=== PATIENT | female | born 1950 | race Two or more races ===

== ENCOUNTER 2018-04-21 12:09 | Inpatient (IN) | payer OTHER, MEDICAID ==
[~2018-04-21] VITALS: Ht 157.5 cm; Wt 72.2 kg
[~2018-04-21 12:09] MED LIST: GEMF600T3 PO; HYDR12.56 PO; MET50T GT; OMEP20CA74 OR
[2018-04-21] MEDS ORDERED: IPRATROPIUM BROM 0.5 MG/2.5ML INH SOL HHN ONE (12:45)
[2018-04-21] MEDS ORDERED: ALBUTEROL SULF 2.5 MG/0.5ML(0.5%) NEB SOLN HHN ONE (12:45)
[2018-04-21] MEDS ORDERED: methylPREDNISolone SOD SUCC 125 MG/2 ML VL IV ONE (12:45)
[2018-04-21 13:42] LABS: Basophils # (auto) 0.1 uL; Basophils % (auto) 0.9 % (0.0-2.0); Eosinophils # (auto) 0.1 uL; Eosinophils % (auto) 2.3 % (0.0-7.0); Hematocrit 39.7 % (36.0-46.0); Hemoglobin 13.1 g/dL (12.2-16.2); Lymphocytes # (auto) 1.4 uL; Lymphocytes % (auto) 26.2 % (10.0-50.0); Mean Corpuscular Hemoglobin 28.4 pg (28.0-32.0); Mean Corpuscular Hgb Conc. 32.9 g/dL (32.0-36.0); Mean Corpuscular Volume 86.3 fL (80.0-100.0); Monocytes # (auto) 0.3 uL; Monocytes % (auto) 5.4 % (0.0-12.0); Neutrophils # (auto) 3.5 uL; Neutrophils % (auto) 65.2 % (37.0-80.0); Nucleated Red Blood Cells % 0.1 %; Platelet Count (auto) 240 10^3/uL (140-450); Red Cell Distribution Width 18.4 % (11.8-14.3); White Blood Cell 5.4 10^3/uL (4.4-10.8)
[2018-04-21 13:50] LABS: Albumin 3.6 g/dL (3.4-5.0); BUN/Creatinine Ratio 18.9; Magnesium 2.3 mg/dL (1.6-2.6); Potassium 3.8 mmol/L (3.5-5.1)
[2018-04-21 13:55] LABS: Bilirubin, Total 0.6 mg/dL (0.2-1.0); Total Protein 7.3 g/dL (6.4-8.2)
[2018-04-21] MEDS ORDERED: ASPirin-EC 81 mg tab PO ONE (14:30)
[2018-04-21] MEDS ORDERED: LACTULOSE 20Gm/30ML SOLN PO PRN (14:45)
[2018-04-21] MEDS ORDERED: NITROGLYCERIN 0.4 MG SL TAB SL PRN (14:45)
[2018-04-21] MEDS ORDERED: ALBUTEROL SULF 2.5 MG/0.5ML(0.5%) NEB SOLN NEB PRN (14:45)
[2018-04-21] MEDS ORDERED: TEMAZEPAM 15 MG CAP PO PRN (14:45)
[2018-04-21] MEDS ORDERED: MORPHINE SULF INJ 2 MG/ML SYRINGE 1ML IV PRN (14:45)
[2018-04-21] MEDS ORDERED: ACETAMINOPHEN 500 MG TAB PO PRN (14:45)
[2018-04-21] MEDS ORDERED: LORazepam 0.5 MG TAB PO PRN (14:45)
[2018-04-21 14:54] VITALS: BP 146/107
[2018-04-21] MEDS ORDERED: ENOXAPARIN SOD 40 MG/0.4 ML SYRINGE SC SCH (15:00)
[2018-04-21 15:02] LABS: Urine Bacteria FEW /hpf (None Seen); Urine Blood Negative /uL (Negative); Urine Specific Gravity 1.012 (1.001-1.035); Urine WBC 15 /hpf (0 - 5)
[2018-04-21] MEDS ORDERED: POTASSIUM CHL 20 Meq TABLET PO ONE (15:15)
[2018-04-21] MEDS ORDERED: CARVEDILOL 12.5 MG TAB PO ONE (15:15)
[2018-04-21] MEDS ORDERED: FUROSEMIDE 40 MG/4 ML VIAL IV ONE (15:15)
[2018-04-21 15:22] LABS: Alcohol, Urine < 3.0 mg/dL (0-5); Amphetamine Screen, Urine NEGATIVE (NEGATIVE); Barbiturate Scree,Urine NEGATIVE (NEGATIVE); Benzodiazephine Screen, Urine NEGATIVE (NEGATIVE); Cannabinoid Screen, Urine POSITIVE (NEGATIVE); Cocaine Screen, Urine NEGATIVE (NEGATIVE); Opiate Scree,Urine NEGATIVE (NEGATIVE); Phencyclidine Screen, Urine NEGATIVE (NEGATIVE)
[2018-04-21] MEDS: NITROGLYCERIN 0.2MG/HR TOPICAL PATCH TD SCH (15:30)
[2018-04-21] MEDS: ENOXAPARIN SOD 60 MG/0.6 ML SYRINGE SC SCH ×2 (15:45→17:15)
[2018-04-21 17:00] VITALS: BP 147/96
[2018-04-21] MEDS: HYDROcodone-ACET 5/325MG TAB PO PRN (18:35)
[2018-04-21] MEDS: ALBUTEROL SULF 2.5 MG/0.5ML(0.5%) NEB SOLN NEB SCH ×2 (18:46→22:27)
[2018-04-21] MEDS: IPRATROPIUM BROM 0.5 MG/2.5ML INH SOL NEB SCH ×2 (18:46→22:27)
[2018-04-21] MEDS: MORPHINE SULF INJ 2 MG/ML SYRINGE 1ML IV PRN (21:39)
[2018-04-21] MEDS: CARVEDILOL 12.5 MG TAB PO SCH (21:46)
[2018-04-21] MEDS: ATORVASTATIN 20 MG TAB PO SCH (21:46)
[2018-04-21] MEDS: SODIUM CHLOR 0.9% PF (SALINE LOCK) 10ML VIAL/SYR IV SCH (21:48)
[2018-04-21 22:00] VITALS: BP 129/98
[2018-04-21] MEDS ORDERED: METOPROLOL TARTRATE 25 MG TAB PO SCH (22:00)
[2018-04-21] MEDS ORDERED: methylPREDNISolone SOD SUCC 40 MG/ML VL IV SCH (22:00)
[2018-04-22] MEDS: ENOXAPARIN SOD 60 MG/0.6 ML SYRINGE SC SCH ×2 (04:21→15:42)
[2018-04-22 04:54] VITALS: BP 144/81
[2018-04-22] MEDS: ALBUTEROL SULF 2.5 MG/0.5ML(0.5%) NEB SOLN NEB SCH ×3 (06:00→19:11)
[2018-04-22] MEDS: IPRATROPIUM BROM 0.5 MG/2.5ML INH SOL NEB SCH ×3 (06:00→19:12)
[2018-04-22 06:32] LABS: Basophils # (auto) 0 uL; Basophils % (auto) 0.1 % (0.0-2.0); Eosinophils # (auto) 0 uL; Hematocrit 40.2 % (36.0-46.0); Hemoglobin 13.6 g/dL (12.2-16.2); Lymphocytes # (auto) 0.8 uL; Mean Corpuscular Hgb Conc. 33.7 g/dL (32.0-36.0); Monocytes # (auto) 0.1 uL; Monocytes % (auto) 2.3 % (0.0-12.0); Neutrophils # (auto) 3.9 uL; Neutrophils % (auto) 81.6 % (37.0-80.0); Nucleated Red Blood Cells % 0.1 %; Platelet Count (auto) 258 10^3/uL (140-450); Red Blood Cells 4.68 10^6/uL (4.0-5.20); Red Cell Distribution Width 18.1 % (11.8-14.3); White Blood Cell 4.8 10^3/uL (4.4-10.8)
[2018-04-22] MEDS: SODIUM CHLOR 0.9% PF (SALINE LOCK) 10ML VIAL/SYR IV SCH ×3 (07:11→21:47)
[2018-04-22] MEDS: MORPHINE SULF INJ 2 MG/ML SYRINGE 1ML IV PRN ×3 (07:12→21:47)
[2018-04-22 07:17] LABS: Albumin 3.8 g/dL (3.4-5.0); BUN/Creatinine Ratio 21.4; Bilirubin, Total 1.2 mg/dL (0.2-1.0); Calcium 9.1 mg/dL (8.5-10.1); Potassium 4.1 mmol/L (3.5-5.1); Total Protein 7.5 g/dL (6.4-8.2)
[2018-04-22 09:00] VITALS: BP 127/102
[2018-04-22] MEDS ORDERED: cloNIDine HCL 0.1 MG TAB PO PRN (10:00)
[2018-04-22] MEDS ORDERED: PROMETHAZINE-DM 5 ML ORAL SYRUP PO PRN (10:00)
[2018-04-22] MEDS: POTASSIUM CHL 20 Meq TABLET PO SCH (10:37)
[2018-04-22] MEDS: NITROGLYCERIN 0.2MG/HR TOPICAL PATCH TD SCH (10:41)
[2018-04-22] MEDS: FUROSEMIDE 40 MG/4 ML VIAL IV SCH (10:41)
[2018-04-22] MEDS: ENALAPRIL MALEATE 2.5 MG TAB PO SCH (10:42)
[2018-04-22] MEDS: HCTZ 25 MG TAB PO SCH (10:42)
[2018-04-22] MEDS: ASPirin 81 mg TAB PO SCH (10:43)
[2018-04-22] MEDS: CARVEDILOL 12.5 MG TAB PO SCH ×2 (10:44→21:35)
[2018-04-22] MEDS: GEMFIBROZIL 600 MG TAB PO SCH (10:44)
[2018-04-22] MEDS: PANTOPRAZOLE 40 MG TAB PO SCH (10:44)
[2018-04-22 13:00] VITALS: BP 145/107
[2018-04-22] MEDS ORDERED: CLOPIDOGREL 300 MG TAB PO ONE (13:00)
[2018-04-22 21:32] VITALS: BP 152/92
[2018-04-22] MEDS: ATORVASTATIN 20 MG TAB PO SCH (21:35)
[2018-04-22] MEDS: HYDROcodone-ACET 5/325MG TAB PO PRN (21:36)
[2018-04-23 03:05] VITALS: BP 136/90
[2018-04-23] MEDS: ENOXAPARIN SOD 60 MG/0.6 ML SYRINGE SC SCH ×2 (03:42→15:17)
[2018-04-23 05:00] VITALS: BP 141/92
[2018-04-23] MEDS: ALBUTEROL SULF 2.5 MG/0.5ML(0.5%) NEB SOLN NEB SCH ×4 (05:34→18:20)
[2018-04-23] MEDS: IPRATROPIUM BROM 0.5 MG/2.5ML INH SOL NEB SCH ×4 (05:34→18:20)
[2018-04-23 06:48] LABS: Basophils # (auto) 0 uL; Basophils % (auto) 0.5 % (0.0-2.0); Eosinophils # (auto) 0.1 uL; Eosinophils % (auto) 1.6 % (0.0-7.0); Hemoglobin 13.4 g/dL (12.2-16.2); Lymphocytes # (auto) 1.5 uL; Lymphocytes % (auto) 22.7 % (10.0-50.0); Mean Corpuscular Hemoglobin 29.7 pg (28.0-32.0); Mean Corpuscular Hgb Conc. 34.2 g/dL (32.0-36.0); Mean Corpuscular Volume 86.7 fL (80.0-100.0); Monocytes # (auto) 0.3 uL; Monocytes % (auto) 4.6 % (0.0-12.0); Neutrophils # (auto) 4.7 uL; Neutrophils % (auto) 70.6 % (37.0-80.0); Platelet Count (auto) 246 10^3/uL (140-450); Red Cell Distribution Width 18.1 % (11.8-14.3); White Blood Cell 6.7 10^3/uL (4.4-10.8)
[2018-04-23 07:00] LABS: BUN/Creatinine Ratio 24.7; Calcium 8.9 mg/dL (8.5-10.1); Potassium 3.2 mmol/L (3.5-5.1)
[2018-04-23] MEDS: SODIUM CHLOR 0.9% PF (SALINE LOCK) 10ML VIAL/SYR IV SCH ×3 (07:03→22:25)
[2018-04-23] MEDS: PROMETHAZINE HCL 25 MG/ML 1ML IV PRN ×3 (07:03→22:27)
[2018-04-23] MEDS: MORPHINE SULF INJ 2 MG/ML SYRINGE 1ML IV PRN ×3 (07:04→22:28)
[2018-04-23] MEDS ORDERED: MIDAZOLAM HCL 1MG/1ML-2 ML VIAL IV ONE (07:45)
[2018-04-23] MEDS ORDERED: LIDOCAINE VISCOUS 2% 15ML UD MT ONE (07:45)
[2018-04-23] MEDS ORDERED: fentaNYL CITRATE 100 MCG/2 ML VL IV ONE (07:45)
[2018-04-23 09:00] VITALS: BP 144/81
[2018-04-23] MEDS: PANTOPRAZOLE 40 MG TAB PO SCH (11:06)
[2018-04-23] MEDS: GEMFIBROZIL 600 MG TAB PO SCH (11:06)
[2018-04-23] MEDS: ASPirin 81 mg TAB PO SCH (11:07)
[2018-04-23] MEDS: CARVEDILOL 12.5 MG TAB PO SCH (11:07)
[2018-04-23] MEDS: CLOPIDOGREL BISULFATE 75 MG TAB PO SCH (11:07)
[2018-04-23] MEDS: POTASSIUM CHL 20 Meq TABLET PO SCH (11:07)
[2018-04-23] MEDS: ENALAPRIL MALEATE 2.5 MG TAB PO SCH (11:08)
[2018-04-23] MEDS: NITROGLYCERIN 0.2MG/HR TOPICAL PATCH TD SCH (11:08)
[2018-04-23 12:20] VITALS: BP 131/91
[2018-04-23] MEDS ORDERED: POTASSIUM CHL 20 Meq TABLET PO ONE (13:00)
[2018-04-23] MEDS: FUROSEMIDE 40 MG/4 ML VIAL IV SCH (13:52)
[2018-04-23] MEDS: HCTZ 25 MG TAB PO SCH (13:53)
[2018-04-23] MEDS ORDERED: AZITHROMYCIN 250 MG TAB PO ONE (14:00)
[2018-04-23 16:55] VITALS: BP 99/72
[2018-04-23] MEDS: CEPHALEXIN 250 MG CAP PO SCH (18:58)
[2018-04-23 22:00] VITALS: BP 108/69
[2018-04-23] MEDS: CARVEDILOL 3.125 MG TAB PO SCH (22:26)
[2018-04-23] MEDS: ATORVASTATIN 20 MG TAB PO SCH (22:26)
[2018-04-24] VITALS (7 sets, daily range): BP systolic 80–128; BP diastolic 18–93
[2018-04-24] MEDS: IPRATROPIUM BROM 0.5 MG/2.5ML INH SOL NEB SCH ×3 (00:45→11:48)
[2018-04-24] MEDS: ALBUTEROL SULF 2.5 MG/0.5ML(0.5%) NEB SOLN NEB SCH ×3 (00:45→11:48)
[2018-04-24] MEDS: CEPHALEXIN 250 MG CAP PO SCH ×4 (00:56→17:11)
[2018-04-24] MEDS: ENOXAPARIN SOD 60 MG/0.6 ML SYRINGE SC SCH ×2 (03:43→15:06)
[2018-04-24 05:21] LABS: Basophils # (auto) 0.1 uL; Basophils % (auto) 0.9 % (0.0-2.0); Eosinophils # (auto) 0.3 uL; Eosinophils % (auto) 3.5 % (0.0-7.0); Hematocrit 45.7 % (36.0-46.0); Lymphocytes # (auto) 2.5 uL; Lymphocytes % (auto) 33.8 % (10.0-50.0); Mean Corpuscular Hemoglobin 28.4 pg (28.0-32.0); Mean Corpuscular Hgb Conc. 32.7 g/dL (32.0-36.0); Mean Corpuscular Volume 86.7 fL (80.0-100.0); Monocytes # (auto) 0.4 uL; Monocytes % (auto) 5.4 % (0.0-12.0); Neutrophils # (auto) 4.1 uL; Neutrophils % (auto) 56.4 % (37.0-80.0); Platelet Count (auto) 196 10^3/uL (140-450); Red Blood Cells 5.27 10^6/uL (4.0-5.20); Red Cell Distribution Width 18.3 % (11.8-14.3); White Blood Cell 7.3 10^3/uL (4.4-10.8)
[2018-04-24 06:06] LABS: BUN/Creatinine Ratio 20.1; Calcium 8.4 mg/dL (8.5-10.1); Potassium 3.6 mmol/L (3.5-5.1)
[2018-04-24] MEDS: SODIUM CHLOR 0.9% PF (SALINE LOCK) 10ML VIAL/SYR IV SCH ×2 (06:11→13:21)
[2018-04-24] MEDS: PROMETHAZINE HCL 25 MG/ML 1ML IV PRN ×2 (08:42→14:23)
[2018-04-24] MEDS: MORPHINE SULF INJ 2 MG/ML SYRINGE 1ML IV PRN ×2 (08:42→14:24)
[2018-04-24] MEDS: FUROSEMIDE 40 MG/4 ML VIAL IV SCH (09:17)
[2018-04-24] MEDS: NITROGLYCERIN 0.2MG/HR TOPICAL PATCH TD SCH (09:17)
[2018-04-24] MEDS: ASPirin 81 mg TAB PO SCH (09:18)
[2018-04-24] MEDS: CARVEDILOL 3.125 MG TAB PO SCH (09:18)
[2018-04-24] MEDS: POTASSIUM CHL 20 Meq TABLET PO SCH (09:18)
[2018-04-24] MEDS: ENALAPRIL MALEATE 2.5 MG TAB PO SCH (09:19)
[2018-04-24] MEDS: GEMFIBROZIL 600 MG TAB PO SCH (09:19)
[2018-04-24] MEDS: CLOPIDOGREL BISULFATE 75 MG TAB PO SCH (09:19)
[2018-04-24] MEDS: PANTOPRAZOLE 40 MG TAB PO SCH (09:19)
[2018-04-24] MEDS: HCTZ 25 MG TAB PO SCH (09:19)
[2018-04-24] MEDS ORDERED: AZITHROMYCIN 250 MG TAB PO SCH (10:00)
[2018-04-30] MEDS ORDERED: ATOR1TAB PO (07:41)
[2018-04-30] MEDS ORDERED: LEVO200T45 PO (07:41)
[2018-04-30] MEDS ORDERED: METO25TA62 PO (07:41)
[2018-04-30] MEDS ORDERED: ASPI-325 PO (07:41)
[2018-04-30] MEDS ORDERED: AMLO10TA2 PO (07:41)
== END 2018-04-24 18:35 | disposition home or self-care (01) | DRG 280 ==
LOC: ER 12:09 → EDBD 12:09 → TELE 12:10 → TELE-WESTW 16:07
PROVIDERS: ADMIT Internal Medicine; ATTEND Internal Medicine
DX: I13.0 Hypertensive heart and chronic kidney disease with heart failure and stage 1 through stage 4 chronic kidney disease, or unspecified chronic kidney disease (principal); I21.4 Non-ST elevation (NSTEMI) myocardial infarction; I50.43 Acute on chronic combined systolic (congestive) and diastolic (congestive) heart failure; J96.91 Respiratory failure, unspecified with hypoxia; J44.1 Chronic obstructive pulmonary disease with (acute) exacerbation; J45.901 Unspecified asthma with (acute) exacerbation; E87.1 Hypo-osmolality and hyponatremia; I48.1 Persistent atrial fibrillation; E03.9 Hypothyroidism, unspecified; E78.5 Hyperlipidemia, unspecified; F17.210 Nicotine dependence, cigarettes, uncomplicated; I25.110 Atherosclerotic heart disease of native coronary artery with unstable angina pectoris; N18.3 Chronic kidney disease, stage 3 (moderate); L98.9 Disorder of the skin and subcutaneous tissue, unspecified; Z86.718 Personal history of other venous thrombosis and embolism; I25.2 Old myocardial infarction; Z95.5 Presence of coronary angioplasty implant and graft; Z88.5 Allergy status to narcotic agent; Z88.1 Allergy status to other antibiotic agents; Z91.14 Patient's other noncompliance with medication regimen
CPT/HCPCS: 36415; 71046; 80048; 80053; 80061; 80307; 81001; 82550; 83605; 83735; 83880; 84443; 84484; 85025; 85379; 85652; 86141; 87040; 93005; 93312; 94640; 94761; 96374; 96375; 99152; J2250

== ENCOUNTER 2018-07-12 15:53 | Inpatient (IN) | payer MEDICARE, MEDICAID ==
[~2018-07-12] VITALS: Ht 157.5 cm; Wt 67.0 kg
[~2018-07-12 15:53] MED LIST changes: +AMLO10TA12 PO; +ASPI-325 PO; +ATOR1TAB PO; -GEMF600T3 PO; +GEMF600T7 PO; +LEVO200T7 PO; -MET50T GT
[2018-07-12 17:07] LABS: Urine Bacteria FEW /hpf (None Seen); Urine Blood Negative /uL (Negative); Urine Mucus MODERATE (None Seen); Urine Specific Gravity 1.029 (1.001-1.035); Urine WBC 32 /hpf (0 - 5)
[2018-07-12] MEDS ORDERED: ASPirin 81 mg TAB PO ONE (17:15)
[2018-07-12] MEDS ORDERED: ONDANSETRON HCL 4 MG/2 ML VIAL IV ONE ×2 (17:45→19:45)
[2018-07-12] MEDS ORDERED: MORPHINE SULFATE 4 MG/ML SYR/VIAL IV ONE ×2 (17:45→19:45)
[2018-07-12 18:47] LABS: Basophils # (auto) 0.1 uL; Basophils % (auto) 0.9 % (0.0-2.0); Eosinophils # (auto) 0.2 uL; Hemoglobin 10.4 g/dL (12.2-16.2); Lymphocytes # (auto) 1.3 uL; Lymphocytes % (auto) 20.3 % (10.0-50.0); Mean Corpuscular Hemoglobin 28.4 pg (28.0-32.0); Mean Corpuscular Hgb Conc. 33.7 g/dL (32.0-36.0); Mean Corpuscular Volume 84.3 fL (80.0-100.0); Monocytes # (auto) 0.6 uL; Monocytes % (auto) 9.4 % (0.0-12.0); Neutrophils # (auto) 4.1 uL; Neutrophils % (auto) 66.4 % (37.0-80.0); Platelet Count (auto) 306 10^3/uL (140-450); Red Blood Cells 3.67 10^6/uL (4.0-5.20); Red Cell Distribution Width 14.1 % (11.8-14.3); White Blood Cell 6.2 10^3/uL (4.4-10.8)
[2018-07-12 19:01] LABS: INR 1.05 (0.9-1.15); Partial Thromboplastin Time 28.5 sec (23.78-33.04); Prothrombin Time 11.2 sec (9.27-12.13)
[2018-07-12 19:03] LABS: Albumin 3.2 g/dL (3.4-5.0); BUN/Creatinine Ratio 37.1; Calcium 8.3 mg/dL (8.5-10.1); Magnesium 1.8 mg/dL (1.6-2.6); Potassium 3.9 mmol/L (3.5-5.1)
[2018-07-12 19:08] LABS: Bilirubin, Total 0.4 mg/dL (0.2-1.0); Total Protein 6.3 g/dL (6.4-8.2)
[2018-07-12] MEDS ORDERED: SOTA80TA PO (20:01)
[2018-07-12] MEDS ORDERED: CARV12.544 PO (20:01)
[2018-07-12] MEDS ORDERED: FENO1TAB42 PO (20:01)
[2018-07-12] MEDS ORDERED: METO25TA62 PO (20:01)
[2018-07-12] MEDS ORDERED: POTA10TA51 PO (20:01)
[2018-07-12] MEDS ORDERED: CLOP75TA41 PO (20:01)
[2018-07-12] MEDS ORDERED: NITROGLYCERIN 0.4 MG SL TAB SL PRN (20:45)
[2018-07-12] MEDS ORDERED: MORPHINE SULFATE 4 MG/ML SYR/VIAL IV PRN (20:45)
[2018-07-12] MEDS ORDERED: ONDANSETRON HCL 4 MG/2 ML VIAL IV PRN (20:45)
[2018-07-12] MEDS ORDERED: DOCUSATE SOD 100 MG CAP PO PRN (20:45)
[2018-07-12] MEDS ORDERED: cefTRIAXone 1GM/10ml IVPUSH 10 ML IV ONE (21:00)
[2018-07-12] MEDS: CARVEDILOL 12.5 MG TAB PO SCH (21:23)
[2018-07-12] MEDS: ATORVASTATIN 20 MG TAB PO SCH (21:23)
[2018-07-12] MEDS: FAMOTIDINE 20 MG TAB PO SCH (22:12)
[2018-07-12] MEDS: SOTALOL HCL 80 MG TAB PO SCH (22:12)
[2018-07-12 22:30] VITALS: BP 115/80
[2018-07-12 23:30] VITALS: BP 115/80
[2018-07-12] MEDS: TEMAZEPAM 15 MG CAP PO PRN (23:38)
[2018-07-13] MEDS ORDERED: TIOT1AER IN (00:13)
[2018-07-13 05:01] VITALS: BP 113/79
[2018-07-13] MEDS: LEVOTHYROXINE SODIUM 50 MCG TAB PO SCH (06:15)
[2018-07-13 06:37] LABS: Basophils # (auto) 0 uL; Basophils % (auto) 0.5 % (0.0-2.0); Eosinophils # (auto) 0.2 uL; Eosinophils % (auto) 4.4 % (0.0-7.0); Hematocrit 32.7 % (36.0-46.0); Hemoglobin 10.7 g/dL (12.2-16.2); Lymphocytes # (auto) 1.2 uL; Lymphocytes % (auto) 23.7 % (10.0-50.0); Mean Corpuscular Hemoglobin 27.8 pg (28.0-32.0); Mean Corpuscular Hgb Conc. 32.8 g/dL (32.0-36.0); Mean Corpuscular Volume 84.9 fL (80.0-100.0); Monocytes # (auto) 0.5 uL; Monocytes % (auto) 10.5 % (0.0-12.0); Neutrophils # (auto) 3.1 uL; Neutrophils % (auto) 60.9 % (37.0-80.0); Platelet Count (auto) 309 10^3/uL (140-450); Red Blood Cells 3.85 10^6/uL (4.0-5.20); Red Cell Distribution Width 13.9 % (11.8-14.3)
[2018-07-13 06:58] LABS: Albumin 3.2 g/dL (3.4-5.0); BUN/Creatinine Ratio 32.4; Bilirubin, Total 0.4 mg/dL (0.2-1.0); Calcium 8.7 mg/dL (8.5-10.1); Total Protein 6.4 g/dL (6.4-8.2)
[2018-07-13 08:00] VITALS: BP 124/84
[2018-07-13] MEDS: SOTALOL HCL 80 MG TAB PO SCH ×2 (09:54→21:59)
[2018-07-13] MEDS: cefTRIAXone 1GM/10ml IVPUSH 10 ML IV SCH (09:54)
[2018-07-13] MEDS: FAMOTIDINE 20 MG TAB PO SCH ×2 (09:57→21:59)
[2018-07-13] MEDS: CLOPIDOGREL BISULFATE 75 MG TAB PO SCH (09:58)
[2018-07-13] MEDS: ENOXAPARIN SOD 40 MG/0.4 ML SYRINGE SC SCH (09:58)
[2018-07-13] MEDS: CARVEDILOL 12.5 MG TAB PO SCH ×2 (10:03→21:53)
[2018-07-13] MEDS: ASPirin 81 mg TAB PO SCH (10:03)
[2018-07-13] MEDS: amLODIPine BESYLATE 5 MG TAB PO SCH (10:04)
[2018-07-13] MEDS: ACETAMINOPHEN 325 MG TAB PO PRN (10:05)
[2018-07-13 12:45] VITALS: BP 113/84
[2018-07-13 16:59] VITALS: BP 119/73
[2018-07-13] MEDS: ATORVASTATIN 20 MG TAB PO SCH (21:59)
[2018-07-13 22:00] VITALS: BP 143/95
[2018-07-13] MEDS: TEMAZEPAM 15 MG CAP PO PRN (22:00)
[2018-07-14 05:00] VITALS: BP 116/80
[2018-07-14] MEDS: LEVOTHYROXINE SODIUM 50 MCG TAB PO SCH (06:20)
[2018-07-14 08:00] VITALS: BP 118/79
[2018-07-14] MEDS: ASPirin 81 mg TAB PO SCH (09:04)
[2018-07-14] MEDS: cefTRIAXone 1GM/10ml IVPUSH 10 ML IV SCH (09:04)
[2018-07-14] MEDS: CARVEDILOL 12.5 MG TAB PO SCH (09:05)
[2018-07-14] MEDS: SOTALOL HCL 80 MG TAB PO SCH (09:05)
[2018-07-14] MEDS: CLOPIDOGREL BISULFATE 75 MG TAB PO SCH (09:06)
[2018-07-14] MEDS: amLODIPine BESYLATE 5 MG TAB PO SCH (09:06)
[2018-07-14] MEDS: ENOXAPARIN SOD 40 MG/0.4 ML SYRINGE SC SCH (09:06)
[2018-07-14] MEDS: FAMOTIDINE 20 MG TAB PO SCH ×2 (09:06→21:41)
[2018-07-14 09:26] VITALS: BP 118/79
[2018-07-14] MEDS ORDERED: LOPERAMIDE HCL 2 MG CAP PO ONE (10:45)
[2018-07-14] MEDS ORDERED: LOPERAMIDE HCL 2 MG CAP PO PRN (10:45)
[2018-07-14 11:16] VITALS: BP 118/79
[2018-07-14 13:20] VITALS: BP 121/77
[2018-07-14] MEDS: IPRATROPIUM BROM 0.5 MG/2.5ML INH SOL NEB SCH ×3 (13:34→22:31)
[2018-07-14] MEDS: ALBUTEROL SULF 2.5 MG/0.5ML(0.5%) NEB SOLN NEB SCH ×3 (13:34→22:31)
[2018-07-14] MEDS ORDERED: DIGOXIN 0.25 MG TAB PO ONE (14:30)
[2018-07-14 17:00] VITALS: BP 119/67
[2018-07-14] MEDS: SPIRONOLACTONE 25 MG TAB PO SCH (18:27)
[2018-07-14] MEDS: SACUBITRIL-VALSARTAN 24mg/26mg TAB PO SCH (21:40)
[2018-07-14] MEDS: APIXABAN 5 MG TAB PO SCH (21:40)
[2018-07-14] MEDS: TEMAZEPAM 15 MG CAP PO PRN (21:41)
[2018-07-14] MEDS: ATORVASTATIN 20 MG TAB PO SCH (21:41)
[2018-07-15] MEDS: IPRATROPIUM BROM 0.5 MG/2.5ML INH SOL NEB SCH ×6 (02:15→22:46)
[2018-07-15] MEDS: ALBUTEROL SULF 2.5 MG/0.5ML(0.5%) NEB SOLN NEB SCH ×6 (02:15→22:46)
[2018-07-15 05:00] VITALS: BP 119/66
[2018-07-15] MEDS: SPIRONOLACTONE 25 MG TAB PO SCH ×2 (06:46→18:25)
[2018-07-15] MEDS: LEVOTHYROXINE SODIUM 50 MCG TAB PO SCH (06:46)
[2018-07-15 07:41] VITALS: BP 121/87
[2018-07-15 09:28] VITALS: BP 121/87
[2018-07-15] MEDS: CLOPIDOGREL BISULFATE 75 MG TAB PO SCH (09:47)
[2018-07-15] MEDS: cefTRIAXone 1GM/10ml IVPUSH 10 ML IV SCH (09:47)
[2018-07-15] MEDS: APIXABAN 5 MG TAB PO SCH ×2 (09:49→21:20)
[2018-07-15] MEDS: amLODIPine BESYLATE 5 MG TAB PO SCH (09:50)
[2018-07-15] MEDS: SACUBITRIL-VALSARTAN 24mg/26mg TAB PO SCH ×2 (09:50→21:21)
[2018-07-15] MEDS: FAMOTIDINE 20 MG TAB PO SCH ×2 (09:50→21:20)
[2018-07-15] MEDS: ACETAMINOPHEN 325 MG TAB PO PRN (09:51)
[2018-07-15] MEDS: DIGOXIN 0.125 MG TAB PO SCH ×2 (10:00→22:42)
[2018-07-15] MEDS: HYDROcodone-ACET 5/325MG TAB PO PRN ×2 (12:01→18:25)
[2018-07-15 12:30] VITALS: BP 121/87
[2018-07-15 17:21] VITALS: BP 127/75
[2018-07-15] MEDS: ATORVASTATIN 20 MG TAB PO SCH (21:20)
[2018-07-15] MEDS: TEMAZEPAM 15 MG CAP PO PRN (21:20)
[2018-07-15 22:00] VITALS: BP 116/79
[2018-07-16] MEDS: HYDROcodone-ACET 5/325MG TAB PO PRN ×3 (00:02→21:47)
[2018-07-16] MEDS: IPRATROPIUM BROM 0.5 MG/2.5ML INH SOL NEB SCH ×6 (02:10→22:22)
[2018-07-16] MEDS: ALBUTEROL SULF 2.5 MG/0.5ML(0.5%) NEB SOLN NEB SCH ×6 (02:10→22:22)
[2018-07-16 05:30] VITALS: BP 105/69
[2018-07-16] MEDS: LEVOTHYROXINE SODIUM 50 MCG TAB PO SCH (06:14)
[2018-07-16] MEDS: SPIRONOLACTONE 25 MG TAB PO SCH ×2 (06:15→17:45)
[2018-07-16 08:00] VITALS: BP 103/61
[2018-07-16 09:00] VITALS: BP 103/61
[2018-07-16] MEDS: FAMOTIDINE 20 MG TAB PO SCH ×2 (09:40→21:40)
[2018-07-16] MEDS: APIXABAN 5 MG TAB PO SCH ×2 (09:40→21:40)
[2018-07-16] MEDS: cefTRIAXone 1GM/10ml IVPUSH 10 ML IV SCH (09:40)
[2018-07-16] MEDS: amLODIPine BESYLATE 5 MG TAB PO SCH (09:42)
[2018-07-16] MEDS: DIGOXIN 0.125 MG TAB PO SCH (09:42)
[2018-07-16] MEDS: CLOPIDOGREL BISULFATE 75 MG TAB PO SCH (09:44)
[2018-07-16] MEDS: SACUBITRIL-VALSARTAN 24mg/26mg TAB PO SCH ×2 (10:00→21:40)
[2018-07-16 13:00] VITALS: BP 95/48
[2018-07-16 17:00] VITALS: BP 131/68
[2018-07-16] MEDS: ATORVASTATIN 20 MG TAB PO SCH (21:40)
[2018-07-16] MEDS: TEMAZEPAM 15 MG CAP PO PRN (21:47)
[2018-07-16 22:27] VITALS: BP_SYST 102
[2018-07-17] MEDS: ALBUTEROL SULF 2.5 MG/0.5ML(0.5%) NEB SOLN NEB SCH ×6 (02:19→22:25)
[2018-07-17] MEDS: IPRATROPIUM BROM 0.5 MG/2.5ML INH SOL NEB SCH ×6 (02:19→22:25)
[2018-07-17 06:05] VITALS: BP 99/70
[2018-07-17] MEDS: SPIRONOLACTONE 25 MG TAB PO SCH ×2 (06:07→18:41)
[2018-07-17] MEDS: cefTRIAXone 1GM/10ml IVPUSH 10 ML IV SCH (08:50)
[2018-07-17] MEDS: HYDROcodone-ACET 5/325MG TAB PO PRN ×2 (08:50→22:55)
[2018-07-17 09:00] VITALS: BP 102/62
[2018-07-17 09:28] VITALS: BP 102/72
[2018-07-17] MEDS: APIXABAN 5 MG TAB PO SCH ×2 (10:25→21:28)
[2018-07-17] MEDS: CLOPIDOGREL BISULFATE 75 MG TAB PO SCH (10:25)
[2018-07-17] MEDS: FAMOTIDINE 20 MG TAB PO SCH ×2 (10:25→21:28)
[2018-07-17] MEDS: DIGOXIN 0.125 MG TAB PO SCH (10:25)
[2018-07-17] MEDS: amLODIPine BESYLATE 5 MG TAB PO SCH (10:27)
[2018-07-17] MEDS: SACUBITRIL-VALSARTAN 24mg/26mg TAB PO SCH ×2 (10:33→21:28)
[2018-07-17 12:59] VITALS: BP 108/60
[2018-07-17] MEDS: LORazepam 0.5 MG TAB PO PRN ×2 (13:26→21:28)
[2018-07-17] MEDS ORDERED: SOTALOL HCL 80 MG TAB PO ONE (16:15)
[2018-07-17 17:00] VITALS: BP 110/64
[2018-07-17] MEDS: SOTALOL HCL 80 MG TAB PO SCH (21:28)
[2018-07-17] MEDS: ATORVASTATIN 20 MG TAB PO SCH (21:28)
[2018-07-17 22:00] VITALS: BP 103/70
[2018-07-17] MEDS: TEMAZEPAM 15 MG CAP PO PRN (22:55)
[2018-07-18] MEDS: ALBUTEROL SULF 2.5 MG/0.5ML(0.5%) NEB SOLN NEB SCH ×6 (03:00→22:19)
[2018-07-18] MEDS: IPRATROPIUM BROM 0.5 MG/2.5ML INH SOL NEB SCH ×6 (03:00→22:19)
[2018-07-18 05:31] VITALS: BP 98/60
[2018-07-18] MEDS: SPIRONOLACTONE 25 MG TAB PO SCH ×2 (05:46→18:19)
[2018-07-18 08:24] VITALS: BP 106/71
[2018-07-18] MEDS: cefTRIAXone 1GM/10ml IVPUSH 10 ML IV SCH (09:11)
[2018-07-18] MEDS: CLOPIDOGREL BISULFATE 75 MG TAB PO SCH (10:35)
[2018-07-18] MEDS: SOTALOL HCL 80 MG TAB PO SCH (10:35)
[2018-07-18] MEDS: FAMOTIDINE 20 MG TAB PO SCH ×2 (10:35→21:22)
[2018-07-18] MEDS: amLODIPine BESYLATE 5 MG TAB PO SCH (10:35)
[2018-07-18] MEDS: APIXABAN 5 MG TAB PO SCH ×2 (10:36→21:21)
[2018-07-18] MEDS: DIGOXIN 0.125 MG TAB PO SCH (10:36)
[2018-07-18] MEDS: SACUBITRIL-VALSARTAN 24mg/26mg TAB PO SCH ×2 (10:53→21:23)
[2018-07-18] MEDS ORDERED: METOPROLOL TARTRATE 25 MG TAB PO ONE (11:30)
[2018-07-18 12:27] VITALS: BP 103/79
[2018-07-18] MEDS: LORazepam 0.5 MG TAB PO PRN ×2 (13:09→21:21)
[2018-07-18 17:08] VITALS: BP 104/65
[2018-07-18] MEDS: ATORVASTATIN 20 MG TAB PO SCH (21:21)
[2018-07-18] MEDS: METOPROLOL TARTRATE 25 MG TAB PO SCH (21:22)
[2018-07-18 22:00] VITALS: BP 117/75
[2018-07-18] MEDS: HYDROcodone-ACET 5/325MG TAB PO PRN (22:40)
[2018-07-18] MEDS: TEMAZEPAM 15 MG CAP PO PRN (22:40)
[2018-07-19] MEDS: ALBUTEROL SULF 2.5 MG/0.5ML(0.5%) NEB SOLN NEB SCH ×5 (02:05→14:00)
[2018-07-19] MEDS: IPRATROPIUM BROM 0.5 MG/2.5ML INH SOL NEB SCH ×5 (02:05→14:00)
[2018-07-19] MEDS: SPIRONOLACTONE 25 MG TAB PO SCH (06:00)
[2018-07-19 06:14] VITALS: BP 91/73
[2018-07-19 08:47] VITALS: BP 112/86
[2018-07-19] MEDS: CLOPIDOGREL BISULFATE 75 MG TAB PO SCH (10:00)
[2018-07-19] MEDS: cefTRIAXone 1GM/10ml IVPUSH 10 ML IV SCH (10:00)
[2018-07-19] MEDS: APIXABAN 5 MG TAB PO SCH (10:00)
[2018-07-19] MEDS: METOPROLOL TARTRATE 25 MG TAB PO SCH (10:02)
[2018-07-19] MEDS: amLODIPine BESYLATE 5 MG TAB PO SCH (10:02)
[2018-07-19] MEDS: DIGOXIN 0.125 MG TAB PO SCH (10:03)
[2018-07-19] MEDS: SACUBITRIL-VALSARTAN 24mg/26mg TAB PO SCH (10:03)
[2018-07-19] MEDS: FAMOTIDINE 20 MG TAB PO SCH (10:03)
[2018-07-19] MEDS: HYDROcodone-ACET 5/325MG TAB PO PRN (10:10)
[2018-07-19] MEDS: LORazepam 0.5 MG TAB PO PRN (10:25)
[2018-07-19 13:12] VITALS: BP 116/76
== END 2018-07-19 15:55 | disposition home or self-care (01) | DRG 190 ==
LOC: ER 15:53 → EDBD 15:53 → EDUNIT# 15:53 → TELE 15:54 → TELE-CENTR 22:40
PROVIDERS: ADMIT Nurse Practitioner; ATTEND Family Medicine
DX: J44.1 Chronic obstructive pulmonary disease with (acute) exacerbation (principal); I50.23 Acute on chronic systolic (congestive) heart failure; N39.0 Urinary tract infection, site not specified; I48.92 Unspecified atrial flutter; I11.0 Hypertensive heart disease with heart failure; I25.10 Atherosclerotic heart disease of native coronary artery without angina pectoris; E03.9 Hypothyroidism, unspecified; E05.90 Thyrotoxicosis, unspecified without thyrotoxic crisis or storm; I48.2 Chronic atrial fibrillation; I34.0 Nonrheumatic mitral (valve) insufficiency; I35.1 Nonrheumatic aortic (valve) insufficiency; E78.00 Pure hypercholesterolemia, unspecified; K21.9 Gastro-esophageal reflux disease without esophagitis; E78.5 Hyperlipidemia, unspecified; F17.210 Nicotine dependence, cigarettes, uncomplicated; I25.2 Old myocardial infarction; Z79.01 Long term (current) use of anticoagulants; Z86.718 Personal history of other venous thrombosis and embolism; Z95.5 Presence of coronary angioplasty implant and graft; Z88.5 Allergy status to narcotic agent; Z88.1 Allergy status to other antibiotic agents
CPT/HCPCS: 36415; 71045; 80053; 81001; 83735; 83880; 84443; 84484; 85025; 85610; 85730; 93005; 93971; 94640; 96374; 96375; 96376; J0696; J2405

== ENCOUNTER 2018-09-13 19:25 | Emergency (ER) | payer MEDICARE, MEDICAID ==
[~2018-09-13] VITALS: Ht 157.5 cm; Wt 63.5 kg
[~2018-09-13 19:25] MED LIST changes: +CARV12.544 PO; +CLOP75TA41 PO; +FENO1TAB42 PO; -GEMF600T7 PO; -HYDR12.56 PO; +METO25TA62 PO; -OMEP20CA74 OR; +POTA10TA51 PO; +SOTA80TA PO; +TIOT1AER IN
[2018-09-13] MEDS ORDERED: ONDANSETRON HCL 4 MG/2 ML VIAL IV ONE (20:45)
[2018-09-13] MEDS ORDERED: SODIUM CHLORIDE 0.9% 500 ML IV ONE (20:45)
[2018-09-13] MEDS ORDERED: KETOROLAC TROMETH 30 MG/ML 1ML VIAL IV ONE (21:00)
[2018-09-13 21:05] LABS: Basophils # (auto) 0 uL; Basophils % (auto) 0.5 % (0.0-2.0); Eosinophils # (auto) 0.2 uL; Eosinophils % (auto) 2.4 % (0.0-7.0); Hematocrit 38.3 % (36.0-46.0); Hemoglobin 12.6 g/dL (12.2-16.2); Lymphocytes # (auto) 1.4 uL; Lymphocytes % (auto) 21.7 % (10.0-50.0); Mean Corpuscular Hgb Conc. 32.9 g/dL (32.0-36.0); Monocytes # (auto) 0.6 uL; Monocytes % (auto) 9.5 % (0.0-12.0); Neutrophils # (auto) 4.1 uL; Neutrophils % (auto) 65.9 % (37.0-80.0); Platelet Count (auto) 275 10^3/uL (140-450); White Blood Cell 6.3 10^3/uL (4.4-10.8)
[2018-09-13 21:11] LABS: Red Cell Distribution Width 20.2 % (11.8-14.3)
[2018-09-13 21:14] LABS: Urine Bacteria NONE SEEN /hpf (None Seen); Urine Blood Negative /uL (Negative); Urine Specific Gravity 1.009 (1.001-1.035); Urine WBC 1 /hpf (0 - 5)
[2018-09-13 21:17] LABS: Albumin 3.6 g/dL (3.4-5.0); BUN/Creatinine Ratio 24.3; Calcium 7.8 mg/dL (8.5-10.1); Magnesium 2.1 mg/dL (1.6-2.6); Potassium 3.9 mmol/L (3.5-5.1)
[2018-09-13 21:25] LABS: Bilirubin, Total 0.4 mg/dL (0.2-1.0); Total Protein 6.8 g/dL (6.4-8.2)
[2018-09-13] MEDS ORDERED: IODIXANOL 320MG/ML 100ML BTL IV ONE (21:30)
[2018-09-14 00:13] VITALS: BP 101/66
== END 2018-09-14 01:10 | disposition home or self-care (01) ==
LOC: EDBD 19:25 → ER 19:29
DX: K43.9 Ventral hernia without obstruction or gangrene (principal); R11.2 Nausea with vomiting, unspecified; I48.91 Unspecified atrial fibrillation; K21.9 Gastro-esophageal reflux disease without esophagitis; E78.5 Hyperlipidemia, unspecified; I10 Essential (primary) hypertension; I25.2 Old myocardial infarction; E07.9 Disorder of thyroid, unspecified; F17.210 Nicotine dependence, cigarettes, uncomplicated; F12.90 Cannabis use, unspecified, uncomplicated; Z88.5 Allergy status to narcotic agent; Z88.1 Allergy status to other antibiotic agents; Z79.82 Long term (current) use of aspirin; Z79.899 Other long term (current) drug therapy; Z90.49 Acquired absence of other specified parts of digestive tract; Z98.61 Coronary angioplasty status
CPT/HCPCS: 36415; 74177; 80053; 81001; 82150; 83690; 83735; 84484; 85025; 93005; 96361; 96374; 96375; 99284; J1885; J2405; J7040; Q9967

== ENCOUNTER 2018-09-30 11:07 | Emergency (ER) | payer MEDICARE, MEDICAID ==
[~2018-09-30] VITALS: Ht 157.5 cm; Wt 65.8 kg
[2018-09-30] MEDS ORDERED: ASPirin 81 mg TAB PO ONE (12:45)
[2018-09-30] MEDS ORDERED: ALBUTEROL SULF 2.5 MG/0.5ML(0.5%) NEB SOLN NEB ONE (12:45)
[2018-09-30] MEDS ORDERED: IPRATROPIUM BROM 0.5 MG/2.5ML INH SOL NEB ONE (12:45)
[2018-09-30 13:34] LABS: Basophils # (auto) 0.1 uL; Eosinophils # (auto) 0.1 uL; Lymphocytes # (auto) 1.4 uL; Lymphocytes % (auto) 21.3 % (10.0-50.0)
[2018-09-30 13:36] LABS: Eosinophils % (auto) 1.6 % (0.0-7.0); Hematocrit 39.4 % (36.0-46.0); Mean Corpuscular Hemoglobin 27.3 pg (28.0-32.0); Mean Corpuscular Volume 82.6 fL (80.0-100.0); Monocytes # (auto) 0.5 uL; Monocytes % (auto) 8.2 % (0.0-12.0); Neutrophils # (auto) 4.4 uL; Neutrophils % (auto) 67.9 % (37.0-80.0); Platelet Count (auto) 266 10^3/uL (140-450); Red Blood Cells 4.77 10^6/uL (4.0-5.20); White Blood Cell 6.5 10^3/uL (4.4-10.8)
[2018-09-30 13:51] LABS: Albumin 3.4 g/dL (3.4-5.0); Calcium 9.1 mg/dL (8.5-10.1); Potassium 3.7 mmol/L (3.5-5.1)
[2018-09-30 13:57] LABS: BUN/Creatinine Ratio 26.8; Bilirubin, Total 0.5 mg/dL (0.2-1.0); Total Protein 6.9 g/dL (6.4-8.2)
[2018-09-30 15:05] VITALS: BP 104/77
== END 2018-09-30 15:10 | disposition home or self-care (01) ==
LOC: EDBD 11:07 → ER 11:09
DX: J44.9 Chronic obstructive pulmonary disease, unspecified (principal); R42 Dizziness and giddiness; R51 Headache; I11.0 Hypertensive heart disease with heart failure; I50.9 Heart failure, unspecified; K21.9 Gastro-esophageal reflux disease without esophagitis; E78.5 Hyperlipidemia, unspecified; I25.2 Old myocardial infarction; E07.9 Disorder of thyroid, unspecified; I25.810 Atherosclerosis of coronary artery bypass graft(s) without angina pectoris; I48.91 Unspecified atrial fibrillation; F17.210 Nicotine dependence, cigarettes, uncomplicated; F12.10 Cannabis abuse, uncomplicated; Z79.82 Long term (current) use of aspirin
CPT/HCPCS: 36415; 70450; 71045; 80053; 83880; 84484; 85025; 93005; 94640; 94761; 99284; J7611; J7644

== ENCOUNTER 2019-02-12 21:35 | Emergency (ER) | payer OTHER, MEDICAID ==
[~2019-02-12] VITALS: Ht 157.5 cm; Wt 63.5 kg
[~2019-02-12 21:35] MED LIST changes: +APIX5TAB OR; +DIGO0.1262 PO; +DOCU100T15 PO; +FURO40TA4 PO; +SACU1TAB PO; +SPIR25TA8 PO
[2019-02-13] MEDS ORDERED: MORPHINE SULFATE 4 MG/ML SYR/VIAL IV ONE (00:15)
[2019-02-13] MEDS ORDERED: ONDANSETRON HCL 4 MG/2 ML VIAL IV ONE (00:15)
[2019-02-13 00:36] LABS: Basophils # (auto) 0.4 uL; Basophils % (auto) 3.9 % (0.0-2.0); Eosinophils # (auto) 0.3 uL; Hematocrit 38.7 % (36.0-46.0); Hemoglobin 12.9 g/dL (12.2-16.2); Lymphocytes % (auto) 9.6 % (10.0-50.0); Mean Corpuscular Hemoglobin 29.2 pg (28.0-32.0); Mean Corpuscular Hgb Conc. 33.3 g/dL (32.0-36.0); Mean Corpuscular Volume 87.6 fL (80.0-100.0); Monocytes # (auto) 0.5 uL; Monocytes % (auto) 5.3 % (0.0-12.0); Neutrophils # (auto) 7.8 uL; Neutrophils % (auto) 78.2 % (37.0-80.0); Platelet Count (auto) 345 10^3/uL (140-450); Red Blood Cells 4.42 10^6/uL (4.0-5.20); Red Cell Distribution Width 13.7 % (11.8-14.3); White Blood Cell 9.9 10^3/uL (4.4-10.8)
[2019-02-13 00:46] LABS: Potassium 4.1 mmol/L (3.5-5.1)
[2019-02-13 00:49] LABS: Albumin 3.9 g/dL (3.4-5.0); Calcium 8.6 mg/dL (8.5-10.1)
[2019-02-13 00:54] LABS: BUN/Creatinine Ratio 24.8; Bilirubin, Total 0.3 mg/dL (0.2-1.0); Total Protein 7.8 g/dL (6.4-8.2)
[2019-02-13 02:28] LABS: Urine Bacteria FEW /hpf (None Seen); Urine Blood Negative /uL (Negative); Urine Hyaline Cast FEW /lpf (0 - 2); Urine Specific Gravity 1.009 (1.001-1.035); Urine WBC 2 /hpf (0 - 5)
== END 2019-02-13 04:20 | disposition home or self-care (01) ==
LOC: EDBD 21:35 → EDUNIT# 21:35 → ER 21:50
DX: K58.9 Irritable bowel syndrome, unspecified (principal); I48.91 Unspecified atrial fibrillation; I25.10 Atherosclerotic heart disease of native coronary artery without angina pectoris; J44.9 Chronic obstructive pulmonary disease, unspecified; K21.9 Gastro-esophageal reflux disease without esophagitis; E78.5 Hyperlipidemia, unspecified; I10 Essential (primary) hypertension; I25.2 Old myocardial infarction; E07.9 Disorder of thyroid, unspecified; F12.90 Cannabis use, unspecified, uncomplicated; Z88.5 Allergy status to narcotic agent; Z88.1 Allergy status to other antibiotic agents; Z79.899 Other long term (current) drug therapy; Z79.82 Long term (current) use of aspirin; Z79.01 Long term (current) use of anticoagulants; Z90.49 Acquired absence of other specified parts of digestive tract; Z90.710 Acquired absence of both cervix and uterus; Z98.61 Coronary angioplasty status; Z87.891 Personal history of nicotine dependence
CPT/HCPCS: 36415; 74176; 80053; 81001; 83690; 85025; 93005; 96374; 96375; 99284; J2270; J2405

== ENCOUNTER 2019-05-13 15:50 | Emergency (ER) | payer MEDICARE, MEDICAID ==
[~2019-05-13] VITALS: Ht 157.5 cm; Wt 86.2 kg
[~2019-05-13 15:50] MED LIST changes: -AMLO10TA12 PO; +AMLO10TA13 PO
[2019-05-13] MEDS ORDERED: SODIUM CHLORIDE 0.9% 1,000 ML IVB ONE (16:01)
[2019-05-13] MEDS ORDERED: MORPHINE SULFATE 4 MG/ML SYR/VIAL IV ONE (16:15)
[2019-05-13] MEDS ORDERED: FAMOTIDINE (10MG/ML) 2ML VL IV ONE (16:15)
[2019-05-13] MEDS ORDERED: ONDANSETRON HCL 4 MG/2 ML VIAL IV ONE (16:15)
[2019-05-13 16:20] LABS: Basophils # (auto) 0.1 uL; Basophils % (auto) 0.9 % (0.0-2.0); Eosinophils # (auto) 0.1 uL; Eosinophils % (auto) 1.5 % (0.0-7.0); Hemoglobin 14.9 g/dL (12.2-16.2); Lymphocytes # (auto) 2.1 uL; Lymphocytes % (auto) 23.7 % (10.0-50.0); Mean Corpuscular Hemoglobin 29.4 pg (28.0-32.0); Mean Corpuscular Hgb Conc. 33.9 g/dL (32.0-36.0); Mean Corpuscular Volume 86.8 fL (80.0-100.0); Monocytes # (auto) 0.6 uL; Monocytes % (auto) 6.3 % (0.0-12.0); Neutrophils # (auto) 6.1 uL; Neutrophils % (auto) 67.6 % (37.0-80.0); Nucleated Red Blood Cells % 0.1 %; Platelet Count (auto) 287 10^3/uL (140-450); Red Blood Cells 5.07 10^6/uL (4.0-5.20); Red Cell Distribution Width 17.5 % (11.8-14.3)
[2019-05-13 16:33] LABS: Urine Bacteria NONE SEEN /hpf (None Seen); Urine Blood Negative /uL (Negative); Urine Hyaline Cast FEW /lpf (0 - 2); Urine Specific Gravity 1.005 (1.001-1.035); Urine WBC <1 /hpf (0 - 5)
[2019-05-13 16:38] LABS: Alanine Aminotransferase 18 U/L (13-56); Albumin 4.2 g/dL (3.4-5.0); Amylase 69 U/L (25-115); Anion Gap 10 (5-15); Aspartate Aminotransferase 14 U/L (15-37); Blood Urea Nitrogen 26 mg/dL (7-18); Calcium 9.5 mg/dL (8.5-10.1); Carbon Dioxide 22 mmol/L (21-32); Chloride 106 mmol/L (98-107); Glucose 139 mg/dL (74-106); Lipase 106 U/L (73-393); Potassium 3.7 mmol/L (3.5-5.1); Sodium 138 mmol/L (136-145)
[2019-05-13 16:42] LABS: Alkaline Phosphatase 109 U/L (45-117); BUN/Creatinine Ratio 28.3; Bilirubin, Total 0.8 mg/dL (0.2-1.0); GFR African American 78 mL/min; GFR Non-African American 65 mL/min; Total Protein 8.4 g/dL (6.4-8.2)
[2019-05-13 17:19] VITALS: BP 143/99
== END 2019-05-13 17:40 | disposition home or self-care (01) ==
LOC: EDBD 15:50 → ER 15:50
DX: R10.31 Right lower quadrant pain (principal); R11.2 Nausea with vomiting, unspecified; F12.188 Cannabis abuse with other cannabis-induced disorder; I11.0 Hypertensive heart disease with heart failure; I50.9 Heart failure, unspecified; J44.9 Chronic obstructive pulmonary disease, unspecified; K21.9 Gastro-esophageal reflux disease without esophagitis; I48.91 Unspecified atrial fibrillation; I25.2 Old myocardial infarction; Z98.61 Coronary angioplasty status; Z86.39 Personal history of other endocrine, nutritional and metabolic disease; Z87.891 Personal history of nicotine dependence; Z79.899 Other long term (current) drug therapy; Z79.82 Long term (current) use of aspirin
CPT/HCPCS: 36415; 76705; 80053; 81001; 82150; 83690; 84484; 85025; 93005; 94761; 96361; 96374; 96375; 99284; J2270; J2405; J3490; J7030

== ENCOUNTER 2019-07-31 20:08 | Emergency (ER) | payer OTHER, MEDICAID ==
[~2019-07-31] VITALS: Ht 157.5 cm; Wt 63.5 kg
[~2019-07-31 20:08] MED LIST changes: +DICY20TA66 PO; +FAMO-12 PO; +OMEP20TA PO
[2019-07-31 21:12] LABS: Basophils # (auto) 0.1 uL; Basophils % (auto) 0.8 % (0.0-2.0); Eosinophils # (auto) 0.1 uL; Eosinophils % (auto) 1.5 % (0.0-7.0); Hemoglobin 12.6 g/dL (12.2-16.2); Lymphocytes # (auto) 1.7 uL; Mean Corpuscular Hemoglobin 28.1 pg (28.0-32.0); Mean Corpuscular Hgb Conc. 33.3 g/dL (32.0-36.0); Mean Corpuscular Volume 84.5 fL (80.0-100.0); Monocytes # (auto) 0.7 uL; Monocytes % (auto) 7.1 % (0.0-12.0); Neutrophils # (auto) 7.1 uL; Neutrophils % (auto) 73.6 % (37.0-80.0); Nucleated Red Blood Cells % 0.1 %; Platelet Count (auto) 286 10^3/uL (140-450); Red Cell Distribution Width 14.2 % (11.8-14.3); White Blood Cell 9.7 10^3/uL (4.4-10.8)
[2019-07-31 21:30] LABS: Alanine Aminotransferase 16 U/L (13-56); Albumin 3.7 g/dL (3.4-5.0); Anion Gap 9 (5-15); Aspartate Aminotransferase 11 U/L (15-37); Blood Urea Nitrogen 25 mg/dL (7-18); Calcium 8.9 mg/dL (8.5-10.1); Carbon Dioxide 24 mmol/L (21-32); Chloride 102 mmol/L (98-107); GFR African American 74 mL/min; GFR Non-African American 61 mL/min; Glucose 95 mg/dL (74-106); Potassium 4.3 mmol/L (3.5-5.1); Sodium 135 mmol/L (136-145)
[2019-07-31] MEDS ORDERED: SODIUM CHLORIDE 0.9% 500 ML IV ONE (21:30)
[2019-07-31 21:35] LABS: Alkaline Phosphatase 98 U/L (45-117); Bilirubin, Total 0.5 mg/dL (0.2-1.0); Total Protein 7.3 g/dL (6.4-8.2)
[2019-07-31 21:51] LABS: INR 1.04 (0.9-1.15); Partial Thromboplastin Time 33.7 sec (23.64-32.05)
[2019-07-31 22:20] LABS: Alcohol, Urine < 3.0 mg/dL (0-5); Amphetamine Screen, Urine NEGATIVE (NEGATIVE); Barbiturate Scree,Urine NEGATIVE (NEGATIVE); Benzodiazephine Screen, Urine NEGATIVE (NEGATIVE); Cannabinoid Screen, Urine POSITIVE (NEGATIVE); Cocaine Screen, Urine NEGATIVE (NEGATIVE); Opiate Scree,Urine NEGATIVE (NEGATIVE); Phencyclidine Screen, Urine NEGATIVE (NEGATIVE)
[2019-07-31 22:21] LABS: Acetaminophen < 2.0 ug/mL (10-30)
[2019-07-31 22:24] LABS: Urine Bacteria NONE SEEN /hpf (None Seen); Urine Blood TRACE /uL (Negative); Urine Specific Gravity 1.008 (1.001-1.035); Urine WBC 68 /hpf (0 - 5)
[2019-08-01] VITALS: BP 114/62
[2019-08-01] MEDS ORDERED: PHENAZOPYRIDINE HCL 100 MG TAB PO ONE
== END 2019-08-01 01:09 | disposition home or self-care (01) ==
LOC: EDBD 20:08 → ER 20:12
DX: F41.9 Anxiety disorder, unspecified (principal); N39.0 Urinary tract infection, site not specified; I48.91 Unspecified atrial fibrillation; I25.10 Atherosclerotic heart disease of native coronary artery without angina pectoris; I11.0 Hypertensive heart disease with heart failure; I50.9 Heart failure, unspecified; I25.2 Old myocardial infarction; E78.5 Hyperlipidemia, unspecified; K21.9 Gastro-esophageal reflux disease without esophagitis; J44.9 Chronic obstructive pulmonary disease, unspecified; E07.9 Disorder of thyroid, unspecified; F12.90 Cannabis use, unspecified, uncomplicated; Z90.49 Acquired absence of other specified parts of digestive tract; Z90.710 Acquired absence of both cervix and uterus; Z98.61 Coronary angioplasty status; Z87.891 Personal history of nicotine dependence
CPT/HCPCS: 36415; 71045; 80053; 80307; 80329; 81001; 83605; 83880; 84484; 85025; 85379; 85610; 85730; 87086; 87088; 87186; 93005; 94761; 99284; J7040

== ENCOUNTER 2020-02-24 18:50 | Emergency (ER) | payer OTHER, MEDICAID ==
[~2020-02-24] VITALS: Ht 157.5 cm; Wt 59.0 kg
[~2020-02-24 18:50] MED LIST changes: +DIGO0.12 PO; -DIGO0.1262 PO; +FENO145T27 PO; -FENO1TAB42 PO; -METO25TA62 PO; +METO25TA93 PO
[2020-02-24 19:54] LABS: Basophils # (auto) 0.1 10 ^3/uL (0-0.2); Basophils % (auto) 0.7 % (0.0-2.0); Eosinophils # (auto) 0.2 10 ^3/uL (0-0.8); Eosinophils % (auto) 2.5 % (0.0-7.0); Hematocrit 39.5 % (36.0-46.0); Hemoglobin 12.9 g/dL (12.2-16.2); Lymphocytes # (auto) 1.7 10 ^3/uL (0.4-5.4); Lymphocytes % (auto) 20.8 % (10.0-50.0); Mean Corpuscular Hemoglobin 28.7 pg (28.0-32.0); Mean Corpuscular Hgb Conc. 32.8 g/dL (32.0-36.0); Mean Corpuscular Volume 87.7 fL (80.0-100.0); Monocytes # (auto) 0.5 10 ^3/uL (0-1.3); Monocytes % (auto) 5.8 % (0.0-12.0); Neutrophils # (auto) 5.7 10 ^3/uL (1.6-8.6); Neutrophils % (auto) 70.2 % (37.0-80.0); Nucleated Red Blood Cells % 0.1 %; Platelet Count (auto) 249 10^3/uL (140-450); Red Blood Cells 4.51 10^6/uL (4.0-5.20); Red Cell Distribution Width 14.7 % (11.8-14.3); White Blood Cell 8.1 10^3/uL (4.4-10.8)
[2020-02-24 20:09] LABS: Alanine Aminotransferase 16 U/L (13-56); Albumin 3.6 g/dL (3.4-5.0); Anion Gap 5 (5-15); Aspartate Aminotransferase 10 U/L (15-37); BUN/Creatinine Ratio 20.2; Blood Urea Nitrogen 20 mg/dL (7-18); Calcium 8.4 mg/dL (8.5-10.1); Carbon Dioxide 25 mmol/L (21-32); Chloride 104 mmol/L (98-107); GFR African American 72 mL/min; GFR Non-African American 59 mL/min; Glucose 101 mg/dL (74-106); INR 1.18 (0.9-1.15); Magnesium 2.1 mg/dL (1.6-2.6); Partial Thromboplastin Time 37.6 sec (23.64-32.05); Potassium 4.3 mmol/L (3.5-5.1); Sodium 134 mmol/L (136-145)
[2020-02-24 20:14] LABS: Alkaline Phosphatase 94 U/L (45-117); Bilirubin, Total 0.4 mg/dL (0.2-1.0); Total Protein 7.2 g/dL (6.4-8.2)
[2020-02-24] MEDS ORDERED: ONDANSETRON HCL 4 MG/2 ML VIAL IV ONE (20:45)
[2020-02-24] MEDS ORDERED: MORPHINE SULF INJ 2 MG/ML SYRINGE 1ML IV ONE (20:45)
[2020-02-24 22:27] VITALS: BP 106/78
[2020-02-24 22:59] LABS: Urine Bacteria FEW /hpf (None Seen); Urine Blood Negative /uL (Negative); Urine Hyaline Cast MANY /lpf (0 - 2); Urine Mucus FEW (None Seen); Urine Specific Gravity 1.008 (1.001-1.035); Urine WBC 1 /hpf (0 - 5)
== END 2020-02-24 23:20 | disposition home or self-care (01) ==
LOC: EDBD 18:50 → ER 18:50
DX: M16.12 Unilateral primary osteoarthritis, left hip (principal); G89.29 Other chronic pain; I48.91 Unspecified atrial fibrillation; I25.10 Atherosclerotic heart disease of native coronary artery without angina pectoris; I11.0 Hypertensive heart disease with heart failure; I50.9 Heart failure, unspecified; K21.9 Gastro-esophageal reflux disease without esophagitis; E78.5 Hyperlipidemia, unspecified; I25.2 Old myocardial infarction; J44.9 Chronic obstructive pulmonary disease, unspecified; E07.9 Disorder of thyroid, unspecified; F17.210 Nicotine dependence, cigarettes, uncomplicated; Z88.1 Allergy status to other antibiotic agents; Z88.5 Allergy status to narcotic agent
CPT/HCPCS: 36415; 71045; 80053; 81001; 83735; 83880; 84443; 84484; 85025; 85379; 85610; 85730; 93005; 93971; 96374; 96375; 99285; J2270; J2405

== ENCOUNTER 2020-02-28 15:14 | Inpatient (IN) | payer OTHER, MEDICAID ==
[~2020-02-28] VITALS: Ht 162.6 cm; Wt 66.2 kg
[2020-02-28] MEDS ORDERED: SODIUM CHLORIDE 0.9% 1,000 ML IV ONE (15:45)
[2020-02-28] MEDS ORDERED: ONDANSETRON HCL 4 MG/2 ML VIAL IV ONE (15:45)
[2020-02-28] MEDS ORDERED: MORPHINE SULF INJ 2 MG/ML SYRINGE 1ML ONE (16:05)
[2020-02-28 16:11] LABS: Alanine Aminotransferase 15 U/L (13-56); Albumin 3.8 g/dL (3.4-5.0); Amylase 64 U/L (25-115); Anion Gap 6 (5-15); Aspartate Aminotransferase 10 U/L (15-37); BUN/Creatinine Ratio 21.8; Blood Urea Nitrogen 17 mg/dL (7-18); Carbon Dioxide 24 mmol/L (21-32); Chloride 105 mmol/L (98-107); GFR African American 94 mL/min; GFR Non-African American 78 mL/min; Glucose 117 mg/dL (74-106); Lipase 53 U/L (73-393); Magnesium 2.1 mg/dL (1.6-2.6); Potassium 4.2 mmol/L (3.5-5.1); Sodium 135 mmol/L (136-145)
[2020-02-28 16:12] LABS: INR 1.07 (0.9-1.15); Partial Thromboplastin Time 34.9 sec (23.64-32.05)
[2020-02-28] MEDS ORDERED: MORPHINE SULF INJ 2 MG/ML SYRINGE 1ML IV ONE (16:15)
[2020-02-28] MEDS ORDERED: dilTIAZem 25 MG/5 ML VIAL IV ONE (16:15)
[2020-02-28 16:16] LABS: Alkaline Phosphatase 101 U/L (45-117); Bilirubin, Total 0.8 mg/dL (0.2-1.0); Total Protein 7.8 g/dL (6.4-8.2)
[2020-02-28 16:17] LABS: Basophils # (auto) 0.1 10 ^3/uL (0-0.2); Basophils % (auto) 0.6 % (0.0-2.0); Eosinophils # (auto) 0.1 10 ^3/uL (0-0.8); Eosinophils % (auto) 1.1 % (0.0-7.0); Hematocrit 42.9 % (36.0-46.0); Lymphocytes # (auto) 1.5 10 ^3/uL (0.4-5.4); Lymphocytes % (auto) 16.2 % (10.0-50.0); Mean Corpuscular Hemoglobin 28.6 pg (28.0-32.0); Mean Corpuscular Hgb Conc. 32.7 g/dL (32.0-36.0); Mean Corpuscular Volume 87.3 fL (80.0-100.0); Monocytes # (auto) 0.5 10 ^3/uL (0-1.3); Monocytes % (auto) 5.3 % (0.0-12.0); Neutrophils # (auto) 7.2 10 ^3/uL (1.6-8.6); Neutrophils % (auto) 76.8 % (37.0-80.0); Platelet Count (auto) 270 10^3/uL (140-450); Red Blood Cells 4.92 10^6/uL (4.0-5.20); Red Cell Distribution Width 14.6 % (11.8-14.3); White Blood Cell 9.4 10^3/uL (4.4-10.8)
[2020-02-28 17:57] LABS: Urine Blood Negative /uL (Negative); Urine Mucus FEW (None Seen); Urine Specific Gravity 1.015 (1.001-1.035); Urine WBC 1 /hpf (0 - 5)
[2020-02-28 17:59] LABS: Urine Bacteria FEW /hpf (None Seen)
[2020-02-28] MEDS ORDERED: SODIUM CHLORIDE 0.9% 2,000 ML IV ONE (18:15)
[2020-02-28] MEDS ORDERED: LABETALOL HCL 5 MG/ML 4ML SYRINGE IV PRN (18:30)
[2020-02-28] MEDS ORDERED: NITROGLYCERIN 0.4 MG SL TAB SL PRN (18:30)
[2020-02-28] MEDS: D5W/ SOD CHL 0.9%/KCL 20MEQ 1,000 ML IV SCH (19:26)
[2020-02-28] MEDS ORDERED: LIDOCAINE VISCOUS 2% 15ML UD MT ONE (19:30)
[2020-02-28] MEDS ORDERED: BENZOCAINE (DENTAL)20% 1 SPR SPRAY MT ONE (19:30)
[2020-02-28] MEDS: LORazepam 2MG/ML-1ML VIAL IV PRN (19:41)
[2020-02-28 21:40] VITALS: BP 102/70
[2020-02-28] MEDS: ONDANSETRON HCL 4 MG/2 ML VIAL IV PRN (22:30)
[2020-02-28] MEDS: MORPHINE SULF INJ 2 MG/ML SYRINGE 1ML IV PRN (22:31)
[2020-02-29] MEDS: D5W/ SOD CHL 0.9%/KCL 20MEQ 1,000 ML IV SCH ×3 (04:42→19:30)
[2020-02-29 05:00] VITALS: BP 97/55
[2020-02-29] MEDS: MORPHINE SULF INJ 2 MG/ML SYRINGE 1ML IV PRN ×3 (07:55→22:16)
[2020-02-29 08:00] VITALS: BP 103/72
[2020-02-29 09:11] VITALS: BP 103/72
[2020-02-29] MEDS: PANTOPRAZOLE 40 MG/10 ML VIAL INJ IV SCH (10:12)
[2020-02-29] MEDS ORDERED: cefTRIAXone 1GM/50ML D5W 50 ML IV ONE (11:00)
[2020-02-29 13:00] VITALS: BP 116/47
[2020-02-29] MEDS: metroNIDAZOLE 500MG/100ML 100 ML IV SCH ×2 (13:27→22:16)
[2020-02-29 16:56] VITALS: BP 102/74
[2020-02-29] MEDS ORDERED: DICY20TA66 PO (17:00)
[2020-02-29] MEDS ORDERED: DIGO0.12 PO (17:00)
[2020-02-29] MEDS ORDERED: CAR3125T OR (17:00)
[2020-02-29] MEDS ORDERED: LEVO100T8 PO (17:00)
[2020-02-29] MEDS: LORazepam 2MG/ML-1ML VIAL IV PRN (18:04)
[2020-02-29 21:24] VITALS: BP 100/67
[2020-03-01 05:49] VITALS: BP 106/82
[2020-03-01 06:05] LABS: Basophils # (auto) 0 10 ^3/uL (0-0.2); Basophils % (auto) 0.9 % (0.0-2.0); Eosinophils # (auto) 0.2 10 ^3/uL (0-0.8); Eosinophils % (auto) 4.1 % (0.0-7.0); Hematocrit 37.1 % (36.0-46.0); Hemoglobin 12.4 g/dL (12.2-16.2); Lymphocytes # (auto) 1.5 10 ^3/uL (0.4-5.4); Lymphocytes % (auto) 28.4 % (10.0-50.0); Mean Corpuscular Hemoglobin 29.4 pg (28.0-32.0); Mean Corpuscular Hgb Conc. 33.3 g/dL (32.0-36.0); Mean Corpuscular Volume 88.2 fL (80.0-100.0); Monocytes # (auto) 0.4 10 ^3/uL (0-1.3); Monocytes % (auto) 6.7 % (0.0-12.0); Neutrophils # (auto) 3.2 10 ^3/uL (1.6-8.6); Neutrophils % (auto) 59.9 % (37.0-80.0); Nucleated Red Blood Cells % 0.1 %; Platelet Count (auto) 216 10^3/uL (140-450); Red Cell Distribution Width 14.9 % (11.8-14.3); White Blood Cell 5.4 10^3/uL (4.4-10.8)
[2020-03-01] MEDS: D5W/ SOD CHL 0.9%/KCL 20MEQ 1,000 ML IV SCH ×3 (06:08→20:38)
[2020-03-01] MEDS: metroNIDAZOLE 500MG/100ML 100 ML IV SCH ×3 (06:09→20:36)
[2020-03-01 06:31] LABS: Calcium 8.4 mg/dL (8.5-10.1)
[2020-03-01 09:00] VITALS: BP 90/46
[2020-03-01] MEDS: cefTRIAXone 1GM/50ML D5W 50 ML IV SCH (09:36)
[2020-03-01] MEDS: PANTOPRAZOLE 40 MG/10 ML VIAL INJ IV SCH (09:36)
[2020-03-01] MEDS: MORPHINE SULF INJ 2 MG/ML SYRINGE 1ML IV PRN ×2 (09:43→20:37)
[2020-03-01] MEDS: LORazepam 2MG/ML-1ML VIAL IV PRN (12:09)
[2020-03-01 13:00] VITALS: BP 101/75
[2020-03-01] MEDS ORDERED: GASTROGRAFIN 120 ML SOL ONE (14:34)
[2020-03-01 17:23] VITALS: BP 109/79
[2020-03-01] MEDS: ONDANSETRON HCL 4 MG/2 ML VIAL IV PRN (20:46)
[2020-03-01 22:00] VITALS: BP 101/66
[2020-03-02] MEDS: LORazepam 2MG/ML-1ML VIAL IV PRN ×2 (00:12→15:57)
[2020-03-02] MEDS: D5W/ SOD CHL 0.9%/KCL 20MEQ 1,000 ML IV SCH ×3 (00:55→20:18)
[2020-03-02 05:00] VITALS: BP 96/69
[2020-03-02] MEDS: metroNIDAZOLE 500MG/100ML 100 ML IV SCH ×3 (05:22→22:00)
[2020-03-02 05:29] LABS: Basophils # (auto) 0 10 ^3/uL (0-0.2); Basophils % (auto) 0.5 % (0.0-2.0); Eosinophils # (auto) 0.2 10 ^3/uL (0-0.8); Hematocrit 36.4 % (36.0-46.0); Lymphocytes # (auto) 1.3 10 ^3/uL (0.4-5.4); Lymphocytes % (auto) 23.6 % (10.0-50.0); Mean Corpuscular Hgb Conc. 32.9 g/dL (32.0-36.0); Mean Corpuscular Volume 88.2 fL (80.0-100.0); Monocytes # (auto) 0.5 10 ^3/uL (0-1.3); Monocytes % (auto) 8.4 % (0.0-12.0); Neutrophils # (auto) 3.6 10 ^3/uL (1.6-8.6); Neutrophils % (auto) 63.5 % (37.0-80.0); Platelet Count (auto) 208 10^3/uL (140-450); Red Blood Cells 4.13 10^6/uL (4.0-5.20); Red Cell Distribution Width 14.8 % (11.8-14.3); White Blood Cell 5.7 10^3/uL (4.4-10.8)
[2020-03-02 05:49] LABS: Calcium 8.2 mg/dL (8.5-10.1); Potassium 3.7 mmol/L (3.5-5.1)
[2020-03-02 05:50] LABS: BUN/Creatinine Ratio 10.6
[2020-03-02] MEDS: cefTRIAXone 1GM/50ML D5W 50 ML IV SCH (07:54)
[2020-03-02] MEDS: MORPHINE SULF INJ 2 MG/ML SYRINGE 1ML IV PRN ×3 (07:54→20:25)
[2020-03-02 09:10] VITALS: BP 106/71
[2020-03-02] MEDS: PANTOPRAZOLE 40 MG/10 ML VIAL INJ IV SCH (09:39)
[2020-03-02 13:00] VITALS: BP 138/74
[2020-03-02 16:33] VITALS: BP 105/84
[2020-03-02] MEDS: ONDANSETRON HCL 4 MG/2 ML VIAL IV PRN (20:23)
[2020-03-02 22:22] VITALS: BP 106/71
[2020-03-03 05:00] VITALS: BP 122/67
[2020-03-03] MEDS: D5W/ SOD CHL 0.9%/KCL 20MEQ 1,000 ML IV SCH ×3 (05:31→22:39)
[2020-03-03] MEDS: metroNIDAZOLE 500MG/100ML 100 ML IV SCH ×3 (05:31→22:39)
[2020-03-03] MEDS: ONDANSETRON HCL 4 MG/2 ML VIAL IV PRN ×5 (05:54→20:30)
[2020-03-03] MEDS: MORPHINE SULF INJ 2 MG/ML SYRINGE 1ML IV PRN ×5 (06:03→20:34)
[2020-03-03 06:53] LABS: Basophils # (auto) 0 10 ^3/uL (0-0.2); Basophils % (auto) 0.8 % (0.0-2.0); Eosinophils # (auto) 0.3 10 ^3/uL (0-0.8); Eosinophils % (auto) 4.9 % (0.0-7.0); Hematocrit 38.6 % (36.0-46.0); Hemoglobin 12.6 g/dL (12.2-16.2); Lymphocytes # (auto) 1.4 10 ^3/uL (0.4-5.4); Lymphocytes % (auto) 26.2 % (10.0-50.0); Mean Corpuscular Hgb Conc. 32.7 g/dL (32.0-36.0); Mean Corpuscular Volume 88.5 fL (80.0-100.0); Monocytes # (auto) 0.4 10 ^3/uL (0-1.3); Monocytes % (auto) 7.8 % (0.0-12.0); Neutrophils # (auto) 3.2 10 ^3/uL (1.6-8.6); Neutrophils % (auto) 60.3 % (37.0-80.0); Platelet Count (auto) 216 10^3/uL (140-450); Red Blood Cells 4.36 10^6/uL (4.0-5.20); Red Cell Distribution Width 14.9 % (11.8-14.3); White Blood Cell 5.2 10^3/uL (4.4-10.8)
[2020-03-03 07:12] LABS: BUN/Creatinine Ratio 6.6; Calcium 8.3 mg/dL (8.5-10.1); Potassium 3.9 mmol/L (3.5-5.1)
[2020-03-03 08:55] VITALS: BP 103/71
[2020-03-03] MEDS: cefTRIAXone 1GM/50ML D5W 50 ML IV SCH (09:50)
[2020-03-03] MEDS: PANTOPRAZOLE 40 MG/10 ML VIAL INJ IV SCH (09:50)
[2020-03-03] MEDS: LORazepam 2MG/ML-1ML VIAL IV PRN (10:06)
[2020-03-03 11:43] LABS: INR 1.2 (0.9-1.15)
[2020-03-03 12:03] VITALS: BP 107/65
[2020-03-03] MEDS ORDERED: ceFAZolin 1GM VL ONE (14:37)
[2020-03-03] MEDS ORDERED: SUCCINYLCHOLINE CHLORIDE 20 MG/ML 10ML VIAL IV ONE (14:50)
[2020-03-03] MEDS ORDERED: LIDOCAINE 1% (LOCAL ANESTH.) PF 5ml SDV ONE (14:50)
[2020-03-03] MEDS ORDERED: MIDAZOLAM HCL 1MG/1ML-2 ML VIAL ONE (14:53)
[2020-03-03] MEDS ORDERED: ROCURONIUM 10MG/ML 10ML VIAL IV ONE (14:55)
[2020-03-03] MEDS ORDERED: ETOMIDATE (2MG/ML) 20ML VIAL IV ONE (14:57)
[2020-03-03] MEDS ORDERED: ESMOLOL HCL 10 ML IV ONE (15:02)
[2020-03-03] MEDS ORDERED: fentaNYL CITRATE 100 MCG/2 ML VL ONE (15:13)
[2020-03-03] MEDS ORDERED: hydrALAZINE HCL 20 MG/ML VL ONE (15:23)
[2020-03-03] MEDS ORDERED: STERILE WATER 10 ML ONE (15:39)
[2020-03-03] MEDS ORDERED: PHENYLEPHRINE HCL 10 MG/ML VL ONE (15:40)
[2020-03-03] MEDS ORDERED: hydrALAZINE HCL 20 MG/ML VL IV PRN (15:45)
[2020-03-03] MEDS ORDERED: NALOXONE HCL 0.4 MG/ML VIAL IV PRN (15:45)
[2020-03-03] MEDS ORDERED: HYDROmorphone HCL 2 MG/ML VL IV PRN (15:45)
[2020-03-03] MEDS ORDERED: ONDANSETRON HCL 4 MG/2 ML VIAL IV PRN (15:45)
[2020-03-03] MEDS ORDERED: LABETALOL HCL 5 MG/ML ML 20ML VIAL IV ONE (16:02)
[2020-03-03] MEDS ORDERED: NEOSTIGMINE 1 MG/ML INJ (10mg/10ML VIAL) ONE (16:04)
[2020-03-03] MEDS ORDERED: GLYCOPYRROLATE 0.2 MG/ML 1ML VIAL ONE (16:04)
[2020-03-03] MEDS ORDERED: BUPIVACAINE HCL 50 ML ONE (16:08)
[2020-03-03] MEDS: HYDROmorphone HCL 2 MG/ML VL IV PRN ×3 (16:35→17:20)
[2020-03-03 18:42] VITALS: BP 117/77
[2020-03-03 22:00] VITALS: BP 136/74
[2020-03-03 22:19] VITALS: BP 117/77
[2020-03-04] MEDS: ONDANSETRON HCL 4 MG/2 ML VIAL IV PRN ×3 (00:49→20:33)
[2020-03-04] MEDS: MORPHINE SULF INJ 2 MG/ML SYRINGE 1ML IV PRN ×3 (00:59→07:00)
[2020-03-04] MEDS: LORazepam 2MG/ML-1ML VIAL IV PRN (01:03)
[2020-03-04 05:30] VITALS: BP 131/86
[2020-03-04] MEDS: D5W/ SOD CHL 0.9%/KCL 20MEQ 1,000 ML IV SCH ×2 (05:34→10:45)
[2020-03-04] MEDS: metroNIDAZOLE 500MG/100ML 100 ML IV SCH ×3 (05:47→21:44)
[2020-03-04 06:03] LABS: Basophils # (auto) 0 10 ^3/uL (0-0.2); Basophils % (auto) 0.4 % (0.0-2.0); Eosinophils # (auto) 0.1 10 ^3/uL (0-0.8); Eosinophils % (auto) 0.6 % (0.0-7.0); Hematocrit 39.2 % (36.0-46.0); Lymphocytes # (auto) 0.7 10 ^3/uL (0.4-5.4); Lymphocytes % (auto) 7.7 % (10.0-50.0); Mean Corpuscular Hemoglobin 29.2 pg (28.0-32.0); Mean Corpuscular Hgb Conc. 33.3 g/dL (32.0-36.0); Mean Corpuscular Volume 87.9 fL (80.0-100.0); Monocytes # (auto) 0.5 10 ^3/uL (0-1.3); Monocytes % (auto) 5.4 % (0.0-12.0); Neutrophils % (auto) 85.9 % (37.0-80.0); Platelet Count (auto) 212 10^3/uL (140-450); Red Blood Cells 4.46 10^6/uL (4.0-5.20); Red Cell Distribution Width 14.5 % (11.8-14.3); White Blood Cell 9.3 10^3/uL (4.4-10.8)
[2020-03-04 06:20] LABS: Potassium 3.6 mmol/L (3.5-5.1)
[2020-03-04 06:23] LABS: BUN/Creatinine Ratio 5.2
[2020-03-04 08:00] VITALS: BP 116/88
[2020-03-04] MEDS: cefTRIAXone 1GM/50ML D5W 50 ML IV SCH (09:22)
[2020-03-04] MEDS: PANTOPRAZOLE 40 MG/10 ML VIAL INJ IV SCH (09:22)
[2020-03-04] MEDS ORDERED: LABETALOL HCL 5 MG/ML 4ML SYRINGE IV PRN (10:45)
[2020-03-04] MEDS: HYDROmorphone HCL 2 MG/ML VL IV PRN ×3 (11:02→20:26)
[2020-03-04 12:00] VITALS: BP 107/70
[2020-03-04 17:00] VITALS: BP 100/80
[2020-03-04 20:00] VITALS: BP 129/87
[2020-03-04 21:36] VITALS: BP 129/87
[2020-03-05] MEDS: D5W/ SOD CHL 0.9%/KCL 20MEQ 1,000 ML IV SCH ×2 (00:05→13:25)
[2020-03-05] MEDS: HYDROmorphone HCL 2 MG/ML VL IV PRN ×5 (01:17→18:54)
[2020-03-05 04:45] VITALS: BP 115/65
[2020-03-05] MEDS: metroNIDAZOLE 500MG/100ML 100 ML IV SCH ×3 (05:36→21:37)
[2020-03-05] MEDS: ONDANSETRON HCL 4 MG/2 ML VIAL IV PRN ×2 (05:37→14:43)
[2020-03-05 05:49] LABS: Basophils # (auto) 0 10 ^3/uL (0-0.2); Basophils % (auto) 0.2 % (0.0-2.0); Eosinophils # (auto) 0.5 10 ^3/uL (0-0.8); Eosinophils % (auto) 7.4 % (0.0-7.0); Hematocrit 37.3 % (36.0-46.0); Hemoglobin 12.3 g/dL (12.2-16.2); Lymphocytes % (auto) 14.2 % (10.0-50.0); Mean Corpuscular Hgb Conc. 32.9 g/dL (32.0-36.0); Mean Corpuscular Volume 88.1 fL (80.0-100.0); Monocytes # (auto) 0.6 10 ^3/uL (0-1.3); Monocytes % (auto) 7.8 % (0.0-12.0); Neutrophils # (auto) 5.2 10 ^3/uL (1.6-8.6); Neutrophils % (auto) 70.4 % (37.0-80.0); Platelet Count (auto) 207 10^3/uL (140-450); Red Blood Cells 4.23 10^6/uL (4.0-5.20); Red Cell Distribution Width 14.5 % (11.8-14.3); White Blood Cell 7.4 10^3/uL (4.4-10.8)
[2020-03-05 06:09] LABS: Potassium 3.7 mmol/L (3.5-5.1)
[2020-03-05 06:15] LABS: BUN/Creatinine Ratio 8.5; Calcium 7.9 mg/dL (8.5-10.1)
[2020-03-05 08:23] VITALS: BP 110/72
[2020-03-05] MEDS: PANTOPRAZOLE 40 MG/10 ML VIAL INJ IV SCH (08:57)
[2020-03-05] MEDS: cefTRIAXone 1GM/50ML D5W 50 ML IV SCH (08:57)
[2020-03-05] MEDS ORDERED: ENOXAPARIN SOD 30 MG/0.3 ML SYRINGE SC ONE (12:15)
[2020-03-05 12:41] VITALS: BP 107/56
[2020-03-05 16:37] VITALS: BP 110/88
[2020-03-05 20:00] VITALS: BP 124/93
[2020-03-05 22:00] VITALS: BP 124/93
[2020-03-06] MEDS: D5W/ SOD CHL 0.9%/KCL 20MEQ 1,000 ML IV SCH ×2 (03:06→08:27)
[2020-03-06] MEDS: HYDROmorphone HCL 2 MG/ML VL IV PRN ×5 (04:15→22:16)
[2020-03-06] MEDS: metroNIDAZOLE 500MG/100ML 100 ML IV SCH (05:31)
[2020-03-06 06:00] VITALS: BP 121/75
[2020-03-06] MEDS: PANTOPRAZOLE 40 MG/10 ML VIAL INJ IV SCH (08:25)
[2020-03-06] MEDS: cefTRIAXone 1GM/50ML D5W 50 ML IV SCH (08:26)
[2020-03-06] MEDS: ONDANSETRON HCL 4 MG/2 ML VIAL IV PRN ×2 (08:40→22:17)
[2020-03-06 09:00] VITALS: BP 116/92
[2020-03-06] MEDS ORDERED: ENOXAPARIN SOD 30 MG/0.3 ML SYRINGE SC SCH (10:00)
[2020-03-06 14:00] VITALS: BP 120/88
[2020-03-06 17:00] VITALS: BP 128/82
[2020-03-06 20:00] VITALS: BP 118/79
[2020-03-06 22:00] VITALS: BP 118/79
[2020-03-07] MEDS: D5W/ SOD CHL 0.9%/KCL 20MEQ 1,000 ML IV SCH ×2 (04:58→17:07)
[2020-03-07 05:00] VITALS: BP 128/94
[2020-03-07 09:00] VITALS: BP 128/92
[2020-03-07] MEDS ORDERED: methIMAzole 5 MG TAB PO ONE (09:45)
[2020-03-07] MEDS ORDERED: SOTALOL HCL 80 MG TAB PO ONE (09:45)
[2020-03-07] MEDS ORDERED: METOPROLOL TARTRATE 25 MG TAB PO ONE (09:45)
[2020-03-07] MEDS ORDERED: METOPROLOL TARTRATE 25 MG TAB PO SCH (10:00)
[2020-03-07] MEDS ORDERED: SOTALOL HCL 80 MG TAB PO SCH (10:00)
[2020-03-07] MEDS ORDERED: AMIODARONE 450mg/250ml AE 250 ML IV SCH ×2 (10:11→16:11)
[2020-03-07] MEDS ORDERED: AMIODARONE HCL 150 MG in D5W 5% 100 ML IV ONE (10:15)
[2020-03-07 10:33] LABS: Basophils # (auto) 0 10 ^3/uL (0-0.2); Basophils % (auto) 0.6 % (0.0-2.0); Eosinophils # (auto) 0.3 10 ^3/uL (0-0.8); Eosinophils % (auto) 4.2 % (0.0-7.0); Hematocrit 39.6 % (36.0-46.0); Hemoglobin 12.9 g/dL (12.2-16.2); Lymphocytes # (auto) 0.9 10 ^3/uL (0.4-5.4); Lymphocytes % (auto) 12.5 % (10.0-50.0); Mean Corpuscular Hemoglobin 28.5 pg (28.0-32.0); Mean Corpuscular Hgb Conc. 32.5 g/dL (32.0-36.0); Mean Corpuscular Volume 87.7 fL (80.0-100.0); Monocytes # (auto) 0.4 10 ^3/uL (0-1.3); Monocytes % (auto) 5.5 % (0.0-12.0); Neutrophils # (auto) 5.4 10 ^3/uL (1.6-8.6); Neutrophils % (auto) 77.2 % (37.0-80.0); Platelet Count (auto) 252 10^3/uL (140-450); Red Blood Cells 4.52 10^6/uL (4.0-5.20); Red Cell Distribution Width 15.1 % (11.8-14.3); White Blood Cell 6.9 10^3/uL (4.4-10.8)
[2020-03-07 10:53] LABS: Calcium 8.3 mg/dL (8.5-10.1); Magnesium 1.7 mg/dL (1.6-2.6); Potassium 3.6 mmol/L (3.5-5.1)
[2020-03-07] MEDS ORDERED: AMIODARONE HCL 200 MG TAB PO ONE (11:15)
[2020-03-07] MEDS: HYDROmorphone HCL 2 MG/ML VL IV PRN ×3 (11:26→20:10)
[2020-03-07] MEDS: cefTRIAXone 1GM/50ML D5W 50 ML IV SCH (11:40)
[2020-03-07] MEDS: PANTOPRAZOLE 40 MG/10 ML VIAL INJ IV SCH (11:41)
[2020-03-07] MEDS: ENOXAPARIN SOD 60 MG/0.6 ML SYRINGE SC SCH ×2 (11:41→22:17)
[2020-03-07 13:00] VITALS: BP 116/87
[2020-03-07] MEDS ORDERED: methIMAzole 5 MG TAB PO SCH (14:00)
[2020-03-07 17:00] VITALS: BP 112/78
[2020-03-07] MEDS: ONDANSETRON HCL 4 MG/2 ML VIAL IV PRN (20:09)
[2020-03-07 22:00] VITALS: BP 112/77
[2020-03-07] MEDS: AMIODARONE HCL 200 MG TAB PO SCH (22:17)
[2020-03-07] MEDS: SOTALOL HCL 80 MG TAB PO SCH (22:18)
[2020-03-08 05:00] VITALS: BP 107/85
[2020-03-08 08:00] VITALS: BP 110/72
[2020-03-08] MEDS: D5W/ SOD CHL 0.9%/KCL 20MEQ 1,000 ML IV SCH (08:27)
[2020-03-08] MEDS: HYDROmorphone HCL 2 MG/ML VL IV PRN ×4 (09:12→23:30)
[2020-03-08 09:21] VITALS: BP 110/72
[2020-03-08] MEDS: SOTALOL HCL 80 MG TAB PO SCH ×2 (09:49→21:25)
[2020-03-08] MEDS: AMIODARONE HCL 200 MG TAB PO SCH ×2 (09:49→21:26)
[2020-03-08] MEDS: ENOXAPARIN SOD 60 MG/0.6 ML SYRINGE SC SCH (09:50)
[2020-03-08] MEDS ORDERED: traMADol HCL 50 MG TAB PO PRN (11:00)
[2020-03-08] MEDS: cefTRIAXone 1GM/50ML D5W 50 ML IV SCH (11:26)
[2020-03-08 13:00] VITALS: BP 120/75
[2020-03-08 16:55] VITALS: BP 132/67
[2020-03-08] MEDS: APIXABAN 5 MG TAB PO SCH (21:26)
[2020-03-08 22:00] VITALS: BP 123/60
[2020-03-09 05:00] VITALS: BP 115/83
[2020-03-09 06:08] LABS: Basophils # (auto) 0 10 ^3/uL (0-0.2); Basophils % (auto) 0.6 % (0.0-2.0); Eosinophils # (auto) 0.5 10 ^3/uL (0-0.8); Eosinophils % (auto) 9.3 % (0.0-7.0); Hematocrit 36.1 % (36.0-46.0); Lymphocytes # (auto) 1.4 10 ^3/uL (0.4-5.4); Lymphocytes % (auto) 26.5 % (10.0-50.0); Mean Corpuscular Hgb Conc. 33.2 g/dL (32.0-36.0); Mean Corpuscular Volume 87.3 fL (80.0-100.0); Monocytes # (auto) 0.5 10 ^3/uL (0-1.3); Monocytes % (auto) 8.8 % (0.0-12.0); Neutrophils # (auto) 2.9 10 ^3/uL (1.6-8.6); Neutrophils % (auto) 54.8 % (37.0-80.0); Platelet Count (auto) 235 10^3/uL (140-450); Red Blood Cells 4.14 10^6/uL (4.0-5.20); Red Cell Distribution Width 14.6 % (11.8-14.3); White Blood Cell 5.3 10^3/uL (4.4-10.8)
[2020-03-09 06:40] LABS: Potassium 3.2 mmol/L (3.5-5.1)
[2020-03-09 06:57] LABS: BUN/Creatinine Ratio 8.9; Calcium 8.2 mg/dL (8.5-10.1)
[2020-03-09 08:00] VITALS: BP 107/76
[2020-03-09 09:00] VITALS: BP 107/76
[2020-03-09] MEDS: cefTRIAXone 1GM/50ML D5W 50 ML IV SCH (09:27)
[2020-03-09] MEDS: SOTALOL HCL 80 MG TAB PO SCH ×2 (09:28→21:10)
[2020-03-09] MEDS: AMIODARONE HCL 200 MG TAB PO SCH ×2 (09:31→21:09)
[2020-03-09] MEDS: APIXABAN 5 MG TAB PO SCH ×2 (09:31→21:07)
[2020-03-09] MEDS: PANTOPRAZOLE 40 MG TAB PO SCH (09:32)
[2020-03-09] MEDS ORDERED: POTASSIUM CHL 20 Meq TABLET PO ONE (11:00)
[2020-03-09] MEDS ORDERED: LORazepam 0.5 MG TAB PO PRN (11:00)
[2020-03-09 13:00] VITALS: BP 100/70
[2020-03-09 17:00] VITALS: BP 123/87
[2020-03-09 22:00] VITALS: BP 116/82
[2020-03-10 05:00] VITALS: BP 106/70
[2020-03-10] MEDS ORDERED: LEVOTHYROXINE SODIUM 25 MCG TAB PO SCH (07:00)
[2020-03-10] MEDS: cefTRIAXone 1GM/50ML D5W 50 ML IV SCH (08:23)
[2020-03-10 09:00] VITALS: BP 110/80
[2020-03-10] MEDS: PANTOPRAZOLE 40 MG TAB PO SCH (09:51)
[2020-03-10] MEDS: APIXABAN 5 MG TAB PO SCH (09:51)
[2020-03-10] MEDS: SOTALOL HCL 80 MG TAB PO SCH (09:52)
[2020-03-10] MEDS: AMIODARONE HCL 200 MG TAB PO SCH (09:52)
[2020-03-10 11:15] VITALS: BP 110/80
== END 2020-03-10 12:15 | disposition home or self-care (01) | DRG 354 ==
LOC: EDBD 15:14 → ER 15:14 → TELE 15:15 → TELE-CENTR 21:40
PROVIDERS: ADMIT Nurse Practitioner Acute Care; ATTEND Internal Medicine
PROC: 3E0G76Z Introduction of Nutritional Substance into Upper GI, Via Natural or Artificial Opening (ICD-10-PCS; 2020-02-29)
PROC: 0DH67UZ Insertion of Feeding Device into Stomach, Via Natural or Artificial Opening (ICD-10-PCS; 2020-02-29)
PROC: 0WUF4JZ Supplement Abdominal Wall with Synthetic Substitute, Percutaneous Endoscopic Approach (ICD-10-PCS; principal; 2020-03-03 14:52)
DX: K43.6 Other and unspecified ventral hernia with obstruction, without gangrene (principal); E87.1 Hypo-osmolality and hyponatremia; I50.42 Chronic combined systolic (congestive) and diastolic (congestive) heart failure; E03.9 Hypothyroidism, unspecified; E78.5 Hyperlipidemia, unspecified; I25.10 Atherosclerotic heart disease of native coronary artery without angina pectoris; I48.0 Paroxysmal atrial fibrillation; K43.2 Incisional hernia without obstruction or gangrene; I11.0 Hypertensive heart disease with heart failure; E87.6 Hypokalemia; J44.9 Chronic obstructive pulmonary disease, unspecified; K21.9 Gastro-esophageal reflux disease without esophagitis; Z79.01 Long term (current) use of anticoagulants; Z79.02 Long term (current) use of antithrombotics/antiplatelets; Z79.890 Hormone replacement therapy; Z79.899 Other long term (current) drug therapy; Z95.5 Presence of coronary angioplasty implant and graft; Z88.1 Allergy status to other antibiotic agents; Z88.5 Allergy status to narcotic agent; Z79.82 Long term (current) use of aspirin; Z90.49 Acquired absence of other specified parts of digestive tract; Z90.710 Acquired absence of both cervix and uterus; Z82.49 Family history of ischemic heart disease and other diseases of the circulatory system; Z83.3 Family history of diabetes mellitus; Z87.891 Personal history of nicotine dependence; I48.91 Unspecified atrial fibrillation; K57.30 Diverticulosis of large intestine without perforation or abscess without bleeding
CPT/HCPCS: 36415; 71045; 74176; 74250; 80048; 80053; 80162; 81001; 82150; 83690; 83735; 84443; 84484; 85025; 85610; 85730; 86850; 86900; 86901; 87040; 87086; 93005; 96361; 96374; 96375; 97116; 97530; C9113; G0378; J0330; J0690; J0696; J2250; J2405; J3490; J7060

== ENCOUNTER 2020-09-05 21:02 | Emergency (ER) | payer OTHER, MEDICAID ==
[~2020-09-05] VITALS: Ht 157.5 cm; Wt 59.0 kg
[~2020-09-05 21:02] MED LIST changes: -ASPI-325 PO; +CAR3125T OR; -CARV12.544 PO; +DICY20TA PO; -DICY20TA66 PO; -FENO145T27 PO; +LEVO100T8 PO; -LEVO200T7 PO; -METO25TA93 PO; -TIOT1AER IN
[2020-09-05 22:48] LABS: Basophils # (auto) 0 10 ^3/uL (0-0.2); Basophils % (auto) 0.5 % (0.0-2.0); Eosinophils # (auto) 0.2 10 ^3/uL (0-0.8); Eosinophils % (auto) 2.5 % (0.0-7.0); Hematocrit 49.2 % (36.0-46.0); Hemoglobin 15.8 g/dL (12.2-16.2); Lymphocytes # (auto) 1.4 10 ^3/uL (0.4-5.4); Lymphocytes % (auto) 18.3 % (10.0-50.0); Mean Corpuscular Hemoglobin 29.7 pg (28.0-32.0); Mean Corpuscular Hgb Conc. 32.2 g/dL (32.0-36.0); Mean Corpuscular Volume 92.3 fL (80.0-100.0); Monocytes # (auto) 0.5 10 ^3/uL (0-1.3); Monocytes % (auto) 6.4 % (0.0-12.0); Neutrophils # (auto) 5.4 10 ^3/uL (1.6-8.6); Neutrophils % (auto) 72.3 % (37.0-80.0); Platelet Count (auto) 285 10^3/uL (140-450); Red Blood Cells 5.33 10^6/uL (4.0-5.20); Red Cell Distribution Width 13.9 % (11.8-14.3); White Blood Cell 7.5 10^3/uL (4.4-10.8)
[2020-09-05 23:17] LABS: Albumin 4.1 g/dL (3.4-5.0); BUN/Creatinine Ratio 17.6; Calcium 8.9 mg/dL (8.5-10.1); Potassium 4.4 mmol/L (3.5-5.1)
[2020-09-05 23:25] LABS: Bilirubin, Total 0.6 mg/dL (0.2-1.0); Total Protein 7.9 g/dL (6.4-8.2)
[2020-09-06] MEDS ORDERED: SODIUM CHLORIDE 0.9% 500 ML IV ONE (00:15)
[2020-09-06] MEDS ORDERED: MORPHINE SULFATE 4 MG/ML SYR/VIAL IV ONE (02:30)
[2020-09-06] MEDS ORDERED: ONDANSETRON HCL 4 MG/2 ML VIAL IV ONE (02:30)
[2020-09-06 04:51] LABS: Urine Bacteria FEW /hpf (None Seen); Urine Blood Negative /uL (Negative); Urine Hyaline Cast FEW /lpf (0 - 2); Urine Specific Gravity 1.007 (1.001-1.035); Urine WBC 1 /hpf (0 - 5)
[2020-09-06 05:11] VITALS: BP 89/63
== END 2020-09-06 05:55 | disposition home or self-care (01) ==
LOC: EDBD 21:02 → ER 21:05
DX: K59.00 Constipation, unspecified (principal); K21.9 Gastro-esophageal reflux disease without esophagitis; E78.5 Hyperlipidemia, unspecified; I10 Essential (primary) hypertension; J44.9 Chronic obstructive pulmonary disease, unspecified; Z90.49 Acquired absence of other specified parts of digestive tract; Z90.710 Acquired absence of both cervix and uterus; Z79.899 Other long term (current) drug therapy; Z87.891 Personal history of nicotine dependence
CPT/HCPCS: 36415; 74176; 80053; 81001; 82150; 83690; 83735; 85025; 93005; 96361; 96374; 96375; 99285; J2270; J2405; J7030; 96372

== ENCOUNTER 2021-04-28 22:10 | Emergency (ER) | payer OTHER, MEDICAID ==
[~2021-04-28 22:10] MED LIST changes: +AMLO-496 PO; -AMLO10TA13 PO; +ATOR-47 PO; -ATOR1TAB PO; -CLOP75TA41 PO; +CLOP75TA70 PO
== END 2021-04-28 22:39 | disposition left against medical advice (07) ==
LOC: EDSEX 22:10 → EDBD 22:10 → ER 22:10
DX: R07.9 Chest pain, unspecified (principal); Z53.21 Procedure and treatment not carried out due to patient leaving prior to being seen by health care provider

== ENCOUNTER 2021-10-17 22:20 | Inpatient (IN) | payer OTHER, MEDICAID ==
[~2021-10-17] VITALS: Ht 157.5 cm; Wt 65.7 kg
[2021-10-18] MEDS ORDERED: IPRATROPIUM BROM 0.5 MG/2.5ML INH SOL NEB ONE (00:15)
[2021-10-18 01:14] LABS: Basophils # (auto) 0.1 10 ^3/uL (0-0.2); Basophils % (auto) 1.1 % (0.0-2.0); Eosinophils # (auto) 0.2 10 ^3/uL (0-0.8); Eosinophils % (auto) 3.1 % (0.0-7.0); Hematocrit 39.9 % (36.0-46.0); Hemoglobin 13.1 g/dL (12.2-16.2); Lymphocytes % (auto) 28.5 % (10.0-50.0); Mean Corpuscular Hemoglobin 29.7 pg (28.0-32.0); Mean Corpuscular Hgb Conc. 32.8 g/dL (32.0-36.0); Mean Corpuscular Volume 90.5 fL (80.0-100.0); Monocytes # (auto) 0.5 10 ^3/uL (0-1.3); Monocytes % (auto) 6.8 % (0.0-12.0); Neutrophils # (auto) 4.3 10 ^3/uL (1.6-8.6); Neutrophils % (auto) 60.5 % (37.0-80.0); Red Blood Cells 4.41 10^6/uL (4.0-5.20); Red Cell Distribution Width 15.3 % (11.8-14.3); White Blood Cell 7.1 10^3/uL (4.4-10.8)
[2021-10-18 01:16] LABS: Albumin 2.9 g/dL (3.4-5.0); Calcium 7.5 mg/dL (8.5-10.1); Magnesium 2.5 mg/dL (1.6-2.6); Potassium 5.2 mmol/L (3.5-5.1)
[2021-10-18 01:32] LABS: BUN/Creatinine Ratio 27.5; Bilirubin, Total 0.3 mg/dL (0.2-1.0); Total Protein 6.5 g/dL (6.4-8.2)
[2021-10-18 02:53] LABS: Urine Bacteria FEW /hpf (None Seen); Urine Blood 1+ /uL (Negative); Urine Mucus FEW (None Seen); Urine Specific Gravity 1.012 (1.001-1.035); Urine WBC 12 /hpf (0 - 5)
[2021-10-18] MEDS ORDERED: ENOXAPARIN SOD 100 MG/1 ML SYRINGE SC ONE (05:45)
[2021-10-18] MEDS ORDERED: cloNIDine HCL 0.1 MG TAB PO PRN (05:45)
[2021-10-18] MEDS ORDERED: NITROGLYCERIN 0.4 MG SL TAB SL PRN (05:45)
[2021-10-18] MEDS ORDERED: ONDANSETRON HCL 4 MG/2 ML VIAL IV PRN (05:45)
[2021-10-18] MEDS ORDERED: TEMAZEPAM 15 MG CAP PO PRN (05:45)
[2021-10-18] MEDS ORDERED: ALBUTEROL SULF 2.5 MG/0.5ML(0.5%) NEB SOLN NEB PRN (05:45)
[2021-10-18] MEDS ORDERED: ACETAMINOPHEN 325 MG TAB PO PRN (05:45)
[2021-10-18] MEDS ORDERED: SODIUM ZIRCONIUM CYCL 10 GM PAK PO ONE (05:45)
[2021-10-18] MEDS ORDERED: SODIUM CHLORIDE 0.9% 1,000 ML IV ONE (06:30)
[2021-10-18] MEDS ORDERED: ALBUMIN 5% 250 ML IV ONE (06:30)
[2021-10-18] MEDS: LEVOTHYROXINE SODIUM 100 MCG TAB PO SCH (06:46)
[2021-10-18] MEDS ORDERED: IODIXANOL 320MG/ML 100ML BTL IV ONE (09:09)
[2021-10-18] MEDS ORDERED: LIDOCAINE 2%HCL (LOCAL ANESTH.) INJ 20ML MDV ONE (09:10)
[2021-10-18 09:36] LABS: INR 1.05 (0.9-1.15); Partial Thromboplastin Time 32.9 sec (23.6-33.0)
[2021-10-18] MEDS ORDERED: VERAPAMIL 2.5MG/ML INJ 2ML VIAL IV ONE (09:39)
[2021-10-18] MEDS ORDERED: ANGIOMAX 250 MG VIAL IV ONE (09:39)
[2021-10-18] MEDS ORDERED: HEPARIN SODIUM (PORCINE) 5000 UNITS/ML 1ML VIAL ONE (09:39)
[2021-10-18] MEDS ORDERED: SODIUM CHL 0.9% 0 ML ONE (09:40)
[2021-10-18] MEDS ORDERED: MIDAZOLAM HCL 2MG/2ML 2ml VIAL (1mg/ml) ONE (09:40)
[2021-10-18] MEDS ORDERED: fentaNYL CITRATE 100 MCG/2 ML VL ONE (09:40)
[2021-10-18] MEDS ORDERED: SODIUM CHL 0.9% 50 ML ONE (09:41)
[2021-10-18] MEDS: ENOXAPARIN SOD 40 MG/0.4 ML SYRINGE SC SCH (10:00)
[2021-10-18 12:00] VITALS: BP 139/102
[2021-10-18] MEDS ORDERED: POTA10TA51 PO (14:42)
[2021-10-18] MEDS: ASPirin 81 mg TAB PO SCH (14:50)
[2021-10-18] MEDS: SACUBITRIL-VALSARTAN 24mg/26mg TAB PO SCH ×2 (14:51→22:29)
[2021-10-18] MEDS: PANTOPRAZOLE 40 MG TAB PO SCH (14:51)
[2021-10-18] MEDS: FUROSEMIDE 40 MG TAB PO SCH (14:51)
[2021-10-18] MEDS: amLODIPine BESYLATE 5 MG TAB PO SCH (14:52)
[2021-10-18] MEDS: SPIRONOLACTONE 25 MG TAB PO SCH (14:52)
[2021-10-18] MEDS: CLOPIDOGREL BISULFATE 75 MG TAB PO SCH (14:52)
[2021-10-18] MEDS: CARVEDILOL 3.125 MG TAB PO SCH ×2 (14:54→22:29)
[2021-10-18] MEDS: MORPHINE SULFATE INJECTION 2 MG/ML SYRG IV PRN ×2 (15:23→22:31)
[2021-10-18 15:59] LABS: Basophils # (auto) 0.1 10 ^3/uL (0-0.2); Basophils % (auto) 0.7 % (0.0-2.0); Eosinophils # (auto) 0.2 10 ^3/uL (0-0.8); Eosinophils % (auto) 2.3 % (0.0-7.0); Hematocrit 43.2 % (36.0-46.0); Hemoglobin 14.7 g/dL (12.2-16.2); Lymphocytes # (auto) 2.1 10 ^3/uL (0.4-5.4); Lymphocytes % (auto) 27.6 % (10.0-50.0); Mean Corpuscular Hemoglobin 30.4 pg (28.0-32.0); Mean Corpuscular Volume 89.6 fL (80.0-100.0); Monocytes # (auto) 0.5 10 ^3/uL (0-1.3); Monocytes % (auto) 6.1 % (0.0-12.0); Neutrophils # (auto) 4.8 10 ^3/uL (1.6-8.6); Neutrophils % (auto) 63.3 % (37.0-80.0); Nucleated Red Blood Cells % 0.2 %; Red Blood Cells 4.82 10^6/uL (4.0-5.20); Red Cell Distribution Width 15.4 % (11.8-14.3); White Blood Cell 7.6 10^3/uL (4.4-10.8)
[2021-10-18 16:18] LABS: BUN/Creatinine Ratio 16.9; Calcium 8.8 mg/dL (8.5-10.1); Potassium 3.7 mmol/L (3.5-5.1)
[2021-10-18 18:17] VITALS: BP 126/96
[2021-10-18] MEDS: cefTRIAXone 1GM/50ML D5W 50 ML IV SCH (18:21)
[2021-10-18] MEDS: SODIUM CHLORIDE 0.9% 1,000 ML IV SCH (18:21)
[2021-10-18 20:00] VITALS: BP 135/97
[2021-10-18 22:00] VITALS: BP 123/88
[2021-10-18] MEDS ORDERED: ATORVASTATIN 20 MG TAB PO SCH (22:00)
[2021-10-19 05:00] VITALS: BP 105/92
[2021-10-19] MEDS: LEVOTHYROXINE SODIUM 100 MCG TAB PO SCH (06:15)
[2021-10-19] MEDS: SODIUM CHLORIDE 0.9% 1,000 ML IV SCH (06:16)
[2021-10-19 06:44] LABS: Basophils # (auto) 0 10 ^3/uL (0-0.2); Basophils % (auto) 0.5 % (0.0-2.0); Eosinophils # (auto) 0.2 10 ^3/uL (0-0.8); Eosinophils % (auto) 2.9 % (0.0-7.0); Hematocrit 46.5 % (36.0-46.0); Hemoglobin 15.6 g/dL (12.2-16.2); Lymphocytes # (auto) 1.5 10 ^3/uL (0.4-5.4); Lymphocytes % (auto) 21.6 % (10.0-50.0); Mean Corpuscular Hemoglobin 30.1 pg (28.0-32.0); Mean Corpuscular Hgb Conc. 33.5 g/dL (32.0-36.0); Mean Corpuscular Volume 89.7 fL (80.0-100.0); Monocytes # (auto) 0.5 10 ^3/uL (0-1.3); Monocytes % (auto) 6.7 % (0.0-12.0); Neutrophils # (auto) 4.9 10 ^3/uL (1.6-8.6); Neutrophils % (auto) 68.3 % (37.0-80.0); Nucleated Red Blood Cells % 0.1 %; Red Blood Cells 5.18 10^6/uL (4.0-5.20); Red Cell Distribution Width 15.4 % (11.8-14.3); White Blood Cell 7.1 10^3/uL (4.4-10.8)
[2021-10-19 07:03] LABS: Albumin 3.6 g/dL (3.4-5.0); BUN/Creatinine Ratio 16.4; Potassium 3.5 mmol/L (3.5-5.1)
[2021-10-19 09:00] VITALS: BP 128/97
[2021-10-19] MEDS ORDERED: DIGOXIN 0.125 MG TAB PO SCH (10:00)
[2021-10-19] MEDS ORDERED: AMOX-277 PO (10:11)
[2021-10-19] MEDS: CARVEDILOL 3.125 MG TAB PO SCH (11:16)
[2021-10-19] MEDS: SACUBITRIL-VALSARTAN 24mg/26mg TAB PO SCH (11:16)
[2021-10-19] MEDS: ASPirin 81 mg TAB PO SCH (11:17)
[2021-10-19] MEDS: FUROSEMIDE 40 MG TAB PO SCH (11:17)
[2021-10-19] MEDS: PANTOPRAZOLE 40 MG TAB PO SCH (11:17)
[2021-10-19] MEDS: SPIRONOLACTONE 25 MG TAB PO SCH (11:17)
[2021-10-19] MEDS: CLOPIDOGREL BISULFATE 75 MG TAB PO SCH (11:17)
[2021-10-19] MEDS: amLODIPine BESYLATE 5 MG TAB PO SCH (11:17)
[2021-10-19] MEDS: ENOXAPARIN SOD 40 MG/0.4 ML SYRINGE SC SCH (11:18)
[2021-10-19] MEDS: cefTRIAXone 1GM/50ML D5W 50 ML IV SCH (11:19)
[2021-10-19 13:00] VITALS: BP 122/99
[2021-10-19 16:44] VITALS: BP 109/88
== END 2021-10-19 17:30 | disposition home or self-care (01) | DRG 281 ==
LOC: EDBD 22:20 → ER 22:25 → TELE 10-18 05:35 → TELE-WESTW 10-18 12:19
PROVIDERS: ADMIT Nurse Practitioner; ATTEND Internal Medicine
PROC: 4A023N7 Measurement of Cardiac Sampling and Pressure, Left Heart, Percutaneous Approach (ICD-10-PCS; principal; 2021-10-18)
PROC: B211YZZ Fluoroscopy of Multiple Coronary Arteries using Other Contrast (ICD-10-PCS; 2021-10-18)
DX: I21.4 Non-ST elevation (NSTEMI) myocardial infarction (principal); N39.0 Urinary tract infection, site not specified; D68.9 Coagulation defect, unspecified; I50.30 Unspecified diastolic (congestive) heart failure; E87.5 Hyperkalemia; I25.10 Atherosclerotic heart disease of native coronary artery without angina pectoris; I48.0 Paroxysmal atrial fibrillation; E78.5 Hyperlipidemia, unspecified; Z20.822 Contact with and (suspected) exposure to COVID-19; F12.10 Cannabis abuse, uncomplicated; I11.0 Hypertensive heart disease with heart failure; K21.9 Gastro-esophageal reflux disease without esophagitis; R79.89 Other specified abnormal findings of blood chemistry; J44.9 Chronic obstructive pulmonary disease, unspecified; Z82.49 Family history of ischemic heart disease and other diseases of the circulatory system; Z79.01 Long term (current) use of anticoagulants; Z83.3 Family history of diabetes mellitus; Z87.891 Personal history of nicotine dependence; Z90.710 Acquired absence of both cervix and uterus; Z98.61 Coronary angioplasty status; Z88.5 Allergy status to narcotic agent; Z88.8 Allergy status to other drugs, medicaments and biological substances; Z71.6 Tobacco abuse counseling
CPT/HCPCS: 36415; 71045; 71250; 71275; 80048; 80053; 81001; 83735; 83880; 84484; 85025; 85379; 85610; 85730; 87426; 93005; 93306; 93458; 93970; 94640; 96360; 96372; 99152; G0378; J0696; J2250; Q9967

== ENCOUNTER 2023-08-18 16:58 | Emergency (ER) | payer OTHER, MEDICAID ==
[~2023-08-18] VITALS: Ht 167.6 cm; Wt 77.2 kg
[~2023-08-18 16:58] MED LIST changes: -AMLO-496 PO; +AMLO1TAB23 PO; +AMOX875T4 PO; -SOTA80TA PO
[2023-08-18 18:53] LABS: Basophils # (auto) 0.1 10 ^3/uL (0-0.2); Eosinophils # (auto) 0.2 10 ^3/uL (0-0.8); Eosinophils % (auto) 3.7 % (0.0-7.0); Hematocrit 40.5 % (36.0-46.0); Hemoglobin 13.4 g/dL (12.2-16.2); Lymphocytes % (auto) 36.1 % (10.0-50.0); Mean Corpuscular Hemoglobin 30.6 pg (28.0-32.0); Mean Corpuscular Volume 92.6 fL (80.0-100.0); Monocytes # (auto) 0.3 10 ^3/uL (0-1.3); Monocytes % (auto) 5.4 % (0.0-12.0); Neutrophils % (auto) 53.8 % (37.0-80.0); Nucleated Red Blood Cells % 0.1 %; Red Blood Cells 4.37 10^6/uL (4.0-5.20); Red Cell Distribution Width 14.4 % (11.8-14.3); White Blood Cell 5.7 10^3/uL (4.4-10.8)
[2023-08-18 19:19] LABS: Albumin 4.1 g/dL (3.2-4.8); Alkaline Phosphatase 65 U/L (46-116); Anion Gap 7 (5-15); Aspartate Aminotransferase 19 U/L (13-40); Bilirubin, Total 0.5 mg/dL (0.2-1.0); Blood Urea Nitrogen 9 mg/dL (9-23); Calcium 8.9 mg/dL (8.7-10.4); Carbon Dioxide 25 mmol/L (20-30); Chloride 106 mmol/L (98-107); Glucose 91 mg/dL (74-106); Magnesium 1.9 mg/dL (1.6-2.6); Sodium 138 mmol/L (136-145)
[2023-08-18 19:20] LABS: Total Protein 6.9 g/dL (5.7-8.2)
[2023-08-18 19:24] LABS: Alanine Aminotransferase < 9 U/L (7-40)
[2023-08-18] MEDS ORDERED: ALBU108A5 IN (23:44)
[2023-08-18] MEDS ORDERED: DOXY-286 PO (23:44)
[2023-08-18 23:45] VITALS: PULSE 60; RESP 18; O2SAT 94
[2023-08-19 01:45] VITALS: BP 125/70; PULSE 60; RESP 14; TEMP 98.6; O2SAT 98
== END 2023-08-19 02:00 | disposition home or self-care (01) ==
LOC: EDBD 16:58 → ER 16:58
DX: J18.9 Pneumonia, unspecified organism (principal); R06.00 Dyspnea, unspecified; I10 Essential (primary) hypertension; I25.2 Old myocardial infarction; E78.5 Hyperlipidemia, unspecified; K21.9 Gastro-esophageal reflux disease without esophagitis; J44.9 Chronic obstructive pulmonary disease, unspecified; I48.91 Unspecified atrial fibrillation; I25.10 Atherosclerotic heart disease of native coronary artery without angina pectoris; Z98.890 Other specified postprocedural states; Z87.891 Personal history of nicotine dependence
CPT/HCPCS: 36415; 71045; 80053; 80162; 83605; 83735; 83880; 84484; 85025; 87040; 93005

== ENCOUNTER 2023-08-25 14:47 | Emergency (ER) | payer OTHER, MEDICAID ==
[~2023-08-25 14:47] MED LIST changes: +ALBU108A5 IN; +DOXY-286 PO
== END 2023-08-25 16:43 | disposition left against medical advice (07) ==
LOC: EDBD 14:47 → ER 14:47
DX: M25.552 Pain in left hip (principal); R11.0 Nausea; Z53.21 Procedure and treatment not carried out due to patient leaving prior to being seen by health care provider
CPT/HCPCS: 73502

== ENCOUNTER 2023-09-23 10:12 | Inpatient (IN) | payer OTHER, MEDICAID ==
[~2023-09-23] VITALS: Ht 157.5 cm; Wt 68.0 kg
[2023-09-23 11:29] LABS: Basophils # (auto) 0 10 ^3/uL (0-0.2); Basophils % (auto) 0.7 % (0.0-2.0); Eosinophils # (auto) 0.1 10 ^3/uL (0-0.8); Eosinophils % (auto) 0.9 % (0.0-7.0); Hematocrit 37.9 % (36.0-46.0); Hemoglobin 12.6 g/dL (12.2-16.2); Lymphocytes # (auto) 0.8 10 ^3/uL (0.4-5.4); Lymphocytes % (auto) 14.1 % (10.0-50.0); Mean Corpuscular Hemoglobin 30.6 pg (28.0-32.0); Mean Corpuscular Hgb Conc. 33.3 g/dL (32.0-36.0); Monocytes # (auto) 0.2 10 ^3/uL (0-1.3); Monocytes % (auto) 3.9 % (0.0-12.0); Neutrophils # (auto) 4.6 10 ^3/uL (1.6-8.6); Neutrophils % (auto) 80.4 % (37.0-80.0); Red Blood Cells 4.12 10^6/uL (4.0-5.20); Red Cell Distribution Width 14.8 % (11.8-14.3); White Blood Cell 5.7 10^3/uL (4.4-10.8)
[2023-09-23 11:42] LABS: INR 1.06 (0.9-1.15); Prothrombin Time 11.1 sec (9.3-11.8)
[2023-09-23 11:49] LABS: Alanine Aminotransferase 11 U/L (7-40); Albumin 4.3 g/dL (3.2-4.8); Alkaline Phosphatase 65 U/L (46-116); Anion Gap 7 (5-15); Aspartate Aminotransferase 23 U/L (13-40); BUN/Creatinine Ratio 15.6 (10.0-20.0); Bilirubin, Total 0.6 mg/dL (0.2-1.0); Blood Urea Nitrogen 14 mg/dL (9-23); Calcium 8.9 mg/dL (8.7-10.4); Carbon Dioxide 25 mmol/L (20-30); Chloride 107 mmol/L (98-107); Glucose 103 mg/dL (74-106); Magnesium 1.8 mg/dL (1.6-2.6); Potassium 4.3 mmol/L (3.5-5.1); Sodium 139 mmol/L (136-145); Total Protein 6.9 g/dL (5.7-8.2)
[2023-09-23] MEDS ORDERED: NITROGLYCERIN 0.4 MG SL TAB SL PRN (13:45)
[2023-09-23] MEDS ORDERED: ALBUTEROL MEDNEB 2.5 mg/3ml NEB NEB PRN (13:45)
[2023-09-23] MEDS ORDERED: MORPHINE SULFATE INJ 2 MG/ml SYRG IV PRN (13:45)
[2023-09-23 14:15] VITALS: PULSE 72; RESP 18; O2SAT 96
[2023-09-23] MEDS ORDERED: levETIRAcetam 1000 mg/100ml 100 ML IV ONE (14:30)
[2023-09-23] MEDS ORDERED: LORazepam 2MG/ML-1ML VIAL IV PRN (14:30)
[2023-09-23 14:49] LABS: Triglycerides 73 mg/dL (< 150)
[2023-09-23 14:50] LABS: LDL Cholesterol 83 mg/dL (< 100)
[2023-09-23 14:51] LABS: Cholesterol 148 mg/dL (< 200); HDL Cholesterol 57 mg/dL (40-59)
[2023-09-23] MEDS: SODIUM CHLORIDE 0.9% 1,000 ML IV SCH (15:11)
[2023-09-23 18:31] VITALS: O2SAT 94
[2023-09-23 18:52] VITALS: BP 112/67; PULSE 66; PULSE 73; PULSE 75; RESP 18; TEMP 97.8; TEMP 98.4; O2SAT 94; O2SAT 98
[2023-09-23] MEDS: ACETAMINOPHEN 325 MG TAB PO PRN ×2 (19:28→20:41)
[2023-09-23 20:00] VITALS: BP 112/67; PULSE 73; PULSE 82; RESP 18; TEMP 98.4; O2SAT 94
[2023-09-23 22:00] VITALS: BP 112/67; PULSE 73; RESP 15; TEMP 98.4; O2SAT 94
[2023-09-23] MEDS: CARVEDILOL 3.125 MG TAB PO SCH (22:00)
[2023-09-23] MEDS: APIXABAN 5 MG TAB PO SCH (22:01)
[2023-09-23] MEDS ORDERED: HYDROcodone-ACET 5/325MG TAB PO PRN (23:45)
[2023-09-24] VITALS (9 sets, daily range): BP systolic 99–133; BP diastolic 59–87; PULSE 48–86; RESP 16–18; TEMP 97.6–99.1; O2SAT 93–97
[2023-09-24] MEDS: traMADol HCL 50 MG TAB PO ONE (02:45)
[2023-09-24] MEDS: SODIUM CHLORIDE 0.9% 1,000 ML IV SCH ×2 (06:25→22:12)
[2023-09-24] MEDS ORDERED: LEVOTHYROXINE SODIUM 100 MCG TAB PO SCH (07:00)
[2023-09-24 08:06] LABS: Basophils # (auto) 0 10 ^3/uL (0-0.2); Basophils % (auto) 0.7 % (0.0-2.0); Eosinophils # (auto) 0.1 10 ^3/uL (0-0.8); Eosinophils % (auto) 1.8 % (0.0-7.0); Hematocrit 35.9 % (36.0-46.0); Lymphocytes # (auto) 1.6 10 ^3/uL (0.4-5.4); Lymphocytes % (auto) 36.2 % (10.0-50.0); Mean Corpuscular Hemoglobin 30.3 pg (28.0-32.0); Mean Corpuscular Hgb Conc. 33.3 g/dL (32.0-36.0); Mean Corpuscular Volume 91.2 fL (80.0-100.0); Monocytes # (auto) 0.2 10 ^3/uL (0-1.3); Monocytes % (auto) 5.2 % (0.0-12.0); Neutrophils # (auto) 2.5 10 ^3/uL (1.6-8.6); Neutrophils % (auto) 56.1 % (37.0-80.0); Nucleated Red Blood Cells % 0.1 %; Red Blood Cells 3.94 10^6/uL (4.0-5.20); Red Cell Distribution Width 14.7 % (11.8-14.3); White Blood Cell 4.4 10^3/uL (4.4-10.8)
[2023-09-24 08:37] LABS: Albumin 3.7 g/dL (3.2-4.8); Alkaline Phosphatase 51 U/L (46-116); Anion Gap 8 (5-15); Aspartate Aminotransferase 23 U/L (13-40); BUN/Creatinine Ratio 15.4 (10.0-20.0); Blood Urea Nitrogen 10 mg/dL (9-23); Calcium 8.8 mg/dL (8.5-10.1); Carbon Dioxide 23 mmol/L (20-30); Chloride 108 mmol/L (98-107); Glucose 79 mg/dL (74-106); Potassium 3.5 mmol/L (3.5-5.1); Sodium 139 mmol/L (136-145)
[2023-09-24 08:48] LABS: Alanine Aminotransferase < 9 U/L (7-40)
[2023-09-24] MEDS ORDERED: ENOXAPARIN SOD 40 MG/0.4 ML SYRINGE SC SCH (10:00)
[2023-09-24] MEDS ORDERED: DIGOXIN 0.125 MG TAB PO SCH (10:00)
[2023-09-24] MEDS: CARVEDILOL 3.125 MG TAB PO SCH ×2 (10:00→22:00)
[2023-09-24] MEDS: SACUBITRIL-VALSARTAN 24mg/26mg TAB PO SCH (10:03)
[2023-09-24] MEDS: CLOPIDOGREL BISULFATE 75 MG TAB PO SCH (10:03)
[2023-09-24] MEDS: FAMOTIDINE 20 MG TAB PO SCH (10:03)
[2023-09-24] MEDS: LEVOTHYROXINE SODIUM 100 MCG/5 ML INJ IV SCH (10:03)
[2023-09-24] MEDS: APIXABAN 5 MG TAB PO SCH ×2 (10:04→22:08)
[2023-09-24] MEDS: levETIRAcetam 1000 mg/100ml 100 ML IV SCH (11:21)
[2023-09-24] MEDS: HYDROcodone-ACET 5/325MG TAB PO PRN (14:41)
[2023-09-25] VITALS (9 sets, daily range): BP systolic 106–126; BP diastolic 62–89; PULSE 52–101; RESP 16–20; TEMP 97.3–98.1; O2SAT 94–98
[2023-09-25 07:32] LABS: Basophils # (auto) 0 10 ^3/uL (0-0.2); Basophils % (auto) 1.1 % (0.0-2.0); Eosinophils # (auto) 0.1 10 ^3/uL (0-0.8); Eosinophils % (auto) 2.4 % (0.0-7.0); Hematocrit 41.3 % (36.0-46.0); Hemoglobin 13.4 g/dL (12.2-16.2); Lymphocytes # (auto) 1.3 10 ^3/uL (0.4-5.4); Lymphocytes % (auto) 34.1 % (10.0-50.0); Mean Corpuscular Hemoglobin 30.3 pg (28.0-32.0); Mean Corpuscular Hgb Conc. 32.4 g/dL (32.0-36.0); Mean Corpuscular Volume 93.4 fL (80.0-100.0); Monocytes # (auto) 0.2 10 ^3/uL (0-1.3); Monocytes % (auto) 5.7 % (0.0-12.0); Neutrophils # (auto) 2.2 10 ^3/uL (1.6-8.6); Neutrophils % (auto) 56.7 % (37.0-80.0); Red Blood Cells 4.42 10^6/uL (4.0-5.20); Red Cell Distribution Width 14.9 % (11.8-14.3); White Blood Cell 3.9 10^3/uL (4.4-10.8)
[2023-09-25 07:41] LABS: Albumin 3.8 g/dL (3.2-4.8); Alkaline Phosphatase 51 U/L (46-116); Anion Gap 5 (5-15); Aspartate Aminotransferase 20 U/L (13-40); BUN/Creatinine Ratio 8.8 (10.0-20.0); Blood Urea Nitrogen 6 mg/dL (9-23); Calcium 8.4 mg/dL (8.7-10.4); Carbon Dioxide 24 mmol/L (20-30); Chloride 109 mmol/L (98-107); Glucose 88 mg/dL (74-106); Potassium 3.8 mmol/L (3.5-5.1); Sodium 138 mmol/L (136-145)
[2023-09-25 07:42] LABS: Bilirubin, Total 0.7 mg/dL (0.2-1.0); Total Protein 6.3 g/dL (5.7-8.2)
[2023-09-25 07:43] LABS: Alanine Aminotransferase 9 U/L (7-40)
[2023-09-25] MEDS: APIXABAN 5 MG TAB PO SCH (09:30)
[2023-09-25] MEDS: FAMOTIDINE 20 MG TAB PO SCH (09:30)
[2023-09-25] MEDS: SACUBITRIL-VALSARTAN 24mg/26mg TAB PO SCH (09:30)
[2023-09-25] MEDS: CLOPIDOGREL BISULFATE 75 MG TAB PO SCH (09:30)
[2023-09-25] MEDS: LEVOTHYROXINE SODIUM 100 MCG/5 ML INJ IV SCH (09:30)
[2023-09-25] MEDS: CARVEDILOL 3.125 MG TAB PO SCH (10:00)
[2023-09-25] MEDS ORDERED: LEVO150T10 PO (10:23)
[2023-09-25] MEDS: levETIRAcetam 1000 mg/100ml 100 ML IV SCH (10:35)
[2023-09-25] MEDS: SODIUM CHLORIDE 0.9% 1,000 ML IV SCH (15:45)
[2023-09-25] MEDS: HYDROcodone-ACET 5/325MG TAB PO PRN (17:29)
== END 2023-09-25 21:27 | disposition home or self-care (01) | DRG 101 ==
LOC: EDBD 10:12 → ER 10:12 → EDSEX 10:12 → TELE 13:37 → TELE-EAST 18:41
PROVIDERS: ADMIT Internal Medicine; ATTEND Internal Medicine
DX: G40.909 Epilepsy, unspecified, not intractable, without status epilepticus (principal); I48.91 Unspecified atrial fibrillation; I10 Essential (primary) hypertension; K21.9 Gastro-esophageal reflux disease without esophagitis; E78.5 Hyperlipidemia, unspecified; J44.9 Chronic obstructive pulmonary disease, unspecified; E03.9 Hypothyroidism, unspecified; I25.10 Atherosclerotic heart disease of native coronary artery without angina pectoris; Z82.49 Family history of ischemic heart disease and other diseases of the circulatory system; Z83.3 Family history of diabetes mellitus; Z87.891 Personal history of nicotine dependence; Z90.710 Acquired absence of both cervix and uterus; I25.2 Old myocardial infarction; Z88.5 Allergy status to narcotic agent; Z88.8 Allergy status to other drugs, medicaments and biological substances
CPT/HCPCS: 36415; 70450; 71045; 73502; 80053; 80061; 83735; 83880; 84439; 84443; 85025; 85610; 85730; 87081; 93306; 93886; 96365; 97163; 99291; G0378; J3490

== ENCOUNTER 2024-11-29 19:32 | Emergency (ER) | payer OTHER, MEDICAID ==
[~2024-11-29] VITALS: Ht 157.5 cm; Wt 57.4 kg
[~2024-11-29 19:32] MED LIST changes: -AMOX875T4 PO; -CAR3125T OR; +CARV-214 OR; -DIGO0.12 PO; -DOXY-286 PO; -LEVO100T8 PO; +POTA-36 PO; -POTA10TA51 PO
--- NOTE | 2024-11-29 20:50 | DVH ---
CLINICAL INDICATION: fall injury TECHNIQUE: 2 radiographic views of the left forearm were obtained. Comparison: None FINDINGS/IMPRESSION: There is no evidence of acute fracture or dislocation. The visualized joint space is well maintained. The alignment is anatomical. There is no radiopaque foreign body.
--- NOTE | 2024-11-29 20:50 | DVH ---
EXAMINATION: XY L RIB X RAY INDICATION: fall injury COMPARISON: None TECHNIQUE: Frontal view of the chest and 4 views of the left ribs history FINDINGS: Mild cardiomegaly without pulmonary vascular congestion. Calcified plaque projects over the aortic ar ch. No displaced left rib fracture. IVC filter projects over the right mid abdomen. IMPRESSION: Mild cardiomegaly No displaced left rib fracture.
--- NOTE | 2024-11-29 21:14 | ED.PDOC ---
Mult. trauma (HPI) HPI Comments Pt arrived in [facility] due to mechanical fall injury yesterday while at home. Pt alert and oriented x 4. VSS. No distress present. Pt C/O 8/10 Left rib and left arm pain, Pt was bending over and accidentally pushed by opening door and fell on left side. Pt denies head trauma or LOC. Denies dizziness, N/V. No swelling or defomities present. DENIES DIFFICULTY BREATHING, SHORTNESS OF BREATH, CHEST PAIN, ABDOMINAL PAIN, NECK OR BACK PAIN. DENIES LOC DENIES NUMBNESS OR WEAKNESS. Chief Complaint: Fall Injury Time Seen by MD: 19:35 Primary Care Provider: CL Reviewed notes: Nurses Notes, Medications, Allergies Allergies: Coded Allergies: Levofloxacin (Verified Allergy, Intermediate, RASH/HIVES, 01/23/19) Home Meds Active Scripts Albuterol Sulfate (Albuterol Sulfate Hfa) 108 Mcg/Act Aer, 108 MCG IN Q2HPRN PRN for 1 Day, AER Prov:MELISSA WHITMAN DO 08/18/23 Potassium Chloride (POTASSIUM CHLORIDE CR) 10 Meq Tb, 10 MEQ PO DAILY, #30 Hold for 5 days Prov:BRYAN HAUSER MD 10/18/21 Reported Medications Dicyclomine Hcl (Dicyclomine Hcl) 20 Mg Tab, 20 MG PO BID for 30 Days, MG 02/29/20 Carvedilol (COREG) 3.125 Mg Tab, 6.25 MG OR BID, TAB 02/29/20 Omeprazole (Gnp Omeprazole) 20 Mg Tab, 40 MG PO DAILY, TAB 07/16/19 Famotidine (Famotidine) 20 Mg Tab, 20 MG PO DAILY for 30 Days, MG 07/16/19 Clopidogrel Bisulfate (CLOPIDOGREL) 75 Mg Tab, 1 TAB PO DAILY, #90 TAB 1 Refill 01/24/19 Apixaban Base (ELIQUIS) 5 Mg Tab, 5 MG OR BID for 90 Days, #180 TAB 01/24/19 Furosemide (Furosemide) 40 Mg Tab, 40 MG PO DAILY for 30 Days 01/24/19 Sacubitril-Valsartan (Entresto 24-26 mg) 1 Tab Tab, 1 TAB PO, TAB 01/24/19 Docusate Sodium (Docusate Sodium) 100 Mg Tab, 100 MG PO DAILYP PRN for FOR CONSTIPATION for 30 Days, MG 01/24/19 Spironolactone (Spironolactone) 25 Mg Tab, 1 TAB PO DAILY, #90 TAB 1 Refill 01/24/19 Atorvastatin Calcium (ATORVASTATIN CALCIUM) 80 Mg Tab, 10 MG PO DAILY 04/30/18 Amlodipine Besylate (Amlodipine Besylate) 10 Mg Tab, 10 MG PO DAILY 04/30/18 Information Source: Patient Mode of Arrival: platform walker Past Medical History PAST MEDICAL HISTORY: AFIB, Asthma, CAD, COPD, GERD, High Lipids, HTN, VT, Seizures Surgical History: Appendectomy, Hernia Repair, Hysterectomy, PTCA 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: No 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 Family History Family History: Family hx of DM, Family hx of heart emma, Family hx of HTN Social History Smoker: Quit Greater Than 1 Year Alcohol: Occasionally Drugs: Denies Drug Use Lives In: Home Constitutional: denies: chills, diaphoresis, fatigue, fever, malaise, sweats, weakness, others EENTM: denies: blurred vision, double vision, ear bleeding, ear discharge, ear drainage, ear pain, ear ringing, eye pain, eye redness, hearing loss, mouth pain, mouth swelling, nasal discharge, nose bleeding, nose congestion, nose pain, photophobia, tearing, throat pain, throat swelling, voice changes, others Respiratory: denies: cough, hemoptysis, orthopnea, SOB at rest, shortness of b reath, SOB with excertion, stridor, wheezing, others Cardiovascular: denies: chest pain, dizzy spells, diaphoresis, Dyspnea on exertion, edema, irregular heart beat, left arm pain, lightheadedness, palpitations, PND, syncope, others Gastrointestinal: denies: abdomen distended, abdominal pain, blood streaked bowels, constipated, diarrhea, dysphagia, difficulty swallowing, hematemesis, melena, nausea, poor appetite, poor fluid intake, rectal bleeding, rectal pain, vomiting, others Genitourinary: denies: abnormal vagina bleeding, burning, dyspareunia, dysuria, flank pain, frequency, hematuria, incontinence, pain, , vagina discharge, urgency, others Neurological: denies: dizziness, fainting, headache, left sided numbness, left sided weakness, numbness, paresthesia, pre-existing deficit, right sided numbness, right sided weakness, seizure, speech problems, tingling, tremors, weakness, others Musculoskeletal: reports: others (LEFT LATERAL RIB PAIN. FOREARM PAIN LEFT); denies: back pain, gout, joint pain, joint swelling, muscle pain, muscle stiffness, neck pain Integumetry: denies: bruises, change in color, change in hair/nails, dryness, laceration, lesions, lumps, rash, wounds, others Allergic/Immunocompromised: denies: Difficulty Healing, Frequent Infections, Hives, Itching, others Hematologic/Lymphatic: denies: anemia, blood clots, easy bleeding, easy bruising, swollen glands, others Endocrine: denies: excessive hunger, excessive sweating, excessive thirst, excessive urination, flushing, intolerance to cold, intolerance to heat, unexplained weight gain, unexplained weight loss, others Psychiatric: denies: anxiety, bipolar disorder, depression, hopeless, panic disorder, schizophrenia, sleepless, suicidal, others Physical Exam General Appearance: No Apparent Distress, Normal HEENT: Normal ENT Inspection, Pharynx Normal, TMs Normal Neck: Full Range of Motion, Non-Tender Respiratory: Chest Non-Tender (MODERATE TENDERNESS ON PALPATION LEFT LATERAL RIBCAGE WITHOUT CREPITUS, FLAIL CHEST, ECCHYMOSIS, ABRASIONS OR LESIONS LACERATIONS), Lungs Clear, No Accessory Muscle Use, No Respiratory Distress, Normal Breath Sounds Cardiovascular: No Edema, No JVD, No Murmur, No Gallop, Normal Peripheral Pulses, Regular Rate/Rhythm Breast Exam: Deferred Gastrointestinal: No Organomegaly, Non Tender, No Pulsatile Mass, Normal Bowel Sounds, Soft Genitalia: Deferred Pelvic: Deferred Rectal: Deferred Extremities: Normal capillary refill, Normal inspection, Normal range of motion, Non-tender, No pedal edema Musculoskeletal : Location: Left Extremity Location: Forearm (TENDERNESS OVER MID FOREARM WITHOUT EDEMA, ECCHYMOSIS, BONY PROMINENCE, ABRASIONS, LESIONS OR LACERATIONS. 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 Was a procedure done?: No Differential Diagnosis Multiple Trauma: Fractures, Contusion X-Ray, Labs, Meds, VS Vital Signs Date Time Temp Pulse Resp B/P (MAP) Pulse Ox O2 Delivery O2 Flow Rate FiO2 11/29/24 21:19 112 20 96 Room Air 11/29/24 21:19 97.7 112 20 117/78 (91) 96 97.7 11/29/24 20:30 109 11/29/24 19:50 97.7 112 11 118/78 (91) 96 Current Medications Medications (Trade) Dose Ordered Sig/Kasandra Route Start Time Stop Time Status Last Admin Acetaminophen/ Hydrocodone Bitart ([place] 5/325MG Tab) 1 tab ONCE ONCE PO 11/29/24 21:15 11/29/24 21:16 DC 11/29/24 21:40 Ketorolac Tromethamine (Toradol Injection) 60 mg ONCE ONCE IM 11/29/24 22:15 11/29/24 22:16 DC 11/29/24 22:18 X-Ray, Labs, Meds, VS Comment IMAGING: CT CHEST SHOWS NO ACUTE FINDINGS. X-RAY LEFT SIDED RIBS SHOWS NO ACUTE FRACTURES OR OSSEOUS LESIONS X-RAY LEFT FOREARM SHOWS NO ACUTE FRACTURES OR OSSEOUS LESIONS PATIENT GIVEN NORCO 5 MG P.O. AND TORADOL 60 MG IM REPORTS IMPROVEMENT IN PAIN AND FUNCTION REQUESTING DISCHARGE AT THIS TIME. 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 ADVISED ON ICE AND HEAT. ADVISED TO FOLLOW UP WITH HER PCP WITHIN 2-3 DAYS NECESSARY CONSIDER FURTHER IMAGING IF SYMPTOMS PERSIST. RETURN PRECAUTIONS GIVEN PATIENT INDICATES UNDERSTANDING AGREES WITH DISCHARGE PLAN OF CARE. Time of 1ST Reevaluation: 22:23 Reevaluation 1ST: Improved Patient Education/Counseling: Diagnosis, Treatment, Prognosis, Need For Follow Up Family Education/Counseling: Diagnosis, Treatment, Prognosis, Need For Follow Up Departure 1 Departure Time of Disposition: 22:24 Impression: Primary Impression: Contusion of rib on left side Qualified Codes: S20.212A - Contusion of left front wall of thorax, initial encounter Additional Impression: Contusion of left forearm, initial encounter Disposition: HOME / SELF CARE / HOMELESS Condition: Stable e-Prescriptions Diclofenac Sodium (Diclofenac Sodium Ec) 50 Mg Tab 1 TAB PO BID PRN for 7 Days, #14 TAB Prov: ISACC SAENZ 11/29/24 Methocarbamol (Methocarbamol) 500 Mg Tab 500 MG PO BID PRN for 5 Days, #10 TAB Prov: ISACC SAENZ 11/29/24 Discharged With: Relative Critical Care Note Critical Care Time?: No Stability Stability form required: No ISACC SAENZ Nov 29, 2024 21:14
[2024-11-29 21:19] VITALS: BP 117/78; PULSE 112; RESP 20; TEMP 97.7; O2SAT 96
[2024-11-29] MEDS: HYDROcodone-ACET 5/325MG TAB PO ONE (21:40)
--- NOTE | 2024-11-29 21:50 | DVH ---
Procedure: CT CHEST WITHOUT CONTRAST Reason for study/Clinical History: S/P FALL lEFT SIDED CHEST PAIN Comparison Study: None available at time of dictation. Exam Date: 11/29/2024 09:20 PM TECHNIQUE: Multidetector CT of the chest was performed from the lung apices to the upper abdomen with out the use of intravenous contract. Axial, coronal and sagittal multiplanar reformats were performed . Radiation Dose Information: CT Dose: CTDI volume is 6.52 mGy. Dose-length product is 259.48 mGy*cm The dose indicators for CT are the volume Computed Tomography (CT) Dose Index (CTDIvol) and the Dose Length Product (DLP), and are measured in units of mGy and mGy-cm, respectively. These indicators are not patient dose, but values generated from the CT scanner acquisition factors. The report includes radiation exposure data for exposures received during this examination. FINDINGS: Lower neck: Normal thyroid. Lungs: No focal consolidation, pleural effusion or pneumothorax. Heart/Vascular Structures: Normal heart size. No pericardial effusion. Limited evaluation without IV contrast Filter in the inferior vena cava. Lymph Nodes: No adenopathy Pleura: No pleural effusion or significant pneumothorax. Musculoskeletal: No acute osseous abnormality. No displaced rib fractures no pleural thickening or pl eural effusions Soft tissues: Normal. Upper abdomen: Limited portions of the upper abdomen are unremarkable. IMPRESSION: 1. No acute intrathoracic abnormality. 2. No displaced rib fractures 3. No areas of pleural thickening or pleural effusions. 4. No pneumothorax. Radiation optimization: All CT scans at this facility use at least one of these dose optimization alyce hniques: automated exposure control mA and/or kV adjustment per patient size (includes targeted exam s where dose is matched to clinical indication) or iterative reconstruction.
[2024-11-29] MEDS: KETOROLAC TROMETH 60MG/2ML VIAL IM ONE (22:18)
[2024-11-29] MEDS ORDERED: DICL50TA4 PO (22:48)
[2024-11-29] MEDS ORDERED: METH-1181 PO (22:48)
--- NOTE | 2024-11-30 07:22 | ECG ---
[facility] Test Date: 2024-11-29 Test Time: 20:23:21 Pat Name: VIBHA VARGHESE Department: ER Room: Gender: F Certified Midwife: JAXON : 1950 Requested By: ISACC SAENZ Order Number: [id number] Reading MD: Blaze Montgomery Measurements Intervals [place] Rate: 109 P: 0 CA: 0 QRS: 21 QRSD: 94 T: 92 QT: 339 QTc: 457 Interpretive Statements Atrial fibrillation LVH with secondary repolarization abnormality Electronically Signed On 11-30-2024 14:46:10 PST by Blaze Montgomery Please click the below link to view image of tracing.
== END 2024-11-29 23:45 | disposition home or self-care (01) ==
LOC: ER 19:32
DX: S20.212A Contusion of left front wall of thorax, initial encounter (principal); S50.12XA Contusion of left forearm, initial encounter; I10 Essential (primary) hypertension; I48.91 Unspecified atrial fibrillation; K21.9 Gastro-esophageal reflux disease without esophagitis; Z79.899 Other long term (current) drug therapy; Z90.49 Acquired absence of other specified parts of digestive tract; Z90.710 Acquired absence of both cervix and uterus; Z98.890 Other specified postprocedural states; Z88.1 Allergy status to other antibiotic agents; W22.8XXA Striking against or struck by other objects, initial encounter; Y93.89 Activity, other specified; Y92.89 Other specified places as the place of occurrence of the external cause; Y99.8 Other external cause status
CPT/HCPCS: 71101; 71250; 73090; 93005; 96372; 99285; J1885

== ENCOUNTER 2025-02-23 01:42 | Inpatient (IN) | payer OTHER, MEDICAID ==
[~2025-02-23] VITALS: Ht 157.5 cm; Wt 59.6 kg
[2025-02-23] VITALS (8 sets, daily range): BP systolic 127–146; BP diastolic 87–98; PULSE 82–122; RESP 16–24; TEMP 98.2–98.3; O2SAT 95–99
[2025-02-23] MEDS: ALBUTEROL SULF 2.5 MG/0.5ML(0.5%) NEB SOLN NEB ONE (02:32)
[2025-02-23] MEDS: IPRATROPIUM BROM 0.5 MG/2.5ML INH SOL NEB ONE (02:32)
--- NOTE | 2025-02-23 02:33 | ED.PDOC ---
History of Present Illness HPI Comments 74-year-old female, with a history of AFib on Eliquis, CHF, COPD, HTN and marijuana use, is brought in by ambulance for complaint of shortness of breath on exertion, with associated flu-like symptoms. Patient is a poor historian. She endorses on. Mild relief with out home inhaler use. Per EMS report, jun morin was found in AFib RVR. Patient denies having any chest pain, palpitations, fever, chills, or further associated symptoms or modifying factors. Chief Complaint: Shortness of Breath Time Seen by MD: 02:15 Primary Care Provider: CL Reviewed Notes: Nurses Notes, Friend Of The Court Notes, Medications, Allergies Allergies: Coded Allergies: Levofloxacin (Verified Allergy, Intermediate, RASH/HIVES, 01/23/19) Home Meds Active Scripts Albuterol Sulfate (Albuterol Sulfate Hfa) 108 Mcg/Act Aer, 108 MCG IN Q2HPRN PRN for 1 Day, AER Prov:MELISSA WHITMAN DO 08/18/23 Potassium Chloride (POTASSIUM CHLORIDE CR) 10 Meq Tb, 10 MEQ PO DAILY, #30 Hold for 5 days Prov:BRYAN HAUSER MD 10/18/21 Reported Medications Dicyclomine Hcl (Dicyclomine Hcl) 20 Mg Tab, 20 MG PO BID for 30 Days, MG 02/29/20 Carvedilol (COREG) 3.125 Mg Tab, 6.25 MG OR BID, TAB 02/29/20 Omeprazole (Gnp Omeprazole) 20 Mg Tab, 40 MG PO DAILY, TAB 07/16/19 Famotidine (Famotidine) 20 Mg Tab, 20 MG PO DAILY for 30 Days, MG 07/16/19 Clopidogrel Bisulfate (CLOPIDOGREL) 75 Mg Tab, 1 TAB PO DAILY, #90 TAB 1 Refill 01/24/19 Apixaban Base (ELIQUIS) 5 Mg Tab, 5 MG OR BID for 90 Days, #180 TAB 01/24/19 Furosemide (Furosemide) 40 Mg Tab, 40 MG PO DAILY for 30 Days 01/24/19 Sacubitril-Valsartan (Entresto 24-26 mg) 1 Tab Tab, 1 TAB PO, TAB 01/24/19 Docusate Sodium (Docusate Sodium) 100 Mg Tab, 100 MG PO DAILYP PRN for FOR CONSTIPATION for 30 Days, MG 01/24/19 Spironolactone (Spironolactone) 25 Mg Tab, 1 TAB PO DAILY, #90 TAB 1 Refill 01/24/19 Atorvastatin Calcium (ATORVASTATIN CALCIUM) 80 Mg Tab, 10 MG PO DAILY 04/30/18 Amlodipine Besylate (Amlodipine Besylate) 10 Mg Tab, 10 MG PO DAILY 04/30/18 Information Source: Patient, Emergency Med Personnel Mode of Arrival: Ambulatory Severity: Moderate Timing: Hours Duration: Since onset Prehospital treatment: 12 Lead EKG, Supervisor Phosphoric Acid, Oxygen Review of Systems: REVIEW OF SYSTEMS: No fever, no chills, or fatigue HEENT: No sore throat, no earache, no congestion, no neck pain. Cardiac: No chest pain. No palpitations. Lungs: Shortness of breath, no cough. GI: No nausea, no vomiting, no diarrhea, no constipation, no abdominal pain : No dysuria, frequency, or urgency. No hematuria. Musculoskeletal: No joint pain , no joint swelling, no extremity edema. Skin: No rash, no itching. Neuro: No headache, no dizziness, no weakness Vital Signs Vital Signs Date Time Temp Pulse Resp B/P (MAP) Pulse Ox O2 Delivery O2 Flow Rate FiO2 02/23/25 08:00 101 02/23/25 08:00 98.2 22 127/84 (98) 89 98.2 02/23/25 07:49 Nasal Cannula* 2 28 Physical Exam General: Awake, alert and oriented. No acute distress. Skin: Skin in warm, dry and intact. Appropriate color for ethnicity. HEENT: The head is normocephalic and atraumatic. Conjunctivae are clear without exudates or hemorrhage. Sclera is non-icteric. EOM are intact. No signs of nystagmus. Eyelids are normal in appearance without swelling or lesions. Oral mucosa is pink and moist Neck: The neck is supple with normal range of motion. No JVD. Cardiac: Heart rate and rhythm are normal. No murmurs, gallops, or rubs are auscultated. Respiratory: Rales present in right lower lung doshi. No signs of respiratory distress. Otherwise, lung sounds are clear in all remaining lung doshi, bilaterally, without rales, rhonchi, or wheezes. Abdominal: Abdomen is soft, non-tender without distention. Bowel sounds are present and normoactive in all four quadrants. Extremities: Upper and lower extremities are atraumatic in appearance without deformity or edema. Neurological: The patient is awake, alert and oriented to person, place, and time with normal speech. Speech is clear. There is no facial asymmetry. Psychiatric: Appropriate mood and affect. Good judgement and insight. Past Medical History PAST MEDICAL HISTORY: AFIB, Asthma, CAD, COPD, GERD, High Lipids, HTN, UT, Seizures Surgical History: Appendectomy, Hernia Repair, Hysterectomy, [facility] COMMUNITY EDUCATION SPECIALIST History: No Pertinent COMMUNITY EDUCATION SPECIALIST History Family History Family History: Family hx of DM, Family hx of heart emma, Family hx of HTN Social History Smoker: Quit Greater Than 1 Year Alcohol: Occasionally Drugs: Denies Drug Use Lives In: Home Was a procedure done? Was a procedure done?: No EKG EKG : Pulse Rate (adult): 103 [place]: Normal Cardiac Rhythm: Afib Block: None Hypertrophy: None ST: Normal Differential Dx Considerations may include: Differential diagnoses considered include�but are�not limited to acute Bronchitis, Asthma, COPD, Pneumothorax, PE, CHF, Pulmonary HTN, Anemia, CO Poisoning, Methemoglobinemia, Hyperventilation, Metabolic Acidosis, Pulmonary Edema, Pneumonia, ACS, Pericardial Tamponade, Anxiety, other X-Ray, Labs, Meds, VS Vital Signs Date Time Temp Pulse Resp B/P (MAP) Pulse Ox O2 Delivery O2 Flow Rate FiO2 02/23/25 08:00 101 02/23/25 08:00 98.2 109 22 127/84 (98) 89 98.2 02/23/25 07:49 112 24 95 Nasal Cannula* 2 28 02/23/25 06:32 137/63 02/23/25 04:30 98.8 89 22 128/93 (105) 95 98.8 02/23/25 02:33 103 02/23/25 02:32 20 96 Nasal Cannula* 2 28 02/23/25 02:15 101 22 95 Nasal Cannula* 1 24 02/23/25 02:14 98.6 101 22 151/101 (118) 95 98.6 02/23/25 01:48 103 02/23/25 01:43 98.5 108 22 152/101 (118) 96 98.5 Lab Test 02/23/25 06:40 02/23/25 05:19 02/23/25 03:55 02/23/25 03:30 Range/Units White Blood Count 6.2 4.4-10.8 10^3/uL Red Blood Count 4.78 4.0-5.20 10^6/uL Hemoglobin 14.9 12.2-16.2 g/dL Hematocrit 44.5 36.0-46.0 % Mean Corpuscular Volume 93.1 80.0-100.0 fL Mean Corpuscular Hemoglobin 31.1 28.0-32.0 pg Mean Corpuscular Hemoglobin Concent 33.4 32.0-36.0 g/dL Red Cell Distribution Width 15.0 H 11.8-14.3 % Platelet Count 187 140-450 10^3/uL Mean Platelet Volume 8.2 6.9-10.8 fL Neutrophils (%) (Auto) 56.3 37.0-80.0 % Lymphocytes (%) (Auto) 35.0 10.0-50.0 % Monocytes (%) (Auto) 5.5 0.0-12.0 % Eosinophils (%) (Auto) 2.6 0.0-7.0 % Basophils (%) (Auto) 0.6 0.0-2.0 % Neutrophils # (Auto) 3.5 1.6-8.6 10 ^3/uL Lymphocytes # (Auto) 2.2 0.4-5.4 10 ^3/uL Monocytes # (Auto) 0.3 0-1.3 10 ^3/uL Eosinophils # (Auto) 0.2 0-0.8 10 ^3/uL Basophils # (Auto) 0 0-0.2 10 ^3/uL Nucleated Red Blood Cells 0.0 % Prothrombin Time 11.6 9.3-11.8 sec Prothrombin Time INR 1.11 0.9-1.15 Activated Partial Thromboplast Time 33.0 24.5-34.5 SEC Troponin I High Sensitivity 143 *H 140 *H </=34 ng/L Influenza Type A Antigen Negative Negative Influenza Type B Antigen Negative Negative SARS-CoV-2 Antigen (Rapid) Negative NEGATIVE Magnesium Level 1.9 1.6-2.6 mg/dL Test 02/23/25 02:45 02/23/25 02:27 Range/Units Urine Color Yellow Yellow Urine Clarity Clear Clear Urine pH 6.0 5.0-9.0 Urine Specific [place] > 1.050 H 1.001-1.035 Urine Protein 1+ H Negative Urine Ketones Negative Negative Urine Blood Negative Negative /uL Urine Nitrite Negative Negative Urine Bilirubin Negative Negative Urine Urobilinogen Normal Negative mg/dL Urine Leukocyte Esterase Negative Negative /uL Urine RBC 4 0 - 4 /hpf Urine Microscopic WBC 8 H 0-5 /HPF Urine Squamous Epithelial Cells Few <5 /hpf Urine Bacteria Few H None Seen /hpf Urine Mucus Few None Seen Urine Glucose Normal Normal mg/dL Urine Opiates Screen Neg NEGATIVE Urine Fentanyl Screen Neg NEGATIVE Urine Barbiturates Screen Neg NEGATIVE Urine Phencyclidine Screen Neg NEGATIVE Urine Amphetamines Screen Pos NEGATIVE Urine Benzodiazepines Screen Neg NEGATIVE Urine Cocaine Screen Neg NEGATIVE Urine Cannabinoids Screen Pos NEGATIVE White Blood Count 6.2 4.4-10.8 10^3/uL Red Blood Count 5.05 4.0-5.20 10^6/uL Hemoglobin 15.7 12.2-16.2 g/dL Hematocrit 47.0 H 36.0-46.0 % Mean Corpuscular Volume 92.9 80.0-100.0 fL Mean Corpuscular Hemoglobin 31.1 28.0-32.0 pg Mean Corpuscular Hemoglobin Concent 33.4 32.0-36.0 g/dL Red Cell Distribution Width 15.1 H 11.8-14.3 % Platelet Count 193 140-450 10^3/uL Mean Platelet Volume 8.4 6.9-10.8 fL Neutrophils (%) (Auto) 60.8 37.0-80.0 % Lymphocytes (%) (Auto) 29.5 10.0-50.0 % Monocytes (%) (Auto) 5.9 0.0-12.0 % Eosinophils (%) (Auto) 3.1 0.0-7.0 % Basophils (%) (Auto) 0.7 0.0-2.0 % Neutrophils # (Auto) 3.8 1.6-8.6 10 ^3/uL Lymphocytes # (Auto) 1.8 0.4-5.4 10 ^3/uL Monocytes # (Auto) 0.4 0-1.3 10 ^3/uL Eosinophils # (Auto) 0.2 0-0.8 10 ^3/uL Basophils # (Auto) 0 0-0.2 10 ^3/uL Nucleated Red Blood Cells 0.2 % Prothrombin Time 11.0 9.3-11.8 sec Prothrombin Time INR 1.04 0.9-1.15 Sodium Level 141 136-145 mmol/L Potassium Level 4.0 3.5-5.1 mmol/L Chloride Level 110 H 98-107 mmol/L Carbon Dioxide Level 22 20-31 mmol/L Anion Gap 9 5-15 Blood Urea Nitrogen 15 9-23 mg/dL Creatinine 0.88 0.550-1.02 mg/dL Glomerular Filtration Rate Calc 69 >90 mL/min BUN/Creatinine Ratio 17.0 10.0-20.0 Serum Glucose 102 74-106 mg/dL Calcium Level 9.6 8.7-10.4 mg/dL Total Bilirubin 0.8 0.2-1.0 mg/dL Aspartate Amino Transferase (AST) 16 13-40 U/L Alanine Aminotransferase (ALT) 11 7-40 U/L Alkaline Phosphatase 73 46-116 U/L Troponin I High Sensitivity 146 *H </=34 ng/L B-Type Natriuretic Peptide 419.03 0-100 pg/mL Total Protein 6.9 5.7-8.2 g/dL Albumin 4.4 3.2-4.8 g/dL Thyroid Stimulating Hormone (TSH) 94.14 H 0.55-4.78 uIU/mL [place] [address] Ph: [phone] DIAGNOSTIC IMAGING Diagnostic Imaging Report : [id number] Signed PATIENT: VIBHA VARGHESE ACCT: [id number] UNIT: [id number] : 1950 LOC: ER ROOM / BED: / AGE / SEX: 74 / F ADM STATUS: REG ER SERVICE 0 ORDERING PHYSICIAN: CHIQUITA MORALES MD PROCEDURE(s): CXR1 - CHEST XRAY 1 VIEW REASON: cp ORDER NUMBER(s): [id number], ACCESSION NUMBER(s): [id number] EXAM: XR Chest, 1 View CLINICAL INDICATION: cp TECHNIQUE: Frontal view of the chest. COMPARISON: XY CHEST PORTABLE on DOS: 09/23/23, XY CHEST PORTABLE on DOS: 08/18/23, CHEST PORTABLE on DOS: 10/17/21 FINDINGS: LUNGS AND PLEURAL SPACES: See below. HEART: Cardiomegaly with mild congestion. MEDIASTINUM: Unremarkable. Normal mediastinal contour. BONES/JOINTS: Unremarkable. No acute fracture. OTHER FINDINGS: . . . IMPRESSION: Cardiomegaly with mild congestion. ATED BY: ANAYA CHAVEZ MD DICTATED DATE/TIME: 02/23/25501 SIGNED BY: ANAYA CHAVEZ MD SIGNED DATE/TIME: 02/23/25501 CC: [place] [address] Ph: [phone] DIAGNOSTIC IMAGING Diagnostic Imaging Report : [id number] Signed PATIENT: VIBHA VARGHESE ACCT: [id number] UNIT: [id number] : 1950 LOC: ER ROOM / BED: / AGE / SEX: 74 / F ADM STATUS: REG ER SERVICE 1 ORDERING PHYSICIAN: CHIQUITA MORALES MD PROCEDURE(s): CTACH - CT ANGIO CHEST CONTRAST REASON: Rule out pulmonary embolism ORDER NUMBER(s): [id number], ACCESSION NUMBER(s): [id number] EXAM: CT Angiography Chest With Intravenous Contrast CLINICAL INDICATION: Rule out pulmonary embolism TECHNIQUE: Axial computed tomographic angiography images of the chest with intravenous contrast. This CT exam was performed using one or more of the foll owing dose reduction techniques: automated exposure control, adjustment of the mA and/or kV according to patient size, and/or use of iterative reconstruction technique. MIP reconstructed images were created and reviewed. CONTRAST: Medical annual 911 now RADIATION DOSE: CTDIvol = 53.28 mGy, DLP = 392.95 mGy-cm COMPARISON: CT ANGIO CHEST CONTRAST on DOS: 10/19/21 FINDINGS: PULMONARY ARTERIES: Multiple filling defect the right pulmonary artery, concerning for pulmonary emboli. AORTA: The ascending thoracic aorta is ectatic measuring 4.2 cm in maximum diameter. No thoracic aortic aneurysm. LUNGS AND PLEURAL SPACES: Lung emphysema/ COPD. No mass. No consolidation. No significant effusion. No pneumothorax. HEART: Cardiomegaly. No significant pericardial effusion. No evidence of RV dysfunction. BONES/JOINTS: No acute fracture. No dislocation. SOFT TISSUES: Unremarkable. LYMPH NODES: Unremarkable. No enlarged lymph nodes. OTHER FINDINGS: . . . IMPRESSION: 1. Multiple filling defect in the right pulmonary artery, concerning for pulmonary emboli. 2. The ascending thoracic aorta is ectatic measuring 4.2 cm in maximum diameter. 3. Lung emphysema/ COPD. Findings were discussed with dr. Surya Pike by phone on 02/23/2025 at 6:08 a.m. ATED BY: ANAYA CHAVEZ MD DICTATED DATE/TIME: 02/23/25608 SIGNED BY: ANAYA CHAVEZ MD SIGNED DATE/TIME: 02/23/25608 CC: Images Reviewed?: Images reviewed and evaluated by me (Independent interpretation of chest x-ray: Congestive changes, cardiomegaly) Time of 1ST Reevaluation: 02:45 Reevaluation 1ST: Unchanged Patient Education/Counseling: Other (Need for admission) Family Education/Counseling: No Family Present Departure 1 Departure Time of Disposition: 05:57 Impression: Primary Impression: Shortness of breath Additional Impressions: New onset a-fib Elevated troponin CHF exacerbation Pulmonary embolism Disposition: ADMITTED INPATIENT Condition: Stable Comments 74-year-old female who presents to the emergency department with shortness of b reath, possible new onset AFib. EKG shows no ST changes. Troponin has been stable in the 140's. Possibly secondary to congestive heart failure. Heart rate has been controlled in the low 100's. CT angiogram chest shows multiple pulmonary emboli. Patient admitted to hospitalist service for further treatment, evaluation and monitoring. Extensive evaluation was performed in attempt to identify or rule out: (See differential diagnosis section) The following tests were ordered, and results were reviewed by me and discussed with patient: (See diagnostic results section) The following test were independently interpreted by me: EKG, chest x-ray I reviewed and agreed with the following test results read by other providers: N/A I reviewed the following notes from the pt's past medical encounters: November 29, 2024 and September 23, 2023 encounters for contusions of rib on the side and seizure, respectively Additional information was gathered from interviewing the following independent historians: EMS Decision regarding hospitalization or escalation of hospital level of care: Risks and benefits of admission for further treatment of patient's condition was considered however due to patient's stable condition patient will be discharged to follow up closely or return to care for worsening of condition or inability to follow up. Drug therapy requiring intensive monitoring for toxicity: IV contrast Parenteral controlled substances: N/A Decision regarding elective major surgery with identified patient or procedure risk factors: N/A Decision regarding emergency major surgery: N/A Decision not to resuscitate or to de-escalate care because of poor prognosis: N/A Diagnosis or treatment significantly limited by social determinants of health: N/A Critical Care Note Critical Care Time?: Yes (35 min-critical care time only) Critical care comment: Due to a high probability of clinically significant, life threatening deterioration, the patient required my highest level of preparedness to intervene emergently and I personally spent this critical care time directly and personally managing the patient. This critical care time included obtaining a history; examining the patient; pulse oximetry; ordering and review of studies; arranging urgent treatment with development of a management plan; evaluation of patient's response to treatment; frequent reassessment; and, discussions with other providers. This critical care time was performed to assess and manage the high probability of imminent, life-threatening deterioration that could result in multi-organ failure. It was exclusive of separately billable procedures and treating other patients and teaching time. Please see my other sections and the rest of the note for further information on patient assessment and treatment. Stability Stability form required: No Heart Score Heart Score: Heart Score Response (Comments) Value History N/A 0 EKG N/A 0 Age N/A 0 Risk Factors N/A 0 Troponin N/A 0 Total 0 I personally scribed for CHIQUITA MORALES MD ([email or web address]) on 02/23/25 at 02:33. Electronically submitted by Garth Lau ([email or web address]). I personally scribed for CHIQUITA MORALES MD ([email or web address]) on 02/23/25 at 06:16. Electronically submitted by Garth Lau ([email or web address]). CHIQUITA MORALES MD February 23, 2025 02:33
[2025-02-23 03:08] LABS: Alanine Aminotransferase 11 U/L (7-40); Albumin 4.4 g/dL (3.2-4.8); Alkaline Phosphatase 73 U/L (46-116); Anion Gap 9 (5-15); Aspartate Aminotransferase 16 U/L (13-40); Bilirubin, Total 0.8 mg/dL (0.2-1.0); Blood Urea Nitrogen 15 mg/dL (9-23); Calcium 9.6 mg/dL (8.7-10.4); Carbon Dioxide 22 mmol/L (20-31); Chloride 110 mmol/L (98-107); Glucose 102 mg/dL (74-106); Sodium 141 mmol/L (136-145); Total Protein 6.9 g/dL (5.7-8.2)
[2025-02-23 03:26] LABS: Basophils # (auto) 0 10 ^3/uL (0-0.2); Basophils % (auto) 0.7 % (0.0-2.0); Eosinophils # (auto) 0.2 10 ^3/uL (0-0.8); Eosinophils % (auto) 3.1 % (0.0-7.0); Hemoglobin 15.7 g/dL (12.2-16.2); Lymphocytes # (auto) 1.8 10 ^3/uL (0.4-5.4); Lymphocytes % (auto) 29.5 % (10.0-50.0); Mean Corpuscular Hemoglobin 31.1 pg (28.0-32.0); Mean Corpuscular Hgb Conc. 33.4 g/dL (32.0-36.0); Mean Corpuscular Volume 92.9 fL (80.0-100.0); Monocytes # (auto) 0.4 10 ^3/uL (0-1.3); Monocytes % (auto) 5.9 % (0.0-12.0); Neutrophils # (auto) 3.8 10 ^3/uL (1.6-8.6); Neutrophils % (auto) 60.8 % (37.0-80.0); Nucleated Red Blood Cells % 0.2 %; Platelet Count (auto) 193 10^3/uL (140-450); Red Blood Cells 5.05 10^6/uL (4.0-5.20); Red Cell Distribution Width 15.1 % (11.8-14.3); White Blood Cell 6.2 10^3/uL (4.4-10.8)
[2025-02-23 03:51] LABS: INR 1.04 (0.9-1.15)
[2025-02-23] MEDS: LORazepam 2MG/ML-1ML VIAL IV ONE (03:59)
[2025-02-23 04:41] LABS: COVID19 ANTIGEN SOFIA FIA NEGATIVE (NEGATIVE); Rapid Influenza A Negative (Negative); Rapid Influenza B Negative (Negative)
--- NOTE | 2025-02-23 05:05 | DVH ---
EXAM: XR Chest, 1 View CLINICAL INDICATION: cp TECHNIQUE: Frontal view of the chest. COMPARISON: XY CHEST PORTABLE on DOS: 09/23/23, XY CHEST PORTABLE on DOS: 08/18/23, CHEST PORTABLE o n DOS: 10/17/21 FINDINGS: LUNGS AND PLEURAL SPACES: See below. HEART: Cardiomegaly with mild congestion. MEDIASTINUM: Unremarkable. Normal mediastinal contour. BONES/JOINTS: Unremarkable. No acute fracture. OTHER FINDINGS: . . . IMPRESSION: Cardiomegaly with mild congestion.
[2025-02-23] MEDS: IOHEXOL 350 MG/ML 100ML IJ ONE (05:43)
--- NOTE | 2025-02-23 06:12 | DVH ---
EXAM: CT Angiography Chest With Intravenous Contrast CLINICAL INDICATION: Rule out pulmonary embolism TECHNIQUE: Axial computed tomographic angiography images of the chest with intravenous contrast. Th is CT exam was performed using one or more of the following dose reduction techniques: automated exp osure control, adjustment of the mA and/or kV according to patient size, and/or use of iterative francine nstruction technique. MIP reconstructed images were created and reviewed. CONTRAST: Medical annual 911 now RADIATION DOSE: CTDIvol = 53.28 mGy, DLP = 392.95 mGy-cm COMPARISON: CT ANGIO CHEST CONTRAST on DOS: 10/19/21 FINDINGS: PULMONARY ARTERIES: Multiple filling defect the right pulmonary artery, concerning for pulmonary em boli. AORTA: The ascending thoracic aorta is ectatic measuring 4.2 cm in maximum diameter. No thoracic a ortic aneurysm. LUNGS AND PLEURAL SPACES: Lung emphysema/ COPD. No mass. No consolidation. No significant effusi on. No pneumothorax. HEART: Cardiomegaly. No significant pericardial effusion. No evidence of RV dysfunction. BONES/JOINTS: No acute fracture. No dislocation. SOFT TISSUES: Unremarkable. LYMPH NODES: Unremarkable. No enlarged lymph nodes. OTHER FINDINGS: . . . IMPRESSION: 1. Multiple filling defect in the right pulmonary artery, concerning for pulmonary emboli. 2. The ascending thoracic aorta is ectatic measuring 4.2 cm in maximum diameter. 3. Lung emphysema/ COPD. Findings were discussed with dr. Surya Pike by phone on 02/23/2025 at 6:08 a.m.
[2025-02-23] MEDS ORDERED: HEPARIN SODIUM (PORCINE) 5000 UNITS/ML 1ML VIAL IV ONE (06:15)
--- NOTE | 2025-02-23 06:17 | ECG ---
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
[2025-02-23] MEDS: FUROSEMIDE 20 MG/2 ML VIAL IV ONE (06:32)
[2025-02-23 07:06] LABS: Basophils # (auto) 0 10 ^3/uL (0-0.2); Basophils % (auto) 0.6 % (0.0-2.0); Eosinophils # (auto) 0.2 10 ^3/uL (0-0.8); Eosinophils % (auto) 2.6 % (0.0-7.0); Hematocrit 44.5 % (36.0-46.0); Hemoglobin 14.9 g/dL (12.2-16.2); Lymphocytes # (auto) 2.2 10 ^3/uL (0.4-5.4); Mean Corpuscular Hemoglobin 31.1 pg (28.0-32.0); Mean Corpuscular Hgb Conc. 33.4 g/dL (32.0-36.0); Mean Corpuscular Volume 93.1 fL (80.0-100.0); Monocytes # (auto) 0.3 10 ^3/uL (0-1.3); Monocytes % (auto) 5.5 % (0.0-12.0); Neutrophils # (auto) 3.5 10 ^3/uL (1.6-8.6); Neutrophils % (auto) 56.3 % (37.0-80.0); Platelet Count (auto) 187 10^3/uL (140-450); Red Blood Cells 4.78 10^6/uL (4.0-5.20); White Blood Cell 6.2 10^3/uL (4.4-10.8)
[2025-02-23 07:15] LABS: Urine Bacteria FEW /hpf (None Seen); Urine Blood Negative /uL (Negative); Urine Clarity Clear (Clear); Urine Color Yellow (Yellow); Urine Mucus FEW (None Seen); Urine Protein, UAD 1+ (Negative); Urine Squamous Epithelial Cell FEW /hpf (<5); Urine Urobilinogen Normal (Negative); Urine WBC 8 /HPF (0-5)
[2025-02-23 07:22] LABS: INR 1.11 (0.9-1.15); Prothrombin Time 11.6 sec (9.3-11.8)
[2025-02-23 07:23] LABS: Urine Specific Gravity > 1.050 (1.001-1.035)
[2025-02-23] MEDS: HEPARIN SODIUM (PORCINE) 5000 UNITS/ML 1ML VIAL IV ONE (09:37)
[2025-02-23] MEDS: HEPARIN DRIP/D5W 100UNITS/ML 250 ML IV SCH (09:38)
[2025-02-23] MEDS ORDERED: ONDANSETRON HCL 4 MG/2 ML VIAL IV PRN (09:45)
[2025-02-23] MEDS ORDERED: MORPHINE SULFATE INJ 2 MG/ml SYRG IV PRN (09:45)
[2025-02-23] MEDS ORDERED: ALBUTEROL SULF 2.5 MG/0.5ML(0.5%) NEB SOLN NEB PRN (09:45)
[2025-02-23] MEDS ORDERED: ACETAMINOPHEN 500 MG TAB or CAP PO PRN (09:45)
[2025-02-23] MEDS ORDERED: IPRATROPIUM BROM 0.5 MG/2.5ML INH SOL NEB PRN (09:45)
[2025-02-23] MEDS ORDERED: NITROGLYCERIN 0.4 MG SL TAB SL PRN (09:45)
--- NOTE | 2025-02-23 09:53 | DVHHP2 ---
History of Present Illness Reason for Visit: Chest pain and shortness of breaths History of Present Illness The patient is a 74-year-old female presenting to the emergency room with a reports of shortness of breaths in chest pain with deep inspiration. Patient also reports having pain to her right lower extremity. Other symptoms include severe lethargy. At the time of the assessment, the patient is somewhat difficult to arouse, but is able to follow commands and provide a medical history on the patient. Apparently, the patient has a history of atrial fibrillation, hypertension, CO, previous stent placement, as well as being somewhat noncompliant with her medications as a recent. CT angiogram of the chest reveals multiple areas of right pulmonary embolism. Patient was noted to have elevated troponin, equivocal without any ST changes on EKG. The patient was also found to have severe hypothyroidism with TSH noted to be 94. Cardiovascular: AFIB, CAD, HTN, hyperipidemia Pulmonary: Asthma Past Surgical History: Cholecystectomy Smoke: 1 pack per day ALCOHOL: none Drugs: Marijuana Lives: with Family Review of Systems Constitutional: Yes: Weakness Eyes: No: Pain, Vision change, Conjunctivae inflammation, Eyelid inflammation, Other, Redness ENT: No: Ear pain, Ear discharge, Nose pain, Nose discharge, Nose congestion, Mouth pain, Mouth swelling, Throat pain, Throat swelling, Other Respiratory: Shortness of breath, SOB with excertion, Pleuritic Pain Cardiovascular: No: Chest Pain, Palpitations, Orthopnea, Paroxysmal Noc. Dyspnea, Edema, Lt Headedness, Other Gastrointestinal: No: Nausea, Vomiting, Abdominal Pain, Diarrhea, Constipation, Melena, Hematochezia, Other Musculoskeletal: No: other, neck pain, shoulder pain, arm pain, back pain, hand pain, leg pain, foot pain Skin: No: Rash, Lesions, Jaundice, Bruising, Other Neurological: No: Weakness, Numbness, Incoordination, Change in speech, Confusion, Seizures, Other Allergies: Coded Allergies: Levofloxacin (Verified Allergy, Intermediate, RASH/HIVES, 01/23/19) Medications Current Medications Medications Dose Ordered Sig/Kasandra Route Start Time Stop Time Status Last Admin Dose Admin Heparin Sodium/ Dextrose 250 ml @ 11 mls/hr [id number] IV 02/23/25 07:30 Exam Vital Signs Vital Signs Date Time Temp Pulse Resp B/P (MAP) Pulse Ox O2 Delivery O2 Flow Rate FiO2 02/23/25 08:00 101 02/23/25 08:00 98.2 22 127/84 (98) 89 98.2 02/23/25 07:49 Nasal Cannula* 2 28 General Appearance: Alert, Oriented X3, moderate distress HEENT: Atraumatic, PERRLA Respiratory: Clear to auscultation, Normal air movement Cardiovascular: Normal S1, Normal S2, Other (Atrial fibrillation) Abdominal: Normal bowel sounds, Soft, No tenderness, No hepatospenomegaly Extremities: No clubbing, No cyanosis Neuro: Normal speech Psych/Mental Status: Mental status NL, Mood NL Labs/Xrays Labs Test 02/23/25 06:40 02/23/25 05:19 02/23/25 03:55 02/23/25 02:45 Range/Units White Blood Count 6.2 4.4-10.8 10^3/uL Red Blood Count 4.78 4.0-5.20 10^6/uL Hemoglobin 14.9 12.2-16.2 g/dL Hematocrit 44.5 36.0-46.0 % Mean Corpuscular Volume 93.1 80.0-100.0 fL Mean Corpuscular Hemoglobin 31.1 28.0-32.0 pg Mean Corpuscular Hemoglobin Concent 33.4 32.0-36.0 g/dL Red Cell Distribution Width 15.0 H 11.8-14.3 % Platelet Count 187 140-450 10^3/uL Mean Platelet Volume 8.2 6.9-10.8 fL Neutrophils (%) (Auto) 56.3 37.0-80.0 % Lymphocytes (%) (Auto) 35.0 10.0-50.0 % Monocytes (%) (Auto) 5.5 0.0-12.0 % Eosinophils (%) (Auto) 2.6 0.0-7.0 % Basophils (%) (Auto) 0.6 0.0-2.0 % Neutrophils # (Auto) 3.5 1.6-8.6 10 ^3/uL Lymphocytes # (Auto) 2.2 0.4-5.4 10 ^3/uL Monocytes # (Auto) 0.3 0-1.3 10 ^3/uL Eosinophils # (Auto) 0.2 0-0.8 10 ^3/uL Basophils # (Auto) 0 0-0.2 10 ^3/uL Nucleated Red Blood Cells 0.0 % Prothrombin Time 11.6 9.3-11.8 sec Prothrombin Time INR 1.11 0.9-1.15 Activated Partial Thromboplast Time 33.0 24.5-34.5 SEC Troponin I High Sensitivity 143 *H </=34 ng/L Influenza Type A Antigen Negative Negative Influenza Type B Antigen Negative Negative SARS-CoV-2 Antigen (Rapid) Negative NEGATIVE Urine Color Yellow Yellow Urine Clarity Clear Clear Urine pH 6.0 5.0-9.0 Urine Specific [place] > 1.050 H 1.001-1.035 Urine Protein 1+ H Negative Urine Ketones Negative Negative Urine Blood Negative Negative /uL Urine Nitrite Negative Negative Urine Bilirubin Negative Negative Urine Urobilinogen Normal Negative mg/dL Urine Leukocyte Esterase Negative Negative /uL Urine RBC 4 0 - 4 /hpf Urine Microscopic WBC 8 H 0-5 /HPF Urine Squamous Epithelial Cells Few <5 /hpf Urine Bacteria Few H None Seen /hpf Urine Mucus Few None Seen Urine Glucose Normal Normal mg/dL Test 02/23/25 02:27 Range/Units Sodium Level 141 136-145 mmol/L Potassium Level 4.0 3.5-5.1 mmol/L Chloride Level 110 H 98-107 mmol/L Carbon Dioxide Level 22 20-31 mmol/L Anion Gap 9 5-15 Blood Urea Nitrogen 15 9-23 mg/dL Creatinine 0.88 0.550-1.02 mg/dL Glomerular Filtration Rate Calc 69 >90 mL/min BUN/Creatinine Ratio 17.0 10.0-20.0 Serum Glucose 102 74-106 mg/dL Calcium Level 9.6 8.7-10.4 mg/dL Total Bilirubin 0.8 0.2-1.0 mg/dL Aspartate Amino Transferase (AST) 16 13-40 U/L Alanine Aminotransferase (ALT) 11 7-40 U/L Alkaline Phosphatase 73 46-116 U/L B-Type Natriuretic Peptide 419.03 0-100 pg/mL Total Protein 6.9 5.7-8.2 g/dL Albumin 4.4 3.2-4.8 g/dL Thyroid Stimulating Hormone (TSH) 94.14 H 0.55-4.78 uIU/mL Assessment/Plan Assessment/Plan Impression: -acute hypoxic respiratory failure -acute pulmonary embolism -rule out DVT -history of CAD with stent placement -NSTEMI, probably type 2 -hypothyroidism -history of nicotine in cannabinoid use -primary hypertension -dyslipidemia -medication noncompliance Plan: -admit to telemetry -full dose anticoagulation with Lovenox -IV hydration -thyroid panel -levothyroxine 100 mcg IV daily -echocardiogram -DVT study -check lactic acid level -repeat labs in a.m. Critical care time spent with patient discussing and formulating plan of care: 40 minutes. This does not include time spent performing procedures. This medical document was created using an electronic medical record system with [employer] dictation system. Although this document has been carefully reviewed, there may still be some phonetic and typographical errors. These areas are purely typographical due to imperfections of the software programs, and do not reflect any compromise in the patient's medical care. Plan discussed with: Patient, Other (RN) My Orders Orders - BISI SAUNDERS PHOTOENGRAVING RETOUCHER Procedure Category Date Status Time Admit ADMIT 02/23/25 Transmitted 09:33 Nitroglycerin PHA 02/23/25 Transmitted Sublingual (Ntrostat 09:45 Morphine Sulfate PHA 02/23/25 Transmitted Injection 09:45 Stat Ekg For Chest SAMANTHA 02/23/25 Transmitted Pain 09:33 Notify Md Of Changes [facility] 02/23/25 Transmitted From Base 09:33 Electric Repair Supervisor For [facility] 02/23/25 Transmitted 24 Hours 09:33 Emergency Dysrhythmia [facility] 02/23/25 Transmitted Protocol 09:33 Rhythm Strips Once [facility] 02/23/25 Transmitted Every Shift 09:33 Oxygen By Nasal RT 02/23/25 Transmitted Cannula 09:33 Bilat Lower Dvt US 02/23/25 Transmitted 09:33 Thyroid Panel LAB 02/23/25 Transmitted 09:33 Lactic Acid W/ Reflex LAB 02/23/25 Transmitted Order 09:33 Morphine Sulfate PHA 02/23/25 Transmitted Injection 09:45 Hydrocodone-Acet PHA 02/23/25 Transmitted 5/325mg Tab (Wylie 09:45 Acetaminophen Tab Or PHA 02/23/25 Transmitted Cap (Tylenol Tablet 09:45 Ondansetron Hcl PHA 02/23/25 Transmitted (Zofran) 09:45 Albuterol Medneb PHA 02/23/25 Transmitted (Ventolin Medneb) 09:45 Ipratropium Medneb PHA 02/23/25 Transmitted (Atrovent Medneb) 09:45 Drug Screen LAB 02/23/25 Transmitted 09:33 Enoxaparin Sodium PHA 02/23/25 Transmitted (Lovenox) 10:00 Levothyroxine PHA 02/23/25 Transmitted Injection (Synthroid 10:00 Basic Metabolic Panel LAB 02/24/25 Verified 04:00 Magnesium LAB 02/24/25 Verified 04:00 Complete Blood Count LAB 02/24/25 Verified 04:00 NS PHA 02/23/25 Transmitted 09:45 Cardiac DIET 02/23/25 Transmitted Diet-2gna,Lofat,Lochol Lunch Echo 2d Mode Cardiac US 02/23/25 Transmitted DOP 09:33 Date of Service: February 23, 2025 Billing Provider: BISI SAUNDERS NP Common Visit Codes: 96374-[id number] CARE 30-74 MIN BISI SAUNDERS NP February 23, 2025 09:53
--- NOTE | 2025-02-23 10:19 | DVH ---
US BiLat Lower DVT HISTORY: rule out dvt COMPARISON: None TECHNIQUE: Duplex doppler evaluation of the deep venous system of the lower extremity from the common femoral veins, superficial femoral vein, great saphenous vein, deep femoral vein, popliteal vein, an d calf veins, including color doppler and spectral/pulsed waveform analysis, was performed. FINDINGS: Right: - Common femoral vein: Compressible - Deep femoral vein: Compressible - Femoral vein: Compressible - Popliteal vein: Compressible - Posterior tibial vein: Waveforms present - Peroneal vein: Waveforms present - Other: Nothing Left: - Common femoral vein: Compressible - Deep femoral vein: Compressible - Femoral vein: Compressible - Popliteal vein: Compressible - Posterior tibial vein: Waveforms present - Peroneal vein: Waveforms present - Other: Nothing IMPRESSION: No right or left lower extremity deep venous thrombosis.
[2025-02-23 10:29] LABS: Amphetamine Screen, Urine Pos (NEGATIVE); Barbiturate Scree,Urine Neg (NEGATIVE); Benzodiazephine Screen, Urine Neg (NEGATIVE); Cannabinoid Screen, Urine Pos (NEGATIVE); Cocaine Screen, Urine Neg (NEGATIVE); Opiate Scree,Urine Neg (NEGATIVE)
[2025-02-23 10:30] LABS: Phencyclidine Screen, Urine Neg (NEGATIVE)
[2025-02-23] MEDS: SODIUM CHLORIDE 0.9% 1,000 ML IV ONE (10:42)
[2025-02-23] MEDS ORDERED: hydrALAZINE HCL 20 MG/ML VL IV PRN (10:45)
--- NOTE | 2025-02-23 11:01 | DVHINCON2 ---
Date Seen: February 23, 2025 Referring Physician MD Surya Reason for Consultation Elevated troponin History of Present Illness This is a 74-year-old female who presented to the emergency room via EMS with a chief complaint of shortness of breath. The patient is a very poor historian. She is unaware of medications taking at home, states she lives with her two sons and niece, and a caregiver called Jessica medicate her. Denies following up in the outpatient setting with the primary platen builder up. Upon EMS arrival she was found in an atrial fibrillation rhythm with rapid ventricular rate. Denies any active cardiac symptoms nevertheless she appears to be somewhat withdrawn. She does complaint of lower abdominal pain. A 12 lead electrocardiogram revealed an atrial fibrillation rhythm at 103 bpm evidence of acute changes. Serial troponin levels have remained flat in the 140s bpm. Significant medical history includes coronary artery disease status post PCI to the 1st diagonal branch of the LAD x1 LEONORA on 08/2017 with subsequent coronary angiogram revealing a patent stent on 10/18/2021, unspecified atrial fibrillation, congestive heart failure, moderate mitral annular calcification status post KATHY in 2017, hypertension, dyslipidemia, thyroid disease, COPD/emphysema, seizure activity, and polysubstan ce abuse including methamphetamines. Past Medical History Past medical history reviewed. No other significant than mentioned above. Past Surgical History PCI to the 1st diagonal branch of the LAD x1 LEONORA, 2016 Ventral hernia repair, 2019 Spigelian hernia repair, 2019 IVC filter Family History: Diabetes mellitus 19 CHILD Hypertension G8 MOTHER Family History Family history reviewed. Social History Admits to alcohol, tobacco, and polysubstance use. Allergies: Coded Allergies: Levofloxacin (Verified Allergy, Intermediate, RASH/HIVES, 01/23/19) Home Meds Active Scripts Albuterol Sulfate (Albuterol Sulfate Hfa) 108 Mcg/Act Aer, 108 MCG IN Q2HPRN PRN for 1 Day, AER Prov:MELISSA WHITMAN DO 08/18/23 Potassium Chloride (POTASSIUM CHLORIDE CR) 10 Meq Tb, 10 MEQ PO DAILY, #30 Hold for 5 days Prov:BRYAN HAUSER MD 10/18/21 Reported Medications Dicyclomine Hcl (Dicyclomine Hcl) 20 Mg Tab, 20 MG PO BID for 30 Days, MG 5//20 Carvedilol (COREG) 3.125 Mg Tab, 6.25 MG OR BID, TAB 510/20 Omeprazole (Gnp Omeprazole) 20 Mg Tab, 40 MG PO DAILY, TAB 07/16/19 Famotidine (Famotidine) 20 Mg Tab, 20 MG PO DAILY for 30 Days, MG 07/16/19 Clopidogrel Bisulfate (CLOPIDOGREL) 75 Mg Tab, 1 TAB PO DAILY, #90 TAB 1 Refill 01/24/19 Apixaban Base (ELIQUIS) 5 Mg Tab, 5 MG OR BID for 90 Days, #180 TAB 01/24/19 Furosemide (Furosemide) 40 Mg Tab, 40 MG PO DAILY for 30 Days 01/24/19 Sacubitril-Valsartan (Entresto 24-26 mg) 1 Tab Tab, 1 TAB PO, TAB 01/24/19 Docusate Sodium (Docusate Sodium) 100 Mg Tab, 100 MG PO DAILYP PRN for FOR CONSTIPATION for 30 Days, MG 01/24/19 Spironolactone (Spironolactone) 25 Mg Tab, 1 TAB PO DAILY, #90 TAB 1 Refill 01/24/19 Atorvastatin Calcium (ATORVASTATIN CALCIUM) 80 Mg Tab, 10 MG PO DAILY 04/30/18 Amlodipine Besylate (Amlodipine Besylate) 10 Mg Tab, 10 MG PO DAILY 04/30/18 Home Meds Home medications reviewed. Current Medications Current Medications Medications (Trade) Dose Ordered Sig/Kasandra Route PRN Reason Start Time Stop Time Status Last Admin Heparin Sodium/ Dextrose 250 ml @ 11 mls/hr [id number] IV 02/23/25 07:30 02/23/25 10:24 DC Nitroglycerin (Ntrostat Sublingual) 0.4 mg Q5MINP PRN SL FOR CHEST PAIN 02/23/25 09:45 Morphine Sulfate 2 mg Q30M PRN IV FOR CHEST PAIN 02/23/25 09:45 Morphine Sulfate 1 mg Q4HPRN PRN IV SEVERE PAIN (7-10 PAIN SCALE) 02/23/25 09:45 Acetaminophen/ Hydrocodone Bitart ([place] 5/325MG Tab) 1 tab Q6HPRN PRN PO MODERATE PAIN (4-6 PAIN SCALE) 02/23/25 09:45 Acetaminophen (Tylenol Tablet Or Capsule) 500 mg Q8HP PRN PO PAIN SCALE 1-3 OR TEMP>100.4 02/23/25 09:45 Ondansetron HCl (Zofran) 4 mg Q6HP PRN IV NAUSEA / VOMITING 02/23/25 09:45 Albuterol (Ventolin Medneb) 2.5 mg Q4HPRN PRN NEB SHORTNESS OF BREATH 02/23/25 09:45 Ipratropium [place] (Atrovent Medneb) 0.5 mg Q4HPRN PRN NEB SHORTNESS OF BREATH 02/23/25 09:45 Enoxaparin Sodium (Lovenox) 60 mg Q12HR SC 02/23/25 10:00 UNV Levothyroxine Sodium (Synthroid Injection) 100 mcg DAILY IV 02/23/25 10:00 UNV Review of Systems Constitutional: No symptom reported Ears, Nose, & Throat: No symptom reported Eyes: No symptom reported Neurological: No symptoms reported Pulmonary/Respiratory: SOB Cardiovascular: No symptom reported Gastrointestinal: No symptom reported Genitourinary: No symptom reported Musculoskeletal: No symptom reported Skin: No symptom reported Psychiatric: No symptom reported Endocrine: No symptom reported Hemotologic/Lymphatic: No symptom reported Vital Signs Vital Signs Date Time Temp Pulse Resp B/P (MAP) Pulse Ox O2 Delivery O2 Flow Rate FiO2 02/23/25 10:06 97.5 58 24 198/112 (140) 99 97.5 02/23/25 09:56 Nasal Cannula 2.0 02/23/25 09:56 28 Physical Exam General Appearance: Somehow withdrawn. Very poor historian. In no acute distress Head Exam: Normal inspection Neck Exam: Normal inspection. Normal alignment Pulmonary/Respiratory: Chest non-tender. Crackles to bilateral breath sounds. O2 via NC Cardiovascular/Chest: Regular rate and rhythm. S1, S2. No murmurs. No JVD. Peripheral Pulses: 2+ Radial (R). 2+ Radial (L). 2+ Pedal (R). 2+ Pedal (L) Abdominal Exam: Normal bowel sounds. Soft. Tender to touch Ankle Exam: Negative ankle edema Lower extremities: Negative lower extremity edema Neuro/Mental Status: A&O x3. Coherent but poor historian Thoughts/Psych: Forgetful, very poor historian Appearance: In no acute distress. Somewhat withdrawn Skin Exam: Normal inspection. Normal color. Warm. Dry Labs/Diagnostic Data Labs Test 02/23/25 10:14 02/23/25 06:40 02/23/25 05:19 02/23/25 03:55 Range/Units White Blood Count 6.2 4.4-10.8 10^3/uL Red Blood Count 4.78 4.0-5.20 10^6/uL Hemoglobin 14.9 12.2-16.2 g/dL Hematocrit 44.5 36.0-46.0 % Mean Corpuscular Volume 93.1 80.0-100.0 fL Mean Corpuscular Hemoglobin 31.1 28.0-32.0 pg Mean Corpuscular Hemoglobin Concent 33.4 32.0-36.0 g/dL Red Cell Distribution Width 15.0 H 11.8-14.3 % Platelet Count 187 140-450 10^3/uL Mean Platelet Volume 8.2 6.9-10.8 fL Neutrophils (%) (Auto) 56.3 37.0-80.0 % Lymphocytes (%) (Auto) 35.0 10.0-50.0 % Monocytes (%) (Auto) 5.5 0.0-12.0 % Eosinophils (%) (Auto) 2.6 0.0-7.0 % Basophils (%) (Auto) 0.6 0.0-2.0 % Neutrophils # (Auto) 3.5 1.6-8.6 10 ^3/uL Lymphocytes # (Auto) 2.2 0.4-5.4 10 ^3/uL Monocytes # (Auto) 0.3 0-1.3 10 ^3/uL Eosinophils # (Auto) 0.2 0-0.8 10 ^3/uL Basophils # (Auto) 0 0-0.2 10 ^3/uL Nucleated Red Blood Cells 0.0 % Prothrombin Time 11.6 9.3-11.8 sec Prothrombin Time INR 1.11 0.9-1.15 Activated Partial Thromboplast Time 33.0 24.5-34.5 SEC Troponin I High Sensitivity 143 *H </=34 ng/L Influenza Type A Antigen Negative Negative Influenza Type B Antigen Negative Negative SARS-CoV-2 Antigen (Rapid) Negative NEGATIVE Test 02/23/25 02:45 02/23/25 02:27 Range/Units Urine Color Yellow Yellow Urine Clarity Clear Clear Urine pH 6.0 5.0-9.0 Urine Specific [place] > 1.050 H 1.001-1.035 Urine Protein 1+ H Negative Urine Ketones Negative Negative Urine Blood Negative Negative /uL Urine Nitrite Negative Negative Urine Bilirubin Negative Negative Urine Urobilinogen Normal Negative mg/dL Urine Leukocyte Esterase Negative Negative /uL Urine RBC 4 0 - 4 /hpf Urine Microscopic WBC 8 H 0-5 /HPF Urine Squamous Epithelial Cells Few <5 /hpf Urine Bacteria Few H None Seen /hpf Urine Mucus Few None Seen Urine Glucose Normal Normal mg/dL Urine Opiates Screen Neg NEGATIVE Urine Fentanyl Screen Neg NEGATIVE Urine Barbiturates Screen Neg NEGATIVE Urine Phencyclidine Screen Neg NEGATIVE Urine Amphetamines Screen Pos NEGATIVE Urine Benzodiazepines Screen Neg NEGATIVE Urine Cocaine Screen Neg NEGATIVE Urine Cannabinoids Screen Pos NEGATIVE Sodium Level 141 136-145 mmol/L Potassium Level 4.0 3.5-5.1 mmol/L Chloride Level 110 H 98-107 mmol/L Carbon Dioxide Level 22 20-31 mmol/L Anion Gap 9 5-15 Blood Urea Nitrogen 15 9-23 mg/dL Creatinine 0.88 0.550-1.02 mg/dL Glomerular Filtration Rate Calc 69 >90 mL/min BUN/Creatinine Ratio 17.0 10.0-20.0 Serum Glucose 102 74-106 mg/dL Calcium Level 9.6 8.7-10.4 mg/dL Total Bilirubin 0.8 0.2-1.0 mg/dL Aspartate Amino Transferase (AST) 16 13-40 U/L Alanine Aminotransferase (ALT) 11 7-40 U/L Alkaline Phosphatase 73 46-116 U/L B-Type Natriuretic Peptide 419.03 0-100 pg/mL Total Protein 6.9 5.7-8.2 g/dL Albumin 4.4 3.2-4.8 g/dL Thyroid Stimulating Hormone (TSH) 94.14 H 0.55-4.78 uIU/mL Assessment Atrial fibrillation with rapid ventricular rate, unspecified Acute on chronic decompensated heart failure Acute pulmonary emboli with acute hypoxic respiratory failure NSTEMI likely type 2 secondary to above Coronary artery disease status post PCI of the 1st diagonal branch x1 LEONORA, 2017 Severe hypothyroidism Hypertension Dyslipidemia Presence of IVC filter Polysubstance abuse with methamphetamines Nicotine dependence Medical noncompliance Plan/Recommendation We will continue the following plan/recommendations (Dr. Gutiérrez): * Echocardiogram to evaluate cardiac function * Therapeutic Lovenox. Transition to DOAC when appropriate * [id number] Score 5 points. HAS-BLED Score 2 points * Single-antiplatelet therapy and lipid-lowering agent * Initiate GDMT for CHF and uptitrate as tolerated * Thyroid workup per primary care team * Monitor ECG changes and notify * Mg level Thank you for allowing us to participate in this patient's care. Please call if you have any questions or concerns. Critical care time: 45 min. This medical document was created using an electronic medical record system with voice recognition software and computerized dictation system. Although this document has been carefully reviewed, there might still be some phonetic and typographical errors. Occasional wrong-word or ``sound-alike�� substitutions may have occurred due to the inherent limitations of voice recognition software. These areas are purely typographical due to imperfections of the software programs and do not reflect any compromise in the patient's medical care. Please read the chart carefully and recognize, using context, where these substitutions have occurred. Plan discussed with: Patient, Other NYHA Physical activity limitations: Class3(Marked) ordinary (activity causes symtoms) Date of Service: February 23, 2025 Billing Provider: DARRIUS DOVE Cardiology Common Codes: [id number] CARE 30-74 MIN DARRIUS DOVE February 23, 2025 11:01
[2025-02-23] MEDS: CARVEDILOL 3.125 MG TAB PO ONE (11:25)
[2025-02-23] MEDS: SACUBITRIL-VALSARTAN 24mg/26mg TAB PO ONE (11:26)
[2025-02-23] MEDS: CLOPIDOGREL BISULFATE 75 MG TAB PO ONE (11:26)
[2025-02-23] MEDS: LEVOTHYROXINE SODIUM 100 MCG/5 ML INJ IV SCH (11:32)
[2025-02-23] MEDS: ENOXAPARIN SOD 60 MG/0.6 ML SYRINGE SC ONE (11:43)
[2025-02-23] MEDS: ATORVASTATIN 20 MG TAB PO SCH (22:26)
[2025-02-23] MEDS: CARVEDILOL 3.125 MG TAB PO SCH (22:26)
[2025-02-23] MEDS: SACUBITRIL-VALSARTAN 24mg/26mg TAB PO SCH (22:26)
[2025-02-23] MEDS: ENOXAPARIN SOD 60 MG/0.6 ML SYRINGE SC SCH (22:27)
[2025-02-23] MEDS: HYDROcodone-ACET 5/325MG TAB PO PRN (23:53)
[2025-02-24] VITALS (11 sets, daily range): BP systolic 103–146; BP diastolic 67–102; PULSE 53–106; RESP 16–18; TEMP 97.5–98.7; O2SAT 92–99
[2025-02-24 05:56] LABS: Potassium 3.7 mmol/L (3.5-5.1); Sodium 140 mmol/L (136-145)
[2025-02-24 05:57] LABS: Anion Gap 7 (5-15); Carbon Dioxide 23 mmol/L (20-31)
[2025-02-24 06:00] LABS: Chloride 110 mmol/L (98-107)
[2025-02-24 06:02] LABS: BUN/Creatinine Ratio 18.2 (10.0-20.0); Blood Urea Nitrogen 16 mg/dL (9-23)
[2025-02-24 06:09] LABS: Basophils # (auto) 0.1 10 ^3/uL (0-0.2); Eosinophils # (auto) 0.2 10 ^3/uL (0-0.8); Eosinophils % (auto) 3.4 % (0.0-7.0); Hematocrit 51.6 % (36.0-46.0); Hemoglobin 17.6 g/dL (12.2-16.2); Lymphocytes # (auto) 2.1 10 ^3/uL (0.4-5.4); Lymphocytes % (auto) 37.8 % (10.0-50.0); Mean Corpuscular Hemoglobin 31.1 pg (28.0-32.0); Mean Corpuscular Hgb Conc. 34.1 g/dL (32.0-36.0); Mean Corpuscular Volume 91.4 fL (80.0-100.0); Monocytes # (auto) 0.4 10 ^3/uL (0-1.3); Monocytes % (auto) 7.2 % (0.0-12.0); Neutrophils # (auto) 2.8 10 ^3/uL (1.6-8.6); Neutrophils % (auto) 50.6 % (37.0-80.0); Nucleated Red Blood Cells % 0.2 %; Platelet Count (auto) 206 10^3/uL (140-450); Red Blood Cells 5.64 10^6/uL (4.0-5.20); Red Cell Distribution Width 14.6 % (11.8-14.3); White Blood Cell 5.6 10^3/uL (4.4-10.8)
[2025-02-24 06:13] LABS: Glucose 120 mg/dL (74-106)
[2025-02-24 06:14] LABS: Calcium 9.7 mg/dL (8.7-10.4)
--- NOTE | 2025-02-24 07:53 | DVHSR ---
APPROVED REPORT EXAM: Two-dimensional and M-mode echocardiogram with Doppler and color Doppler. Blood Pressure: 127/138 mmHg INDICATION NSTEMI, PE, ? RV STRAIN RISK FACTORS Height: 5'2, Weight: 138 DIMENSIONS LVDd3.9 (3.8-5.7cm)LA (2D)7.0 (1.9-4.0cm)Aortic Root4.0 (2.0-3.7cm) LVDs3.0 (2.5-4.0cm)LA (MM) (1.9-4.0cm)Aortic Cusp Exc0.8 (1.5-2.0cm) EF (%) 50.0 (55-70%)Rt. Atrium3.7 (1.9-4.0cm)Asc. Aorta4.0 cm IVSd1.5 (0.7-1.1cm)RV (D)3.4 (1.8-2.4cm) PWd1.0 (0.7-1.1cm) Mitral Valve MitralMitral Stenosis E wave1.12m/sMV Mean GR.3mmHg A wavem/sMV Peak GR.163mmHg E/A ratio0.02D MVAcm2 DECEL [id number] 1/2 Timems Aortic Valve Aortic ValveAortic Stenosis V10.96m/Manuel Mean GR.7mmHg V21.71m/Manuel Peak GR.12mmHg LVOT Diameter1.9 (1.8-2.4cm)Doppler AVA1.59cm2 AI P 1/2 Dpwg380.00ms Pulmonic Valve V21.14m/s Tricuspid Valve TR Velocity2.55m/s [id number] Other Information Technically limited study due to patient moving, trying to take probe and ekg off Conclusion lvef 50% by visual estimate moderate LVH RV Not well seen severe massive left atrium dilatation Rigth atrium enlarged severe aortic regurg, moderate sclerosis noted severe mitral regurg Mitrall stenosis mild to moderate moderate tricuspid regurg
[2025-02-24 08:07] LABS: Free Thyroxine Index 0.6 (1.2-4.9); Thyroxine (T4) 2.5 ug/dL (4.5-12.0)
[2025-02-24] MEDS: CLOPIDOGREL BISULFATE 75 MG TAB PO SCH (09:08)
[2025-02-24] MEDS: EMPAGLIFLOZIN 10 MG TAB PO SCH (09:09)
--- NOTE | 2025-02-24 09:37 | DVHPN2 ---
Consult Progress Note Date Seen: February 24, 2025 Subjective Patient reports: Feels better Review of Systems: CVS:Normal, RESPIRATORY:Normal, NEURO:Normal Other Systems: States feeling better. Denies any cardiac symptoms Objective vital signs Vital Sign Date Time Temp Pulse Resp B/P (MAP) Pulse Ox O2 Delivery O2 Flow Rate FiO2 02/24/25 09:08 89 119/75 02/24/25 08:00 96 Nasal Cannula* 2 28 02/24/25 05:00 98.1 18 98.1 Total Intake and Output 02/23/25 02/23/25 02/24/25 14:59 22:59 06:59 Intake Total 300 ml 150 ml 175 ml Balance 300 ml 150 ml 175 ml medications Current Medications Medications Dose Ordered Sig/Kasandra Route Start Time Stop Time Status Last Admin Dose Admin Nitroglycerin 0.4 mg Q5MINP PRN SL 02/23/25 09:45 Morphine Sulfate 2 mg Q30M PRN IV 02/23/25 09:45 Morphine Sulfate 1 mg Q4HPRN PRN IV 02/23/25 09:45 Acetaminophen/ Hydrocodone Bitart 1 tab Q6HPRN PRN PO 02/23/25 09:45 02/23/25 23:53 1 TAB Acetaminophen 500 mg Q8HP PRN PO 02/23/25 09:45 Ondansetron HCl 4 mg Q6HP PRN IV 02/23/25 09:45 Albuterol 2.5 mg Q4HPRN PRN NEB 02/23/25 09:45 Ipratropium [place] 0.5 mg Q4HPRN PRN NEB 02/23/25 09:45 Enoxaparin Sodium 60 mg Q12HR SC 02/23/25 22:00 02/24/25 09:09 60 MG Levothyroxine Sodium 100 mcg DAILY IV 02/23/25 10:00 02/24/25 09:07 100 MCG Clopidogrel Bisulfate 75 mg DAILY PO 02/24/25 10:00 02/24/25 09:08 75 MG Atorvastatin Calcium 40 mg HS PO 02/23/25 22:00 02/23/25 22:26 40 MG Carvedilol 6.25 mg Q12HR PO 02/23/25 22:00 02/24/25 09:08 6.25 MG Sacubitril/ Valsartan 2 tab BID PO 02/23/25 22:00 02/24/25 09:09 2 TAB Hydralazine HCl 10 mg Q6HP PRN IV 02/23/25 10:45 Empaglifozin 10 mg DAILY PO 02/24/25 10:00 02/24/25 09:09 10 MG Examination: LUNGS:Normal, CVS:Abnormal (A-fib with intermittent RVR), NEURO:Normal (More lucid ) laboratory and microbiology Laboratory Tests 02/24/25 05:26 Test 02/24/25 05:26 Range/Units Serum Glucose 120 H 74-106 mg/dL Problem List/Assessment/Plan Problem List/Assessment/Plan Atrial fibrillation with rapid ventricular rate, unspecified Acute on chronic decompensated HFpEF Acute pulmonary emboli with acute hypoxic respiratory failure NSTEMI likely type 2 secondary to above Coronary artery disease status post PCI of the 1st diagonal branch x1 [place], 2016 Severe aortic/mitral regurgitation Severe hypothyroidism Hypertension Dyslipidemia Presence of IVC filter Polysubstance abuse with methamphetamines Nicotine dependence Medical noncompliance Plan/Recommendation (Dr. Gutiérrez) * Echocardiogram revealed LVEF of 50% * Severe massive left atrial dilatation. Severe aortic/mitral regurgitation * Therapeutic Lovenox. Transition to DOAC when appropriate * [id number] Score 5 points. HAS-BLED Score 2 points * Single-antiplatelet therapy and lipid-lowering agent * Continue GDMT for CHF and uptitrate as tolerated * Replete electrolytes, potassium >4 and Mg >2 * Thyroid workup per primary care team * Monitor ECG changes and notify Strongly advised of drug abuse and nicotine cessation. Recommend follow-up with a primary crew trainer within 1-2 weeks post-discharge. Kindly call if in need to continue following up. Thank you for allowing us to participate in this patient's care. This medical document was created using an electronic medical record system with voice recognition software and computerized dictation system. Although this document has been carefully reviewed, there might still be some phonetic and typographical errors. Occasional wrong-word or ``sound-alike�� substitutions may have occurred due to the inherent limitations of voice recognition software. These areas are purely typographical due to imperfections of the software programs and do not reflect any compromise in the patient's medical care. Please read the chart carefully and recognize, using context, where these substitutions have occurred. Plan discussed with: Patient, Other Date of Service: February 24, 2025 Billing Provider: DARRIUS DOVE Cardiology Common Codes: [id number] INP/OBS CARE(Mod) DARRIUS DOVE February 24, 2025 09:37
[2025-02-24] MEDS: MAGNESIUM OXIDE 400 MG TAB PO SCH (11:39)
[2025-02-24] MEDS: POTASSIUM EFFERVESENT TAB 25 MEQ PO ONE (11:39)
--- NOTE | 2025-02-24 13:24 | DVHPN2 ---
Subjective Patient states that she still has some shortness of breath. Reviewed: Care Plan, H&P, Labs, Medications, Previous Orders Changes from previous H/P or p: No Changes General: Per HPI Eyes: No Pain, No Vision change, No Conjunctivae inflammation, No Eyelid inflammation, No Other, No Redness ENT: No Ear pain, No Ear discharge, No Nose pain, No Nose discharge, No Nose congestion, No Mouth pain, No Mouth swelling, No Throat pain, No Throat swelling, No Other Cardiovascular: No Chest Pain, No Palpitations, No Orthopnea, No Paroxysmal Noc. Dyspnea, No Edema, No Lt Headedness, No Other Respiratory: Shortness of breath, SOB with excertion, Pleuritic Pain Gastrointestinal: No Nausea, No Vomiting, No Abdominal Pain, No Diarrhea, No Constipation, No Melena, No Hematochezia, No Other Musculoskeletal: No other, No neck pain, No shoulder pain, No arm pain, No back pain, No hand pain, No leg pain, No foot pain Skin: No Rash, No Lesions, No Jaundice, No Bruising, No Other Objective Vitals Vital Signs Date Time Temp Pulse Resp B/P (MAP) Pulse Ox O2 Delivery O2 Flow Rate FiO2 02/24/25 09:08 89 119/75 02/24/25 09:00 98.1 17 94 98.1 02/24/25 08:00 Nasal Cannula* 2 28 Intake/Output Intake and Output 02/24/25 07:00 Intake Total 625 ml Balance 625 ml Intake Oral 175 ml IV Total 450 ml General Appearance: Alert, Oriented X3, Cooperative, No acute distress HEENT: Atraumatic, PERRLA Lungs: Clear to auscultation, Normal air movement Cardiovascular: Normal S1, Normal S2 Abdomen: Normal bowel sounds, Soft, No tenderness, No hepatospenomegaly, No masses Musculoskeletal: Normal sensory function, Normal motor function Skin: Dry, Intact Psych/Mental Status: Mental status NL, Mood NL Medications Current Medications Medications Dose Ordered Sig/Kasandra Route Start Time Stop Time Status Last Admin Dose Admin Nitroglycerin 0.4 mg Q5MINP PRN SL 02/23/25 09:45 Morphine Sulfate 2 mg Q30M PRN IV 02/23/25 09:45 Morphine Sulfate 1 mg Q4HPRN PRN IV 02/23/25 09:45 Acetaminophen/ Hydrocodone Bitart 1 tab Q6HPRN PRN PO 02/23/25 09:45 02/23/25 23:53 1 TAB Acetaminophen 500 mg Q8HP PRN PO 02/23/25 09:45 Ondansetron HCl 4 mg Q6HP PRN IV 02/23/25 09:45 Albuterol 2.5 mg Q4HPRN PRN NEB 02/23/25 09:45 Ipratropium [place] 0.5 mg Q4HPRN PRN NEB 02/23/25 09:45 Clopidogrel Bisulfate 75 mg DAILY PO 02/24/25 10:00 02/24/25 09:08 75 MG Atorvastatin Calcium 40 mg HS PO 02/23/25 22:00 02/23/25 22:26 40 MG Carvedilol 6.25 mg Q12HR PO 02/23/25 22:00 02/24/25 09:08 6.25 MG Sacubitril/ Valsartan 2 tab BID PO 02/23/25 22:00 02/24/25 09:09 2 TAB Hydralazine HCl 10 mg Q6HP PRN IV 02/23/25 10:45 Empaglifozin 10 mg DAILY PO 02/24/25 10:00 02/24/25 09:09 10 MG Magnesium Oxide 400 mg DAILY PO 02/24/25 10:00 02/24/25 11:39 400 MG Levothyroxine Sodium 200 mcg QAM@0600 PO 02/25/25 06:00 UNV Apixaban 10 mg BID PO 02/24/25 22:00 03/03/25 21:59 UNV Apixaban 5 mg BID PO 02/24/25 22:00 UNV Laboratory Results Laboratory Tests 02/24/25 05:26 Chemistry Test 02/24/25 05:26 Calcium Level 9.7 mg/dL (8.7-10.4) Magnesium Level 2.0 mg/dL (1.6-2.6) Urinalysis Test 02/23/25 02:45 Urine Color Yellow (Yellow) Urine Clarity Clear (Clear) Urine pH 6.0 (5.0-9.0) Urine Specific [place] > 1.050 (1.001-1.035) Urine Protein 1+ (Negative) H Urine Ketones Negative (Negative) Urine Blood Negative /uL (Negative) Urine Nitrite Negative (Negative) Urine Bilirubin Negative (Negative) Urine Urobilinogen Normal mg/dL (Negative) Urine Leukocyte Esterase Negative /uL (Negative) Urine RBC 4 /hpf (0 - 4) Urine Microscopic WBC 8 /HPF (0-5) H Urine Squamous Epithelial Cells Few /hpf (<5) Urine Bacteria Few /hpf (None Seen) H Urine Mucus Few (None Seen) Urine Glucose Normal mg/dL (Normal) Labs and/or images reviewed: Labs reviewed by me, Image(s) reviewed by me Assessment/Plan Assessment/Plan Impression: -acute hypoxic respiratory failure -acute pulmonary embolism -rule out DVT -history of CAD with stent placement -NSTEMI, probably type 2 -hypothyroidism -history of nicotine in cannabinoid use , amphetamine use -primary hypertension -dyslipidemia -medication noncompliance Plan: Events: No events overnight. Echocardiogram reviewed. No RV strain. Severely dilated left and right atrium. Normal ejection fraction. -transitioned from Lovenox to Eliquis this evening. -DVT study negative -thyroid panel reviewed. Increase thyroid supplementation to 200 mcg p.o. starting in the a.m. -Lifestyle modification education: Patient instructed on the need to abstain from using illicit drugs given findings of pulmonary embolism. Patient verbalized understanding. -repeat labs in a.m. Total time spent with patient discussing and formulating plan of care: 35 minutes. Total time spent with patient and family regarding advance care plannin minutes. This medical document was created using an electronic medical record system with [employer] dictation system. Although this document has been carefully reviewed, there may still be some phonetic and typographical errors. These areas are purely typographical due to imperfections of the software programs, and do not reflect any compromise in the patient's medical care. Plan discussed with: Patient, Other (RN) My Orders Orders - BISI SAUNDERS CUSTOMER SERVICER Procedure Category Date Status Time Hepatitis C Antibody LAB 02/24/25 In Process 00:43 Basic Metabolic Panel LAB 02/25/25 Verified 04:00 Thyroid Stimulating LAB 02/25/25 Verified Hormone 04:00 Levothyroxine Tablet PHA 02/25/25 Logged (Synthroid Tablet) 06:00 Apixaban (Eliquis) PHA 02/24/25 Logged 22:00 Apixaban (Eliquis) PHA 02/24/25 Logged 22:00 Date of Service: February 24, 2025 Billing Provider: BISI SAUNDERS NP Common Visit Codes: [id number] INP/OBS CARE(HIGH) Secondary Visit Codes: [id number] CARE PLAN 30 MINUTES BISI SAUNDERS NP February 24, 2025 13:24
[2025-02-24] MEDS: APIXABAN 5 MG TAB PO SCH (21:30)
[2025-02-25] VITALS (11 sets, daily range): BP systolic 92–123; BP diastolic 52–78; PULSE 57–120; RESP 15–20; TEMP 96.2–98.4; O2SAT 94–99
[2025-02-25] MEDS: LEVOTHYROXINE SODIUM 100 MCG TAB PO SCH (06:20)
[2025-02-25 07:51] LABS: Calcium 9.1 mg/dL (8.7-10.4); Chloride 105 mmol/L (98-107); Potassium 4.1 mmol/L (3.5-5.1); Sodium 137 mmol/L (136-145)
[2025-02-25 07:52] LABS: Anion Gap 8 (5-15); Carbon Dioxide 24 mmol/L (20-31)
[2025-02-25 07:57] LABS: BUN/Creatinine Ratio 19.7 (10.0-20.0); Blood Urea Nitrogen 23 mg/dL (9-23); Glucose 98 mg/dL (74-106)
--- NOTE | 2025-02-25 14:35 | DVHPN2 ---
Subjective Patient states that she still has some shortness of breath. Reviewed: Care Plan, H&P, Labs, Medications, Previous Orders Changes from previous H/P or p: No Changes General: Per HPI Eyes: No Pain, No Vision change, No Conjunctivae inflammation, No Eyelid inflammation, No Other, No Redness ENT: No Ear pain, No Ear discharge, No Nose pain, No Nose discharge, No Nose congestion, No Mouth pain, No Mouth swelling, No Throat pain, No Throat swelling, No Other Cardiovascular: No Chest Pain, No Palpitations, No Orthopnea, No Paroxysmal Noc. Dyspnea, No Edema, No Lt Headedness, No Other Respiratory: Shortness of breath, SOB with excertion, Pleuritic Pain Gastrointestinal: No Nausea, No Vomiting, No Abdominal Pain, No Diarrhea, No Constipation, No Melena, No Hematochezia, No Other Musculoskeletal: No other, No neck pain, No shoulder pain, No arm pain, No back pain, No hand pain, No leg pain, No foot pain Skin: No Rash, No Lesions, No Jaundice, No Bruising, No Other Objective Vitals Vital Signs Date Time Temp Pulse Resp B/P (MAP) Pulse Ox O2 Delivery O2 Flow Rate FiO2 02/25/25 13:00 96.2 77 17 123/78 (93) 97 96.2 02/25/25 07:34 Room Air* 0 21 Intake/Output Intake and Output 02/25/25 07:00 Intake Total 520 ml Balance 520 ml Intake Oral 520 ml # Voids 1 General Appearance: Alert, Oriented X3, Cooperative, No acute distress HEENT: Atraumatic, PERRLA Lungs: Clear to auscultation, Normal air movement Cardiovascular: Normal S1, Normal S2 Abdomen: Normal bowel sounds, Soft, No tenderness, No hepatospenomegaly, No masses Musculoskeletal: Normal sensory function, Normal motor function Skin: Dry, Intact Psych/Mental Status: Mental status NL, Mood NL Medications Current Medications Medications Dose Ordered Sig/Kasandra Route Start Time Stop Time Status Last Admin Dose Admin Nitroglycerin 0.4 mg Q5MINP PRN SL 02/23/25 09:45 Morphine Sulfate 2 mg Q30M PRN IV 02/23/25 09:45 Morphine Sulfate 1 mg Q4HPRN PRN IV 02/23/25 09:45 Acetaminophen/ Hydrocodone Bitart 1 tab Q6HPRN PRN PO 02/23/25 09:45 02/24/25 17:01 1 TAB Acetaminophen 500 mg Q8HP PRN PO 02/23/25 09:45 Ondansetron HCl 4 mg Q6HP PRN IV 02/23/25 09:45 Albuterol 2.5 mg Q4HPRN PRN NEB 02/23/25 09:45 Ipratropium [place] 0.5 mg Q4HPRN PRN NEB 02/23/25 09:45 Clopidogrel Bisulfate 75 mg DAILY PO 02/24/25 10:00 02/25/25 09:40 75 MG Atorvastatin Calcium 40 mg HS PO 02/23/25 22:00 02/24/25 21:31 40 MG Carvedilol 6.25 mg Q12HR PO 02/23/25 22:00 02/24/25 21:31 6.25 MG Sacubitril/ Valsartan 2 tab BID PO 02/23/25 22:00 02/25/25 09:40 2 TAB Hydralazine HCl 10 mg Q6HP PRN IV 02/23/25 10:45 Empaglifozin 10 mg DAILY PO 02/24/25 10:00 02/25/25 09:40 10 MG Magnesium Oxide 400 mg DAILY PO 02/24/25 10:00 02/25/25 09:41 400 MG Levothyroxine Sodium 200 mcg QAM@0600 PO 02/25/25 06:00 02/25/25 06:20 200 MCG Apixaban 10 mg BID PO 02/24/25 22:00 03/03/25 10:01 02/25/25 09:40 10 MG Apixaban 5 mg BID PO 03/03/25 22:00 Lorazepam 1 mg Q8HP PRN IV 02/25/25 12:15 Laboratory Results Laboratory Tests 02/24/25 05:26 02/25/25 07:05 Chemistry Test 02/25/25 07:05 Calcium Level 9.1 mg/dL (8.7-10.4) HgA1c, TSH Test 02/25/25 07:05 Thyroid Stimulating Hormone (TSH) 70.05 uIU/mL (0.55-4.78) H Urinalysis Test 02/23/25 02:45 Urine Color Yellow (Yellow) Urine Clarity Clear (Clear) Urine pH 6.0 (5.0-9.0) Urine Specific [place] > 1.050 (1.001-1.035) Urine Protein 1+ (Negative) H Urine Ketones Negative (Negative) Urine Blood Negative /uL (Negative) Urine Nitrite Negative (Negative) Urine Bilirubin Negative (Negative) Urine Urobilinogen Normal mg/dL (Negative) Urine Leukocyte Esterase Negative /uL (Negative) Urine RBC 4 /hpf (0 - 4) Urine Microscopic WBC 8 /HPF (0-5) H Urine Squamous Epithelial Cells Few /hpf (<5) Urine Bacteria Few /hpf (None Seen) H Urine Mucus Few (None Seen) Urine Glucose Normal mg/dL (Normal) Labs and/or images reviewed: Labs reviewed by me, Image(s) reviewed by me Assessment/Plan Assessment/Plan Impression: -acute hypoxic respiratory failure -acute pulmonary embolism -rule out DVT -history of CAD with stent placement -NSTEMI, probably type 2 -hypothyroidism -history of nicotine in cannabinoid use , amphetamine use -primary hypertension -dyslipidemia -medication noncompliance Plan: Events: Patient reporting subjective shortness of breath despite no noted hypoxia., possible anxiety from drug withdrawal. -continue Eliquis, single antiplatelet therapy with Plavix for recent history of stent placement Continue thyroid supplementation -Lifestyle modification education: Patient instructed on the need to abstain from using illicit drugs given findings of pulmonary embolism. Patient verbalized understanding. -repeat labs in a.m. Total time spent with patient discussing and formulating plan of care: 35 minutes. This medical document was created using an electronic medical record system with [employer] dictation system. Although this document has been carefully reviewed, there may still be some phonetic and typographical errors. These areas are purely typographical due to imperfections of the software programs, and do not reflect any compromise in the patient's medical care. Plan discussed with: Patient, Other (RN) My Orders Orders - BISI SAUNDERS NP Procedure Category Date Status Time Lorazepam 2mg/Ml Inj PHA 02/25/25 In Process (Ativan Inj) 12:15 Date of Service: February 25, 2025 Billing Provider: BISI SAUNDERS NP Common Visit Codes: [id number] INP/OBS CARE(HIGH) BISI SAUNDERS NP February 25, 2025 14:35
[2025-02-26] VITALS (12 sets, daily range): BP systolic 100–129; BP diastolic 51–76; PULSE 54–106; RESP 16–18; TEMP 35.8; O2SAT 93–99
[2025-02-26 06:59] LABS: Hematocrit 51.6 % (36.0-46.0); Hemoglobin 17.3 g/dL (12.2-16.2)
[2025-02-26 07:19] LABS: Chloride 106 mmol/L (98-107); Potassium 4.1 mmol/L (3.5-5.1); Sodium 139 mmol/L (136-145)
[2025-02-26 07:20] LABS: Anion Gap 10 (5-15); Calcium 10.1 mg/dL (8.7-10.4); Carbon Dioxide 23 mmol/L (20-31)
[2025-02-26 07:25] LABS: BUN/Creatinine Ratio 30.8 (10.0-20.0)
[2025-02-26 07:28] LABS: Blood Urea Nitrogen 33 mg/dL (9-23); Glucose 123 mg/dL (74-106)
[2025-02-26] MEDS ORDERED: APIX5TAB PO (15:14)
[2025-02-26] MEDS ORDERED: LEVO150T10 PO (15:14)
--- NOTE | 2025-02-26 15:28 | DVHDS2 ---
Discharge Summary Date of Admission February 23, 2025 at 09:33 Date of Discharge: February 26, 2025 Admitting Diagnosis Acute pulmonary embolism Labs/Diagnostic Data: Laboratory Results Test 02/26/25 06:34 02/24/25 05:26 02/23/25 10:14 02/23/25 06:40 Hemoglobin 17.3 g/dL (12.2-16.2) Hematocrit 51.6 % (36.0-46.0) Sodium Level 139 mmol/L (136-145) Potassium Level 4.1 mmol/L (3.5-5.1) Chloride Level 106 mmol/L (98-107) Carbon Dioxide Level 23 mmol/L (20-31) Anion Gap 10 (5-15) Blood Urea Nitrogen 33 mg/dL (9-23) Creatinine 1.07 mg/dL (0.550-1.02) Glomerular Filtration Rate Calc 55 mL/min (>90) BUN/Creatinine Ratio 30.8 (10.0-20.0) Serum Glucose 123 mg/dL (74-106) Calcium Level 10.1 mg/dL (8.7-10.4) Thyroid Stimulating Hormone (TSH) 60.58 uIU/mL (0.55-4.78) White Blood Count 5.6 10^3/uL (4.4-10.8) Red Blood Count 5.64 10^6/uL (4.0-5.20) Mean Corpuscular Volume 91.4 fL (80.0-100.0) Mean Corpuscular Hemoglobin 31.1 pg (28.0-32.0) Mean Corpuscular Hemoglobin Concent 34.1 g/dL (32.0-36.0) Red Cell Distribution Width 14.6 % (11.8-14.3) Platelet Count 206 10^3/uL (140-450) Mean Platelet Volume 8.5 fL (6.9-10.8) Neutrophils (%) (Auto) 50.6 % (37.0-80.0) Lymphocytes (%) (Auto) 37.8 % (10.0-50.0) Monocytes (%) (Auto) 7.2 % (0.0-12.0) Eosinophils (%) (Auto) 3.4 % (0.0-7.0) Basophils (%) (Auto) 1.0 % (0.0-2.0) Neutrophils # (Auto) 2.8 10 ^3/uL (1.6-8.6) Lymphocytes # (Auto) 2.1 10 ^3/uL (0.4-5.4) Monocytes # (Auto) 0.4 10 ^3/uL (0-1.3) Eosinophils # (Auto) 0.2 10 ^3/uL (0-0.8) Basophils # (Auto) 0.1 10 ^3/uL (0-0.2) Nucleated Red Blood Cells 0.2 % Magnesium Level 2.0 mg/dL (1.6-2.6) Hepatitis C Antibody Negative (Negative) Lactic Acid Level 1.7 mmol/L (0.4-2.0) Free Thyroxine Index 0.6 (1.2-4.9) Thyroxine (T4) 2.5 ug/dL (4.5-12.0) Triiodothyronine (T3) Uptake 22 % (24-39) Prothrombin Time 11.6 sec (9.3-11.8) Prothrombin Time INR 1.11 (0.9-1.15) Activated Partial Thromboplast Time 33.0 SEC (24.5-34.5) Test 02/23/25 05:19 02/23/25 03:55 02/23/25 02:45 02/23/25 02:27 Troponin I High Sensitivity 143 ng/L (</=34) Influenza Type A Antigen Negative (Negative) Influenza Type B Antigen Negative (Negative) SARS-CoV-2 Antigen (Rapid) Negative (NEGATIVE) Urine Color Yellow (Yellow) Urine Clarity Clear (Clear) Urine pH 6.0 (5.0-9.0) Urine Specific [place] > 1.050 (1.001-1.035) Urine Protein 1+ (Negative) Urine Ketones Negative (Negative) Urine Blood Negative /uL (Negative) Urine Nitrite Negative (Negative) Urine Bilirubin Negative (Negative) Urine Urobilinogen Normal mg/dL (Negative) Urine Leukocyte Esterase Negative /uL (Negative) Urine RBC 4 /hpf (0 - 4) Urine Microscopic WBC 8 /HPF (0-5) Urine Squamous Epithelial Cells Few /hpf (<5) Urine Bacteria Few /hpf (None Seen) Urine Mucus Few (None Seen) Urine Glucose Normal mg/dL (Normal) Urine Opiates Screen Neg (NEGATIVE) Urine Fentanyl Screen Neg (NEGATIVE) Urine Barbiturates Screen Neg (NEGATIVE) Urine Phencyclidine Screen Neg (NEGATIVE) Urine Amphetamines Screen Pos (NEGATIVE) Urine Benzodiazepines Screen Neg (NEGATIVE) Urine Cocaine Screen Neg (NEGATIVE) Urine Cannabinoids Screen Pos (NEGATIVE) Total Bilirubin 0.8 mg/dL (0.2-1.0) Aspartate Amino Transferase (AST) 16 U/L (13-40) Alanine Aminotransferase (ALT) 11 U/L (7-40) Alkaline Phosphatase 73 U/L (46-116) B-Type Natriuretic Peptide 419.03 pg/mL (0-100) Total Protein 6.9 g/dL (5.7-8.2) Albumin 4.4 g/dL (3.2-4.8) Other Laboratory Tests 02/26/25 06:34 02/24/25 05:26 Brief Hx & Hospital Course: History of Present Illness The patient is a 74-year-old female presenting to the emergency room with a reports of shortness of breaths in chest pain with deep inspiration. Patient also reports having pain to her right lower extremity. Other symptoms include severe lethargy. At the time of the assessment, the patient is somewhat difficult to arouse, but is able to follow commands and provide a medical history on the patient. Apparently, the patient has a history of atrial fibrillation, hypertension, [place], previous stent placement, as well as being somewhat noncompliant with her medications as a recent. CT angiogram of the chest reveals multiple areas of right pulmonary embolism. Patient was noted to have elevated troponin, equivocal without any ST changes on EKG. The patient was also found to have severe hypothyroidism with TSH noted to be 94. Course of hospitalization: Patient was started on full-dose anticoagulation with Lovenox. After echocardiogram was obtained that did not display any type of RV strain, patient was switched to Eliquis. Patient was also found to have severe hypothyroidism, for which has improved with IV supplementation, which was also switched to 200 mcg p.o. daily. Patient's UDS was positive for cannabinoids as well as amphetamines. Lifestyle modification education was given to the patient, 10 minutes spent with her discussing the need to be abstain from smoking nicotine and other illicit drugs. Patient verbalized understanding. Patient will be discharged home and follow up with her PCP in 1-2 weeks. She will be continued on anticoagulation with Eliquis 10 mg p.o. twice a day to complete a full seven day course, which will be switched to 5 mg p.o. twice a day. Given her history of CAD with stent placement she will continue with single platelet therapy with Plavix. Patient will also have her levothyroxine prescription renewed at 150 micrograms/minute. Patient was agreeable with discharge plan. All questions answered. Physical examination General: Alert and Oriented x3. No acute distress. Well-nourished. Eyes: EOMI. Anicteric. HENT: Moist mucous membranes. Lungs: Clear to auscultation bilaterally. No accessory muscle use. Cardiovascular: Regular rate and rhythm. No murmur. No JVD. Abdomen: Soft, non-tender and non-distended. No palpable masses. Extremities: No edema. Non-tender. Skin: No rashes or lesions. Warm. Neurologic: No focal neurological deficits. CN II-XII grossly intact, but not individually tested. Psychiatric: Cooperative. Appropriate mood and affect. Total time spent with patient discussing and formulating plan of care: 35 minutes. This medical document was created using an electronic medical record system with [employer] dictation system. Although this document has been carefully reviewed, there may still be some phonetic and typographical errors. These areas are purely typographical due to imperfections of the software programs, and do not reflect any compromise in the patient's medical care. Consults/Reason for consult Cardiology: Acute pulmonary embolism Condition at Discharge: Poor Final Diagnosis/Problems List Acute pulmonary embolus Secondary diagnosis: -acute hypoxic respiratory failure -acute pulmonary embolism -rule out DVT -history of CAD with stent placement -NSTEMI, probably type 2 -hypothyroidism -history of nicotine in cannabinoid use , amphetamine use -primary hypertension -dyslipidemia -medication noncompliance Discharge Disposition: Home Discharge Instruct/Medications Diet: Regular Activity: No Restrictions, As Tolerated Follow Up/Referral: Follow up with PCP, Dr. Soto in one week Medications: Levothyroxine 150 mcg p.o. daily Eliquis 10 mg p.o. b.i.d. for a total seven day course which was started in the hospital. Then switch to 5 mg p.o. b.i.d. -continue all medications per medication reconciliation 36 Discharge Statement: "Patient was advised to return to the ER or call 911 if any headaches, dizziness, shortness of breath, chest pain, abdominal pain, bleeding, fevers, or worsening of medical condition. Patient was counseled about treatment plan, medications, possible side effects, patient�verbalized understanding. All questions were answered to the best of my ability. This discharge took greater then 30 minutes in planning, reviewing documentation, counseling the patient, and discussing with other team members." ASSESSMENT ASSESSMENT Assessment Acute pulmonary embolus Date of Service: February 26, 2025 Billing Provider: BISI SAUNDERS NP Common Visit Codes: [id number] DISCH DAY >30min BISI SAUNDERS NP February 26, 2025 15:28
[2025-02-26] MEDS: MORPHINE SULFATE INJ 2 MG/ml SYRG IV PRN (20:45)
[2025-02-26] MEDS: LORazepam 2MG/ML-1ML VIAL IV PRN (22:57)
[2025-02-27 01:00] VITALS: BP 106/51; PULSE 87; RESP 18; TEMP 97.9; O2SAT 97
[2025-02-27 05:00] VITALS: BP 120/56; PULSE 85; RESP 17; TEMP 97.7; O2SAT 94
[2025-02-27 08:07] VITALS: RESP 16; O2SAT 97
[2025-02-27 08:52] VITALS: BP_SYST 109; BP_SYST 179; BP_DIAS 70; BP_DIAS 72; PULSE 79; RESP 14; TEMP 98.3; O2SAT 96
[2025-02-27 09:29] VITALS: O2SAT 92
[2025-03-03] MEDS ORDERED: APIXABAN 5 MG TAB PO SCH (22:00)
== END 2025-02-27 10:00 | disposition home or self-care (01) | DRG 280 ==
LOC: ER 01:42 → EDBD 01:42 → OVERFLOW 09:33 → TELE-WESTW 23:10
PROVIDERS: ADMIT Nurse Practitioner Acute Care; ATTEND Nurse Practitioner Acute Care
DX: I11.0 Hypertensive heart disease with heart failure (principal); I26.09 Other pulmonary embolism with acute cor pulmonale; I21.A1 Myocardial infarction type 2; J96.01 Acute respiratory failure with hypoxia; I50.33 Acute on chronic diastolic (congestive) heart failure; E78.5 Hyperlipidemia, unspecified; I25.10 Atherosclerotic heart disease of native coronary artery without angina pectoris; F17.200 Nicotine dependence, unspecified, uncomplicated; I34.81 Nonrheumatic mitral (valve) annulus calcification; J43.9 Emphysema, unspecified; Z20.822 Contact with and (suspected) exposure to COVID-19; K21.9 Gastro-esophageal reflux disease without esophagitis; I48.91 Unspecified atrial fibrillation; E03.9 Hypothyroidism, unspecified; F15.10 Other stimulant abuse, uncomplicated; Z88.1 Allergy status to other antibiotic agents; Z79.01 Long term (current) use of anticoagulants; Z79.899 Other long term (current) drug therapy; Z83.3 Family history of diabetes mellitus; Z82.49 Family history of ischemic heart disease and other diseases of the circulatory system; Z90.710 Acquired absence of both cervix and uterus; Z90.49 Acquired absence of other specified parts of digestive tract; Z91.148 Patient's other noncompliance with medication regimen for other reason; Z95.5 Presence of coronary angioplasty implant and graft
CPT/HCPCS: 36415; 71045; 71275; 80048; 80053; 80307; 81001; 83605; 83735; 83880; 84443; 84484; 85014; 85018; 85025; 85610; 85730; 86803; 87426; 87804; 93005; 93306; 93970; 94640; 96374; 96375; 97163; 99291; G0378; J3490

== ENCOUNTER 2025-03-05 05:58 | Inpatient (IN) | payer OTHER, MEDICAID ==
[~2025-03-05] VITALS: Ht 157.5 cm; Wt 58.4 kg
[~2025-03-05 05:58] MED LIST changes: +APIX5TAB PO; +LEVO150T10 PO
--- NOTE | 2025-03-05 06:19 | ED.PDOC ---
SOB-HPI HPI Comments 74-year-old female brought in by ambulance with prior medical history of AFib, asthma, CAD, PE, high lipids, hypertension, [place], seizures, GERD; SHx of appendectomy, hernia repair, hysterectomy, PTCA of chest pain/SOB. Patient reports that he had a PE approximately four days ago, and woke up today with SOB, and left-sided chest pain. Patient states on taking two blood thinners in his compliant with medication. Patient denies chills, fever, N/V/D. No other associated symptoms, modifiers, recent injuries or sick contacts present at this time. Chief Complaint: Chest Pain Time Seen by MD: 06:00 Primary Care Provider: CL Rasheed notes: Nurses Notes, Recordist Chief Notes, Medications, Allergies Information Source: Patient Mode of Arrival: EMS Severity: Moderate Timing: Minutes Duration: Since onset, Minutes Context: While Asleep PE Risk Factors: None History of: Asthma, DVT/PE Prehospital treatment: None Associated Signs and Symptoms: None Quality: Aching Radiation: No Radiation Location: Chest (L) If cough with SOB: Non-Productive Past Medical History PAST MEDICAL HISTORY: AFIB, Asthma, CAD, GERD, High Lipids, HTN, UT, PE, Seizures Surgical History: Appendectomy, Hernia Repair, Hysterectomy, PTCA STEWARD/STEWARDESS TOURIST CLASS History: No Pertinent STEWARD/STEWARDESS TOURIST CLASS History Family History Family History: Reviewed,noncontributory to illness, Unknown, Family hx of heart emma, Family hx of HTN Social History Smoker: Unknown Alcohol: Unknown Drugs: Unknown Lives In: Home Constitutional: denies: chills, diaphoresis, fatigue, fever, malaise, sweats, weakness, others EENTM: denies: blurred vision, double vision, ear bleeding, ear discharge, ear drainage, ear pain, ear ringing, eye pain, eye redness, hearing loss, mouth pain, mouth swelling, nasal discharge, nose bleeding, nose congestion, nose pain, photophobia, tearing, throat pain, throat swelling, voice changes, others Respiratory: reports: shortness of breath; denies: cough, hemoptysis, orthopnea, SOB at rest, SOB with excertion, stridor, wheezing, others Cardiovascular: reports: chest pain; denies: dizzy spells, diaphoresis, Dyspnea on exertion, edema, irregular heart beat, left arm pain, lightheadedness, pa lpitations, PND, syncope, others Gastrointestinal: denies: abdomen distended, abdominal pain, blood streaked bowels, constipated, diarrhea, dysphagia, difficulty swallowing, hematemesis, melena, nausea, poor appetite, poor fluid intake, rectal bleeding, rectal pain, vomiting, others Genitourinary: denies: abnormal vagina bleeding, burning, dyspareunia, dysuria, flank pain, frequency, hematuria, incontinence, pain, , vagina discharge, urgency, others Neurological: denies: dizziness, fainting, headache, left sided numbness, left sided weakness, numbness, paresthesia, pre-existing deficit, right sided numbness, right sided weakness, seizure, speech problems, tingling, tremors, weakness, others Musculoskeletal: denies: back pain, gout, joint pain, joint swelling, muscle pain, muscle stiffness, neck pain, others Integumetry: denies: bruises, change in color, change in hair/nails, dryness, laceration, lesions, lumps, rash, wounds, others Allergic/Immunocompromised: denies: Difficulty Healing, Frequent Infections, Hives, Itching, others Hematologic/Lymphatic: denies: anemia, blood clots, easy bleeding, easy bruising, swollen glands, others Endocrine: denies: excessive hunger, excessive sweating, excessive thirst, excessive urination, flushing, intolerance to cold, intolerance to heat, unexplained weight gain, unexplained weight loss, others Psychiatric: denies: anxiety, bipolar disorder, depression, hopeless, panic disorder, schizophrenia, sleepless, suicidal, others All Other Systems: Reviewed and Negative Physical Exam Exam Comments Tachypneic, crack rooms in the left lower lobe General Appearance: No Apparent Distress, Normal HEENT: Normal ENT Inspection, Pharynx Normal, TMs Normal Neck: Full Range of Motion, Non-Tender, Normal, Normal Inspection Respiratory: Chest Non-Tender, Crackles (Crackles in left lower the), No Accessory Muscle Use, No Respiratory Distress Cardiovascular: No Edema, No JVD, No Murmur, No Gallop, Normal Peripheral Pulses, Tachycardia Breast Exam: Deferred Gastrointestinal: No Organomegaly, Non Tender, No Pulsatile Mass, Normal Bowel Sounds, Soft Genitalia: Deferred Pelvic: Deferred Rectal: Deferred Extremities: No calf tenderness, Normal capillary refill, Normal inspection, Normal range of motion, Non-tender, No pedal edema Musculoskeletal : Apperance: Normal Neurologic: Alert, hot car charger II-XII nml as Tested, No Motor Deficits, Normal Affect, Normal Mood, No Sensory Deficits Cerebellar Function: Normal Reflexes: Normal Skin: Dry, Normal Color, Warm Lymphatic: No Adenopathy Was a procedure done? Was a procedure done?: No Differential Dx Differential Diagnosis: CHF, Myocardial infarction, Pneumonia, URI X-Ray, Labs, Meds, VS Vital Signs Date Time Temp Pulse Resp B/P (MAP) Pulse Ox O2 Delivery O2 Flow Rate FiO2 03/05/25 06:56 101 03/05/25 06:07 98.5 114 24 144/88 (106) 99 98.5 03/05/25 06:02 100 03/05/25 06:00 98.5 106 15 137/107 (117) 97 98.5 Lab Test 03/05/25 07:25 03/05/25 06:23 Range/Units Troponin I High Sensitivity 199 *H 231 *H </=34 ng/L White Blood Count 5.1 4.4-10.8 10^3/uL Red Blood Count 4.42 4.0-5.20 10^6/uL Hemoglobin 13.6 # 12.2-16.2 g/dL Hematocrit 41.3 # 36.0-46.0 % Mean Corpuscular Volume 93.3 80.0-100.0 fL Mean Corpuscular Hemoglobin 30.8 28.0-32.0 pg Mean Corpuscular Hemoglobin Concent 33.0 32.0-36.0 g/dL Red Cell Distribution Width 15.0 H 11.8-14.3 % Platelet Count 176 140-450 10^3/uL Mean Platelet Volume 9.0 6.9-10.8 fL Neutrophils (%) (Auto) 57.0 37.0-80.0 % Lymphocytes (%) (Auto) 33.7 10.0-50.0 % Monocytes (%) (Auto) 5.7 0.0-12.0 % Eosinophils (%) (Auto) 3.0 0.0-7.0 % Basophils (%) (Auto) 0.6 0.0-2.0 % Neutrophils # (Auto) 2.9 1.6-8.6 10 ^3/uL Lymphocytes # (Auto) 1.7 0.4-5.4 10 ^3/uL Monocytes # (Auto) 0.3 0-1.3 10 ^3/uL Eosinophils # (Auto) 0.2 0-0.8 10 ^3/uL Basophils # (Auto) 0 0-0.2 10 ^3/uL Nucleated Red Blood Cells 0.1 % Sodium Level 142 136-145 mmol/L Potassium Level 4.3 3.5-5.1 mmol/L Chloride Level 112 H 98-107 mmol/L Carbon Dioxide Level 21 20-31 mmol/L Anion Gap 9 5-15 Blood Urea Nitrogen 19 9-23 mg/dL Creatinine 0.92 0.550-1.02 mg/dL Glomerular Filtration Rate Calc 65 >90 mL/min BUN/Creatinine Ratio 20.7 H 10.0-20.0 Serum Glucose 93 74-106 mg/dL Calcium Level 8.9 8.7-10.4 mg/dL B-Type Natriuretic Peptide 662.37 0-100 pg/mL [place] [address] Ph: [phone] DIAGNOSTIC IMAGING Diagnostic Imaging Report : [id number] Signed PATIENT: VIBHA VARGHESE ACCT: [id number] UNIT: [id number] : 1950 LOC: ER ROOM / BED: / AGE / SEX: 74 / F ADM STATUS: REG ER SERVICE [id number] ORDERING PHYSICIAN: KIRSTY LEWIS MD PROCEDURE(s): CXRP - CHEST PORTABLE REASON: chest pain ORDER NUMBER(s): [id number], ACCESSION NUMBER(s): [id number] INDICATION: chest pain TECHNIQUE: Frontal view of the chest. COMPARISON: XY CHEST XRAY 1 VIEW on DOS: 02/23/25, XY CHEST PORTABLE on DOS: 09/23/23, XY CHEST PORTABLE on DOS: 08/18/23, CHEST PORTABLE on DOS: 10/17/21, XY CHEST XRAY 1 VIEW on DOS: 02/23/25 FINDINGS: LUNGS AND PLEURAL SPACES: See below. HEART: Cardiomegaly with mild congestion. MEDIASTINUM: Unremarkable. Normal mediastinal contour. BONES/JOINTS: Unremarkable. No acute fracture. OTHER FINDINGS: . . . IMPRESSION: Cardiomegaly with mild congestion. Time of 1ST Reevaluation: 06:30 Reevaluation 1ST: Unchanged Patient Education/Counseling: Diagnosis, Treatment, Prognosis Family Education/Counseling: No Family Present Departure 1 Departure Time of Disposition: 08:37 (Patient presented with chest pain that was concerning for possible STEMI, ACS, PE, Pneumonia, Muscle Strain, COPD, Dissection. Data: 1. I ordered and reviewed the result of at least 3 labs including a CBC, BMP, and Troponin. 2. I independently interpreted the following tests: EKG which shows AFib and Chest X-ray which shows vascular congestion.Risk:This patient has a high risk of morbidity due to further diag nostic testing or treatment and may suffer from an acute cardiac or respiratory disorder. Workup reveals concern for ACS and patient should be admitted for further workup and possible expert consultation. ) Impression: Primary Impression: Acute chest pain Additional Impressions: Shortness of breath History of pulmonary embolism Disposition: ADMITTED INPATIENT Admit to: Med Surg Condition: Serious Critical Care Note Critical Care Time?: Yes Critical care comment: Acute chest pain Authorized and Performed by: Kirsty Lewis MD Total critical care time: Approximately 36 minutes Due to a high probability of clinically significant, life threatening deterioration, the patient required my highest level of preparedness to intervene emergently and I personally spent this critical care time directly and personally managing the patient. This critical care time included obtaining a history; examining the patient; pulse oximetry; ordering and review of studies; arranging urgent treatment with development of a management plan; evaluation of patient's response to treatment; frequent reassessment; and, discussions with other providers. This critical care time was performed to assess and manage the high probability of imminent, life-threatening deterioration that could result in multi-organ failure. It was exclusive of separately billable procedures and treating other patients and teaching time. Please see my other sections and the rest of the note for further information on patient assessment and treatment. Stability Stability form required: No Heart Score Heart Score: Heart Score Response (Comments) Value History Moderate Suspicious 1 EKG Repolarization Disturb 1 Age >65 2 Risk Factors >3 or Hx ASHD 2 Troponin >3 x's Normal limit 2 Total 8 I personally scribed for KIRSTY LEWIS MD ([email or web address]) on 03/05/25 at 06:19. Electronically submitted by Yves Dickinson ([email or web address]). I personally scribed for KIRSTY LEWIS MD ([email or web address]) on 03/05/25 at 07:51. Electronically submitted by Yves Dickinson ([email or web address]). KIRSTY LEWIS MD March 05, 2025 06:19
--- NOTE | 2025-03-05 06:43 | ECG ---
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
[2025-03-05 06:51] LABS: Basophils # (auto) 0 10 ^3/uL (0-0.2); Basophils % (auto) 0.6 % (0.0-2.0); Eosinophils # (auto) 0.2 10 ^3/uL (0-0.8); Hematocrit 41.3 % (36.0-46.0); Hemoglobin 13.6 g/dL (12.2-16.2); Lymphocytes # (auto) 1.7 10 ^3/uL (0.4-5.4); Lymphocytes % (auto) 33.7 % (10.0-50.0); Mean Corpuscular Hemoglobin 30.8 pg (28.0-32.0); Mean Corpuscular Volume 93.3 fL (80.0-100.0); Monocytes # (auto) 0.3 10 ^3/uL (0-1.3); Monocytes % (auto) 5.7 % (0.0-12.0); Neutrophils # (auto) 2.9 10 ^3/uL (1.6-8.6); Nucleated Red Blood Cells % 0.1 %; Platelet Count (auto) 176 10^3/uL (140-450); Red Blood Cells 4.42 10^6/uL (4.0-5.20); White Blood Cell 5.1 10^3/uL (4.4-10.8)
--- NOTE | 2025-03-05 06:58 | ECG ---
[facility] Test Date: 2025-03-05 Test Time: 06:56:03 Pat Name: VIBHA VARGHESE Department: ED Room: [address] [place] [address] Gender: F Outreach Professional: LYNDSAY : 1950 Requested By: KIRSTY ROA Order Number: [id number] Reading MD: Blaze Montgomery Measurements Intervals [place] Rate: 101 P: 0 TN: 0 QRS: 56 QRSD: 92 T: 84 QT: 349 QTc: 453 Interpretive Statements Atrial fibrillation Left ventricular hypertrophy Electronically Signed On 03-05-2025 13:16:56 PDT by Blaze Montgomery Please click the below link to view image of tracing.
[2025-03-05 07:01] LABS: Potassium 4.3 mmol/L (3.5-5.1); Sodium 142 mmol/L (136-145)
[2025-03-05 07:02] LABS: Anion Gap 9 (5-15); Calcium 8.9 mg/dL (8.7-10.4); Carbon Dioxide 21 mmol/L (20-31)
[2025-03-05 07:03] LABS: Chloride 112 mmol/L (98-107)
[2025-03-05 07:07] LABS: BUN/Creatinine Ratio 20.7 (10.0-20.0); Blood Urea Nitrogen 19 mg/dL (9-23); Glucose 93 mg/dL (74-106)
--- NOTE | 2025-03-05 07:38 | DVH ---
INDICATION: chest pain TECHNIQUE: Frontal view of the chest. COMPARISON: XY CHEST XRAY 1 VIEW on DOS: 02/23/25, XY CHEST PORTABLE on DOS: 09/23/23, XY CHEST PORTABLE on DOS: 08/18/23, CHEST PORTABLE on DOS: 10/17/21, XY CHEST XRAY 1 VIEW on DOS: 02/23/25 FINDINGS: LUNGS AND PLEURAL SPACES: See below. HEART: Cardiomegaly with mild congestion. MEDIASTINUM: Unremarkable. Normal mediastinal contour. BONES/JOINTS: Unremarkable. No acute fracture. OTHER FINDINGS: . . . IMPRESSION: Cardiomegaly with mild congestion.
[2025-03-05] MEDS: IOHEXOL 350 MG/ML 100ML IJ ONE (07:55)
[2025-03-05 08:00] VITALS: PULSE 91; RESP 97; O2SAT 99
--- NOTE | 2025-03-05 08:15 | DVH ---
CT CT ANGIO CHEST CONTRAST INDICATION: hx of pe worsening chest pain and sob EXAM DATE: 03/05/2025 07:39 AM COMPARISON: CT CT ANGIO CHEST CONTRAST on DOS: 02/23/25, CT ANGIO CHEST CONTRAST on DOS: 10/19/21 RADIATION DOSE: CTDIvol: mGy, DLP: mGy*cm PROCEDURE: Helical CT angiographic images were obtained of the chest with intravenous contrast. Sag ittal and coronal reconstructions as well as MIPS are provided. Maximum intensity projections perform ed (MIPs) were performed for CTA. ADDITIONAL IMAGES / REFORMATS: None All CT scans at this medical facility are performed using dose modulation techniques as appropriate t o a performed exam including the following: Automated exposure control was utilized; adjustment of th e MA and/or KV according to patient size; and use of iterative reconstruction technique. FINDINGS: Bones: Scattered degenerative changes are noted in the visualized osseous structures. Visualized Abdomen: An IVC filter is seen. Chest Wall: Normal. Soft tissues: Normal. Mediastinum: Normal. Heart: Enlarged. Vessels: No filling defects in the visualized pulmonary arteries including the segmental and subsegme ntal pulmonary arteries. Lymph Nodes: Normal. Pleura: Normal. Airways: Normal. Lung: Normal. Other: None IMPRESSION: No pulmonary embolism in the visualized pulmonary arteries including the segmental and subsegmental p ulmonary arteries. Cardiomegaly.
--- NOTE | 2025-03-05 09:05 | ECG ---
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
[2025-03-05] MEDS ORDERED: MORPHINE SULFATE 4 MG/ML SYR/VIAL IV PRN (11:15)
[2025-03-05] MEDS ORDERED: NITROGLYCERIN 0.4 MG SL TAB SL PRN ×2 (11:15)
[2025-03-05] MEDS ORDERED: MORPHINE SULFATE INJ 2 MG/ml SYRG IV PRN (11:15)
[2025-03-05] MEDS ORDERED: ONDANSETRON HCL 4 MG/2 ML VIAL IV PRN (11:15)
[2025-03-05] MEDS ORDERED: AMLO1TAB22 PO (11:20)
--- NOTE | 2025-03-05 11:41 | DVHHP2 ---
History of Present Illness Reason for Visit: Chest pain History of Present Illness Kenia Bridges is a 74-year-old female with past medical history of hypothyroidism, CAD status post PTCA x9, hypertension, hyperlipidemia, PE diagnosed 4 days ago, [place], seizures, GERD, AFib, appendectomy, cholecystectomy, hysterectomy, and ventral hernia repair with mesh who presents to the ED with chest pain with shortness of breaths. Patient reports that her pain is 5/10 pressure-like and intermittent in nature. She reports that medication makes the pain better. Patient endorses that she does not use home oxygen. When asked if she is taking Eliquis or Plavix she states that she does not know. Patient denies any recent travels, recent trauma or injury, recent sick contacts, fever, chills, lightheadedness, weakness, dizziness, abdominal pain, nausea, vomiting, or diarrhea. Cardiovascular: CAD, HTN, [place], hyperipidemia Pulmonary: Pulmonary embolus BUYER INTERN: Seizure GI: GERD Endocrine: Hypothyroidism Past Surgical History: Appendectomy, Cholecystectomy, Hysterectomy, Hernia Repair, Other (PTCA x9) Family History: None Smoke: Quit ALCOHOL: occassional Drugs: Marijuana, Other Lives: with Family Domestic Violence: Neg Review of Systems Respiratory: Shortness of breath Cardiovascular: Chest Pain Allergies: Coded Allergies: Levofloxacin (Verified Allergy, Intermediate, RASH/HIVES, 01/23/19) Medications Current Medications Medications Dose Ordered Sig/Kasandra Route Start Time Stop Time Status Last Admin Dose Admin Aspirin 81 mg DAILY PO 03/06/25 10:00 UNV Atorvastatin Calcium 40 mg HS PO 03/05/25 22:00 UNV Morphine Sulfate 2 mg Q30MP PRN IV 03/05/25 11:15 UNV Acetaminophen 650 mg Q6HP PRN PO 03/05/25 11:15 UNV Nitroglycerin 0.4 mg Q5MINP PRN SL 03/05/25 11:15 UNV Ondansetron HCl 4 mg Q4HP PRN IV 03/05/25 11:15 UNV Nitroglycerin 0.4 mg Q5MINP PRN SL 03/05/25 11:15 UNV Morphine Sulfate 2 mg Q30M PRN IV 03/05/25 11:15 UNV Apixaban 5 mg BID PO 03/05/25 22:00 UNV Carvedilol 6.25 mg BID PO 03/05/25 22:00 UNV Famotidine 20 mg DAILY PO 03/06/25 10:00 UNV Furosemide 40 mg DAILY PO 03/06/25 10:00 UNV Sacubitril/ Valsartan 1 tab DAILY PO 03/06/25 10:00 UNV Spironolactone 25 mg DAILY PO 03/06/25 10:00 UNV Patient Own Medication 10 mg DAILY PO 03/06/25 10:00 UNV Patient Own Medication 1 tab DAILY PO 03/06/25 10:00 UNV Patient Own Medication 40 mg DAILY PO 03/06/25 10:00 UNV Exam Vital Signs Vital Signs Date Time Temp Pulse Resp B/P (MAP) Pulse Ox O2 Delivery O2 Flow Rate FiO2 03/05/25 10:00 94 15 135/97 (110) 100 03/05/25 08:00 Nasal Cannula* 2 28 03/05/25 06:07 98.5 98.5 General Appearance: Alert, Oriented X3, Cooperative, No acute distress HEENT: Atraumatic, PERRLA, EOMI, Mucous membr. moist/pink Respiratory: Normal air movement Cardiovascular: Normal S1, Normal S2, No murmurs Abdominal: Normal bowel sounds, Soft, No tenderness Extremities: No clubbing, No cyanosis, Normal pulses Skin: No significant lesion Neuro: Normal speech, Strength at 5/5 X4 ext, Normal tone, Sensation intact Psych/Mental Status: Mental status NL, Mood NL Labs/Xrays Labs Test 03/05/25 09:41 03/05/25 06:23 Range/Units Troponin I High Sensitivity 182 *H </=34 ng/L White Blood Count 5.1 4.4-10.8 10^3/uL Red Blood Count 4.42 4.0-5.20 10^6/uL Hemoglobin 13.6 # 12.2-16.2 g/dL Hematocrit 41.3 # 36.0-46.0 % Mean Corpuscular Volume 93.3 80.0-100.0 fL Mean Corpuscular Hemoglobin 30.8 28.0-32.0 pg Mean Corpuscular Hemoglobin Concent 33.0 32.0-36.0 g/dL Red Cell Distribution Width 15.0 H 11.8-14.3 % Platelet Count 176 140-450 10^3/uL Mean Platelet Volume 9.0 6.9-10.8 fL Neutrophils (%) (Auto) 57.0 37.0-80.0 % Lymphocytes (%) (Auto) 33.7 10.0-50.0 % Monocytes (%) (Auto) 5.7 0.0-12.0 % Eosinophils (%) (Auto) 3.0 0.0-7.0 % Basophils (%) (Auto) 0.6 0.0-2.0 % Neutrophils # (Auto) 2.9 1.6-8.6 10 ^3/uL Lymphocytes # (Auto) 1.7 0.4-5.4 10 ^3/uL Monocytes # (Auto) 0.3 0-1.3 10 ^3/uL Eosinophils # (Auto) 0.2 0-0.8 10 ^3/uL Basophils # (Auto) 0 0-0.2 10 ^3/uL Nucleated Red Blood Cells 0.1 % Sodium Level 142 136-145 mmol/L Potassium Level 4.3 3.5-5.1 mmol/L Chloride Level 112 H 98-107 mmol/L Carbon Dioxide Level 21 20-31 mmol/L Anion Gap 9 5-15 Blood Urea Nitrogen 19 9-23 mg/dL Creatinine 0.92 0.550-1.02 mg/dL Glomerular Filtration Rate Calc 65 >90 mL/min BUN/Creatinine Ratio 20.7 H 10.0-20.0 Serum Glucose 93 74-106 mg/dL Calcium Level 8.9 8.7-10.4 mg/dL B-Type Natriuretic Peptide 662.37 0-100 pg/mL CT CT ANGIO CHEST CONTRAST INDICATION: hx of pe worsening chest pain and sob EXAM DATE: 03/05/2025 07:39 AM COMPARISON: CT CT ANGIO CHEST CONTRAST on DOS: 02/23/25, CT ANGIO CHEST CONTRAST on DOS: 10/19/21 RADIATION DOSE: CTDIvol: mGy, DLP: mGy*cm PROCEDURE: Helical CT angiographic images were obtained of the chest with intravenous contrast. Sagittal and coronal reconstructions as well as MIPS are provided. Maximum intensity projections performed (MIPs) were performed for CTA. ADDITIONAL IMAGES / REFORMATS: None All CT scans at this medical facility are performed using dose modulation techniques as appropriate to a performed exam including the following: Automated exposure control was utilized; adjustment of the MA and/or KV according to patient size; and use of iterative reconstruction technique. FINDINGS: Bones: Scattered degenerative changes are noted in the visualized osseous structures. Visualized Abdomen: An IVC filter is seen. Chest Wall: Normal. Soft tissues: Normal. Mediastinum: Normal. Heart: Enlarged. Vessels: No filling defects in the visualized pulmonary arteries including the segmental and subsegmental pulmonary arteries. Lymph Nodes: Normal. Pleura: Normal. Airways: Normal. Lung: Normal. Other: None IMPRESSION: No pulmonary embolism in the visualized pulmonary arteries including the segmental and subsegmental pulmonary arteries. Cardiomegaly. INDICATION: chest pain TECHNIQUE: Frontal view of the chest. COMPARISON: XY CHEST XRAY 1 VIEW on DOS: 02/23/25, XY CHEST PORTABLE on DOS: 09/23/23, XY CHEST PORTABLE on DOS: 08/18/23, CHEST PORTABLE on DOS: 10/17/21, XY CHEST XRAY 1 VIEW on DOS: 02/23/25 FINDINGS: LUNGS AND PLEURAL SPACES: See below. HEART: Cardiomegaly with mild congestion. MEDIASTINUM: Unremarkable. Normal mediastinal contour. BONES/JOINTS: Unremarkable. No acute fracture. OTHER FINDINGS: . . . IMPRESSION: Cardiomegaly with mild congestion. Assessment/Plan Assessment/Plan Assessment Cardiomegaly NSTEMI likely type 2 due to polysubstance use Acute hypoxic respiratory failure AFib History of CAD status post PTCA x9 History of hypothyroidism Marijuana use Amphetamine use Alcohol use History of tobacco use History of hypertension History of hyperlipidemia History of PE on anti coags History of [place] History of seizures not on medications History of GERD History of appendectomy History of cholecystectomy History of hysterectomy History of ventral hernia repair with mesh History of medication noncompliance Plan Admit to tele Trend troponins Supportive oxygen CTA chest noted EKG noted Chest x-ray noted BNP Aspirin Statin Last echo on 02/23/2025 EF 50% with severe massive left atrium dilatation, right atrium enlarged, severe aortic regurg, moderate sclerosis noted, severe mitral regurg, mitral stenosis mild to moderate, and moderate tricuspid regurg UDS UA Diet Home medications reconciled DVT prophylaxis-patient on Eliquis PUD prophylaxis-PPIs Discussed plan of care with patient and nurse Counseled patient on cessation of marijuana use, amphetamine use, alcohol use, and tobacco use Cardio consult Plan discussed with: Patient My Orders Orders - RUIZ VERNON Procedure Category Date Status Time * Cardiology Consult CONS 03/05/25 Transmitted 11:04 Echo 2d Mode Cardiac US 03/05/25 Logged DOP 11:04 Thyroid Stimulating LAB 03/05/25 In Process Hormone 11:04 Lipid Panel LAB 03/05/25 In Process 11:04 Hemoglobin A1c LAB 03/05/25 In Process 11:04 Admit ADMIT 03/05/25 Transmitted 11:04 Code Status CODE 03/05/25 Transmitted 11:04 Vital Signs SAMANTHA 03/05/25 In Process 11:04 Renal Medicine Specialist SAMANTHA 03/05/25 In Process 11:04 Cardiac DIET 03/05/25 Transmitted Diet-2gna,Lofat,Lochol Lunch Aspirin Tablet PHA 03/06/25 Logged 10:00 Atorvastatin (Lipitor) PHA 03/05/25 Logged 22:00 Morphine Sulfate PHA 03/05/25 Logged Injection 11:15 Acetaminophen Tablet PHA 03/05/25 Logged (Tylenol Tablet) 11:15 Complete Blood Count LAB 03/06/25 Verified 04:00 Basic Metabolic Panel LAB 03/06/25 Verified 04:00 Magnesium LAB 03/06/25 Verified 04:00 Nitroglycerin PHA 03/05/25 Logged Sublingual (Ntrostat 11:15 Ondansetron Hcl PHA 03/05/25 Logged (Zofran) 11:15 Electrocardigram EKG 03/06/25 Logged 04:00 Troponin-I Hs LAB 03/05/25 Logged 11:04 Cardiac SAMANTHA 03/05/25 In Process Rehabilitation - Outpa Nitroglycerin PHA 03/05/25 Logged Sublingual (Ntrostat 11:15 Morphine Sulfate PHA 03/05/25 Logged Injection 11:15 Stat Ekg For Chest SAMANTHA 03/05/25 In Process Pain 11:04 Notify Of Changes SAMANTHA 03/05/25 In Process From Base 11:04 Business Information Manager For SAMANTHA 03/05/25 In Process 24 Hours 11:04 Emergency Dysrhythmia SAMANTHA 03/05/25 In Process Protocol 11:04 Rhythm Strips Once [facility] 03/05/25 In Process Every Shift 11:04 Oxygen By Nasal RT 03/05/25 Transmitted Cannula 11:04 Apixaban (Eliquis) PHA 03/05/25 Logged 22:00 Carvedilol Tablet PHA 03/05/25 Logged (Coreg Tablet) 22:00 Famotidine Tablet PHA 03/06/25 Logged (Pepcid Tablet) 10:00 Furosemide Tablet PHA 03/06/25 Logged (Lasix Tablet) 10:00 Sacubitril-Valsartan PHA 03/06/25 Logged (Entresto 24-26 Mg 10:00 Spironolactone PHA 03/06/25 Logged (Aldactone) 10:00 (Nf) Amlodipine PHA 03/06/25 Logged Besylate 10:00 (Nf) Levothyroxine PHA 03/06/25 Logged Sodium 10:00 (Nf) Omeprazole (Gnp PHA 03/06/25 Logged Omeprazole) 10:00 Date of Service: March 05, 2025 Billing Provider: RUIZ VERNON Common Visit Codes: [id number] INP/OBS CARE (HIGH) RUIZ VERNON March 05, 2025 11:41
[2025-03-05 11:54] LABS: Triglycerides 107 mg/dL (< 150)
[2025-03-05 11:55] LABS: LDL Cholesterol 65 mg/dL (< 100)
[2025-03-05 11:56] LABS: HDL Cholesterol 48 mg/dL (40-59)
[2025-03-05 11:57] LABS: Cholesterol 126 mg/dL (< 200)
[2025-03-05 14:35] LABS: Urine Bacteria None Seen /hpf (None Seen)
[2025-03-05 14:51] LABS: Urine Blood Negative /uL (Negative); Urine Clarity Clear (Clear); Urine Color Light-Yellow (Yellow); Urine Mucus FEW (None Seen); Urine Protein, UAD TRACE (Negative); Urine Squamous Epithelial Cell FEW /hpf (<5); Urine Urobilinogen Normal (Negative); Urine WBC 1 /HPF (0-5); Urine pH 5.5 (5.0-9.0)
[2025-03-05 15:00] LABS: Amphetamine Screen, Urine Pos (NEGATIVE); Barbiturate Scree,Urine Neg (NEGATIVE); Benzodiazephine Screen, Urine Neg (NEGATIVE); Cannabinoid Screen, Urine Pos (NEGATIVE); Cocaine Screen, Urine Neg (NEGATIVE); Opiate Scree,Urine Neg (NEGATIVE); Phencyclidine Screen, Urine Neg (NEGATIVE); Urine Specific Gravity > 1.050 (1.001-1.035)
--- NOTE | 2025-03-05 15:43 | DVHINCON2 ---
Date of service: March 05, 2025 History of Present Illness 74 yo F with hx of meth abuse, tobacco abuse, non compliance, afib, cad s/p pci , admitted for sob . pt had afib rvr and hypoxia. pt saw me 3 years ago for LHC showing patent stent and mild cad. ecg shows afib Past Medical History reviewed Family History: Diabetes mellitus 19 CHILD Hypertension G8 MOTHER Allergies: Coded Allergies: Levofloxacin (Verified Allergy, Intermediate, RASH/HIVES, 01/23/19) Home Meds Active Scripts Levothyroxine Sodium (Levothyroxine Sodium) 150 Mcg Tab, 1 TAB PO DAILY for 30 Days, #30 TAB 5 Refills Prov:BISI SAUNDERS GASATERIA ATTENDANT 02/26/25 Apixaban Base (ELIQUIS) 5 Mg Tab, 10 MG PO BID for 6 Days, #24 TAB 10MG BID X 7 DAYS THEN 5MG PO BID FOR AT LEAST 6 MONTHS FOR DVT/PE TREATMENT Prov:BISI SAUNDERS GASATERIA ATTENDANT 02/26/25 Apixaban Base (ELIQUIS) 5 Mg Tab, 5 MG PO BID for 60 Days, #120 TAB Prov:BISI SAUNDERS GASATERIA ATTENDANT 02/26/25 Albuterol Sulfate (Albuterol Sulfate Hfa) 108 Mcg/Act Aer, 108 MCG IN Q2HPRN PRN for 1 Day, AER Prov:MELISSA WHITMAN DO 08/18/23 Potassium Chloride (POTASSIUM CHLORIDE CR) 10 Meq Tb, 10 MEQ PO DAILY, #30 Hold for 5 days Prov:BRYAN HAUSER MD 10/18/21 Reported Medications Amlodipine Besylate (Amlodipine Besylate) 5 Mg Tab, 1 TAB PO DAILY 03/05/25 Dicyclomine Hcl (Dicyclomine Hcl) 20 Mg Tab, 20 MG PO BID for 30 Days, MG 02/29/20 Carvedilol (COREG) 3.125 Mg Tab, 6.25 MG OR BID, TAB 02/29/20 Omeprazole (Gnp Omeprazole) 20 Mg Tab, 40 MG PO DAILY, TAB 07/16/19 Famotidine (Famotidine) 20 Mg Tab, 20 MG PO DAILY for 30 Days, MG 07/16/19 Clopidogrel Bisulfate (CLOPIDOGREL) 75 Mg Tab, 1 TAB PO DAILY, #90 TAB 1 Refill 01/24/19 Apixaban Base (ELIQUIS) 5 Mg Tab, 5 MG OR BID for 90 Days, #180 TAB 01/24/19 Furosemide (Furosemide) 40 Mg Tab, 40 MG PO DAILY for 30 Days 01/24/19 Sacubitril-Valsartan (Entresto 24-26 mg) 1 Tab Tab, 1 TAB PO, TAB 01/24/19 Docusate Sodium (Docusate Sodium) 100 Mg Tab, 100 MG PO DAILYP PRN for FOR CONSTIPATION for 30 Days, MG 01/24/19 Spironolactone (Spironolactone) 25 Mg Tab, 1 TAB PO DAILY, #90 TAB 1 Refill 01/24/19 Atorvastatin Calcium (ATORVASTATIN CALCIUM) 80 Mg Tab, 10 MG PO DAILY 04/30/18 Amlodipine Besylate (Amlodipine Besylate) 10 Mg Tab, 10 MG PO DAILY 04/30/18 Current Medications Current Medications Medications (Trade) Dose Ordered Sig/Kasandra Route PRN Reason Start Time Stop Time Status Last Admin Aspirin 81 mg DAILY PO 03/06/25 10:00 Atorvastatin Calcium (Lipitor) 40 mg HS PO 03/05/25 22:00 Morphine Sulfate 2 mg Q30MP PRN IV FOR CHEST PAIN 03/05/25 11:15 Acetaminophen (Tylenol Tablet) 650 mg Q6HP PRN PO MILD PAIN (1-3 PAIN SCALE) 03/05/25 11:15 Nitroglycerin (Ntrostat Sublingual) 0.4 mg Q5MINP PRN SL FOR CHEST PAIN 03/05/25 11:15 03/05/25 11:25 DC Ondansetron HCl (Zofran) 4 mg Q4HP PRN IV NAUSEA / VOMITING 03/05/25 11:15 Nitroglycerin (Ntrostat Sublingual) 0.4 mg Q5MINP PRN SL FOR CHEST PAIN 03/05/25 11:15 Morphine Sulfate 2 mg Q30M PRN IV FOR CHEST PAIN 03/05/25 11:15 03/05/25 11:25 DC Apixaban (Eliquis) 5 mg BID PO 03/05/25 22:00 Carvedilol (Coreg Tablet) 6.25 mg BID PO 03/05/25 22:00 Famotidine (Pepcid Tablet) 20 mg DAILY PO 03/06/25 10:00 Furosemide (Lasix Tablet) 40 mg DAILY PO 03/06/25 10:00 Sacubitril/ Valsartan (Entresto 24-26 Mg tab) 1 tab DAILY PO 03/06/25 10:00 Spironolactone (Aldactone) 25 mg DAILY PO 03/06/25 10:00 Amlodipine Besylate (Norvasc Tablet) 10 mg DAILY PO 03/06/25 10:00 Levothyroxine Sodium (Synthroid Tablet) 150 mcg DAILY PO 03/06/25 10:00 Patient Own Medication 40 mg DAILY PO 03/06/25 10:00 Review of Systems 10 pt ros otherwise negative +sob +Fatigue Vital Signs Vital Signs Date Time Temp Pulse Resp B/P (MAP) Pulse Ox O2 Delivery O2 Flow Rate FiO2 03/05/25 12:00 98.2 86 15 129/80 (96) 97 98.2 03/05/25 08:00 Nasal Cannula* 2 28 Physical Exam nad s1 s2 irregular diffuse rhonchi abd soft nt/nd trivial edema Labs/Diagnostic Data Labs Test 03/05/25 14:30 03/05/25 09:41 03/05/25 06:23 Range/Units Urine Color Light-yellow Yellow Urine Clarity Clear Clear Urine pH 5.5 5.0-9.0 Urine Specific [place] > 1.050 H 1.001-1.035 Urine Protein Trace H Negative Urine Ketones Negative Negative Urine Blood Negative Negative /uL Urine Nitrite Negative Negative Urine Bilirubin Negative Negative Urine Urobilinogen Normal Negative mg/dL Urine Leukocyte Esterase Negative Negative /uL Urine RBC 2 0 - 4 /hpf Urine Microscopic WBC 1 0-5 /HPF Urine Squamous Epithelial Cells Few <5 /hpf Urine Bacteria None seen None Seen /hpf Urine Mucus Few None Seen Urine Glucose Normal Normal mg/dL Urine Opiates Screen Neg NEGATIVE Urine Fentanyl Screen Neg NEGATIVE Urine Barbiturates Screen Neg NEGATIVE Urine Phencyclidine Screen Neg NEGATIVE Urine Amphetamines Screen Pos NEGATIVE Urine Benzodiazepines Screen Neg NEGATIVE Urine Cocaine Screen Neg NEGATIVE Urine Cannabinoids Screen Pos NEGATIVE Troponin I High Sensitivity 182 *H </=34 ng/L Triglycerides Level 107 < 150 mg/dL Cholesterol Level 126 < 200 mg/dL LDL Cholesterol 65 < 100 mg/dL HDL Cholesterol 48 40-59 mg/dL Thyroid Stimulating Hormone (TSH) 24.79 H 0.55-4.78 uIU/mL White Blood Count 5.1 4.4-10.8 10^3/uL Red Blood Count 4.42 4.0-5.20 10^6/uL Hemoglobin 13.6 # 12.2-16.2 g/dL Hematocrit 41.3 # 36.0-46.0 % Mean Corpuscular Volume 93.3 80.0-100.0 fL Mean Corpuscular Hemoglobin 30.8 28.0-32.0 pg Mean Corpuscular Hemoglobin Concent 33.0 32.0-36.0 g/dL Red Cell Distribution Width 15.0 H 11.8-14.3 % Platelet Count 176 140-450 10^3/uL Mean Platelet Volume 9.0 6.9-10.8 fL Neutrophils (%) (Auto) 57.0 37.0-80.0 % Lymphocytes (%) (Auto) 33.7 10.0-50.0 % Monocytes (%) (Auto) 5.7 0.0-12.0 % Eosinophils (%) (Auto) 3.0 0.0-7.0 % Basophils (%) (Auto) 0.6 0.0-2.0 % Neutrophils # (Auto) 2.9 1.6-8.6 10 ^3/uL Lymphocytes # (Auto) 1.7 0.4-5.4 10 ^3/uL Monocytes # (Auto) 0.3 0-1.3 10 ^3/uL Eosinophils # (Auto) 0.2 0-0.8 10 ^3/uL Basophils # (Auto) 0 0-0.2 10 ^3/uL Nucleated Red Blood Cells 0.1 % Sodium Level 142 136-145 mmol/L Potassium Level 4.3 3.5-5.1 mmol/L Chloride Level 112 H 98-107 mmol/L Carbon Dioxide Level 21 20-31 mmol/L Anion Gap 9 5-15 Blood Urea Nitrogen 19 9-23 mg/dL Creatinine 0.92 0.550-1.02 mg/dL Glomerular Filtration Rate Calc 65 >90 mL/min BUN/Creatinine Ratio 20.7 H 10.0-20.0 Serum Glucose 93 74-106 mg/dL Hemoglobin A1c 5.7 <5.7 % A1C Calcium Level 8.9 8.7-10.4 mg/dL B-Type Natriuretic Peptide 662.37 0-100 pg/mL Assessment afib rvr r/o chf nstemi diastolic HF ckd meth abuse tobacco abuse Plan/Recommendation iv lasix pt is on doac and plavix recommend echo rate control pt o2 supplementation review previous [facility] images Plan discussed with: Patient BLAISE TINSLEY MD March 05, 2025 15:43
[2025-03-05] MEDS: FUROSEMIDE 40 MG/4 ML VIAL IV ONE (16:39)
[2025-03-05] MEDS: DIGOXIN (250MCG/ML) 2 ML AMPULE IV ONE (16:40)
[2025-03-05 19:40] VITALS: PULSE 96; RESP 96; O2SAT 96
[2025-03-05 21:49] VITALS: BP 139/94; PULSE 98; RESP 19; TEMP 98; O2SAT 95
[2025-03-05] MEDS: ATORVASTATIN 20 MG TAB PO SCH (22:26)
[2025-03-05] MEDS: APIXABAN 5 MG TAB PO SCH (22:26)
[2025-03-05] MEDS: CARVEDILOL 3.125 MG TAB PO SCH (22:27)
[2025-03-06 05:00] VITALS: BP 137/94; PULSE 80; RESP 18; TEMP 97.1; O2SAT 98
[2025-03-06 08:00] VITALS: PULSE 68; PULSE 94; RESP 19; O2SAT 97
[2025-03-06 08:12] LABS: Chloride 107 mmol/L (98-107); Sodium 140 mmol/L (136-145)
[2025-03-06 08:13] LABS: Anion Gap 9 (5-15); Basophils # (auto) 0.1 10 ^3/uL (0-0.2); Basophils % (auto) 0.9 % (0.0-2.0); Carbon Dioxide 24 mmol/L (20-31); Eosinophils # (auto) 0 10 ^3/uL (0-0.8); Eosinophils % (auto) 0.3 % (0.0-7.0); Hemoglobin 15.1 g/dL (12.2-16.2); Lymphocytes # (auto) 1.2 10 ^3/uL (0.4-5.4); Lymphocytes % (auto) 20.8 % (10.0-50.0); Mean Corpuscular Hemoglobin 30.7 pg (28.0-32.0); Mean Corpuscular Hgb Conc. 33.6 g/dL (32.0-36.0); Mean Corpuscular Volume 91.1 fL (80.0-100.0); Monocytes # (auto) 0.3 10 ^3/uL (0-1.3); Monocytes % (auto) 5.3 % (0.0-12.0); Neutrophils # (auto) 4.3 10 ^3/uL (1.6-8.6); Neutrophils % (auto) 72.7 % (37.0-80.0); Nucleated Red Blood Cells % 0.1 %; Platelet Count (auto) 188 10^3/uL (140-450); Red Blood Cells 4.93 10^6/uL (4.0-5.20); Red Cell Distribution Width 14.3 % (11.8-14.3); White Blood Cell 5.9 10^3/uL (4.4-10.8)
[2025-03-06 08:18] LABS: BUN/Creatinine Ratio 25.9 (10.0-20.0); Blood Urea Nitrogen 21 mg/dL (9-23)
[2025-03-06 08:19] LABS: Magnesium 1.9 mg/dL (1.6-2.6)
[2025-03-06 08:22] LABS: Glucose 111 mg/dL (74-106)
[2025-03-06] MEDS: amLODIPine BESYLATE 5 MG TAB PO SCH (08:32)
[2025-03-06] MEDS: LEVOTHYROXINE SODIUM 50 MCG TAB PO SCH (08:33)
[2025-03-06] MEDS: SACUBITRIL-VALSARTAN 24mg/26mg TAB PO SCH (08:33)
[2025-03-06] MEDS: ASPirin 81 mg TAB PO SCH (08:34)
[2025-03-06] MEDS: SPIRONOLACTONE 25 MG TAB PO SCH (08:34)
[2025-03-06] MEDS: FUROSEMIDE 40 MG TAB PO SCH (08:34)
[2025-03-06] MEDS: FAMOTIDINE 20 MG TAB PO SCH (08:34)
[2025-03-06 09:00] VITALS: BP 132/74; PULSE 94; RESP 18; TEMP 98.5; O2SAT 94
[2025-03-06 13:00] VITALS: BP 115/85; PULSE 102; RESP 20; TEMP 97.9; O2SAT 93
--- NOTE | 2025-03-06 15:22 | DVHPN2 ---
Subjective Seen and examined at bedside. NO CHEST PAIN OR SOB. Patient continues to use Meth. Changes from previous H/P or p: No Changes Cardiovascular: No Chest Pain, No Palpitations, No Orthopnea, No Paroxysmal Noc. Dyspnea, No Edema, No Lt Headedness, No Other Respiratory: No Cough, No Dry, No Shortness of breath, No SOB with excertion, No Wheezing, No Hemoptysis, No Pleuritic Pain, No Sputum, No Other Objective Vitals Vital Signs Date Time Temp Pulse Resp B/P (MAP) Pulse Ox O2 Delivery O2 Flow Rate FiO2 03/06/25 13:00 97.9 102 20 115/85 (95) 93 97.9 03/06/25 08:00 Room Air* 0 21 Intake/Output Intake and Output 03/06/25 07:00 Intake Total 50 ml Output Total 250 ml Balance -200 ml Intake Oral 50 ml Output Urine Total 250 ml # Voids 3 General Appearance: Alert, Oriented X3, Cooperative, No acute distress HEENT: Atraumatic Lungs: Clear to auscultation Cardiovascular: Regular rate, Normal S1, Normal S2 Abdomen: Normal bowel sounds, Soft Psych/Mental Status: Mental status NL Medications Current Medications Medications Dose Ordered Sig/Kasandra Route Start Time Stop Time Status Last Admin Dose Admin Aspirin 81 mg DAILY PO 03/06/25 10:00 03/06/25 08:34 81 MG Atorvastatin Calcium 40 mg HS PO 03/05/25 22:00 03/05/25 22:26 40 MG Morphine Sulfate 2 mg Q30MP PRN IV 03/05/25 11:15 Acetaminophen 650 mg Q6HP PRN PO 03/05/25 11:15 Ondansetron HCl 4 mg Q4HP PRN IV 03/05/25 11:15 Nitroglycerin 0.4 mg Q5MINP PRN SL 03/05/25 11:15 Apixaban 5 mg BID PO 03/05/25 22:00 03/06/25 08:34 5 MG Carvedilol 6.25 mg BID PO 03/05/25 22:00 03/06/25 08:33 6.25 MG Famotidine 20 mg DAILY PO 03/06/25 10:00 03/06/25 08:34 20 MG Furosemide 40 mg DAILY PO 03/06/25 10:00 03/06/25 08:34 40 MG Sacubitril/ Valsartan 1 tab DAILY PO 03/06/25 10:00 03/06/25 08:33 1 TAB Spironolactone 25 mg DAILY PO 03/06/25 10:00 03/06/25 08:34 25 MG Amlodipine Besylate 10 mg DAILY PO 03/06/25 10:00 03/06/25 08:32 10 MG Levothyroxine Sodium 150 mcg DAILY PO 03/06/25 10:00 03/06/25 08:33 150 MCG Patient Own Medication 40 mg DAILY PO 03/06/25 10:00 Laboratory Results Laboratory Tests 03/06/25 07:42 Chemistry Test 03/06/25 07:42 Calcium Level 10.0 mg/dL (8.7-10.4) Magnesium Level 1.9 mg/dL (1.6-2.6) Urinalysis Test 03/05/25 14:30 Urine Color Light-yellow (Yellow) Urine Clarity Clear (Clear) Urine pH 5.5 (5.0-9.0) Urine Specific [place] > 1.050 (1.001-1.035) Urine Protein Trace (Negative) H Urine Ketones Negative (Negative) Urine Blood Negative /uL (Negative) Urine Nitrite Negative (Negative) Urine Bilirubin Negative (Negative) Urine Urobilinogen Normal mg/dL (Negative) Urine Leukocyte Esterase Negative /uL (Negative) Urine RBC 2 /hpf (0 - 4) Urine Microscopic WBC 1 /HPF (0-5) Urine Squamous Epithelial Cells Few /hpf (<5) Urine Bacteria None seen /hpf (None Seen) Urine Mucus Few (None Seen) Urine Glucose Normal mg/dL (Normal) Microbiology Microbiology Date/Time Source Procedure Growth Status 03/06/25 06:10 Nose MRSA Screen - Final Complete Assessment/Plan Assessment/Plan Cardiomegaly NSTEMI likely type 2 due to polysubstance use Acute hypoxic respiratory failure AFib History of CAD status post PTCA x9 History of hypothyroidism Marijuana use Amphetamine use Plan: Cardio Cx [employer] Supervisor on drug use and med compliance Plan discussed with: Patient Date of Service: March 06, 2025 Billing Provider: EARL GRAFF MD Common Visit Codes: [id number] INP/OBS CARE(HIGH) EARL GRAFF MD March 06, 2025 15:22
--- NOTE | 2025-03-06 16:24 | DVHCONRES ---
Date Seen: March 06, 2025 Resident Creating Document: SHANTEL ANDRADE RESIDENT Referring Physician Dr. Batista Reason for Consultation Chest pain History of Present Illness 74-year-old female with past medical history of AFib, asthma, coronary artery disease status post PCI, pulmonary embolism diagnosed four days ago, hyperlipidemia, hypertension, seizure, GERD, marijuana use disorder, amphetamine use disorder, history of alcohol use disorder presented with complaints of chest pain associated with shortness of breath. Patient was recently discharged from hospital for acute PE after which she was started on Eliquis. Patient mentioned that she started having chest pain which was initially left-sided and now radiating to the right side of the chest, describes it as sharp quality, increased on deep inspiration, not relieved by rest, improved on sitting up. Patient mentioned associated shortness of breath and cough that also started two days ago. She describes the cough is dry but sometimes had sputum but does not know the color of the sputum. She mentioned associated palpitations. On presentation in the hospital, patient had AFib with RVR initially after which she was given IV digoxin and currently has AFib under controlled rate. Drug screen shows positive for methamphetamine and cannabis Family history Mother had high blood pressure Medication history Amlodipine Levothyroxine Spironolactone Entresto Lasix Coreg Eliquis Statins Aspirin Social history Patient mentioned that she takes marijuana occasionally but denied amphetamine, occasional alcohol intake and denied any other drugs Past Medical History As described in the HPI Family History: Diabetes mellitus 19 CHILD Hypertension G8 MOTHER Allergies: Coded Allergies: Levofloxacin (Verified Allergy, Intermediate, RASH/HIVES, 01/23/19) Home Meds Active Scripts Levothyroxine Sodium (Levothyroxine Sodium) 150 Mcg Tab, 1 TAB PO DAILY for 30 Days, #30 TAB 5 Refills Prov:BISI SAUNDERS DICTATING MACHINE MECHANIC 02/26/25 Apixaban Base (ELIQUIS) 5 Mg Tab, 10 MG PO BID for 6 Days, #24 TAB 10MG BID X 7 DAYS THEN 5MG PO BID FOR AT LEAST 6 MONTHS FOR DVT/PE TREATMENT Prov:YANETH SAUNDERSPH DICTATING MACHINE MECHANIC 02/26/25 Apixaban Base (ELIQUIS) 5 Mg Tab, 5 MG PO BID for 60 Days, #120 TAB Prov:YANETH SAUNDERSPH DICTATING MACHINE MECHANIC 02/26/25 Albuterol Sulfate (Albuterol Sulfate Hfa) 108 Mcg/Act Aer, 108 MCG IN Q2HPRN PRN for 1 Day, AER Prov:MELISSA WHITMAN DO 08/18/23 Potassium Chloride (POTASSIUM CHLORIDE CR) 10 Meq Tb, 10 MEQ PO DAILY, #30 Hold for 5 days Prov:BRYAN HAUSER MD 10/18/21 Reported Medications Amlodipine Besylate (Amlodipine Besylate) 5 Mg Tab, 1 TAB PO DAILY 03/05/25 Dicyclomine Hcl (Dicyclomine Hcl) 20 Mg Tab, 20 MG PO BID for 30 Days, MG 02/29/20 Carvedilol (COREG) 3.125 Mg Tab, 6.25 MG OR BID, TAB 02/29/20 Omeprazole (Gnp Omeprazole) 20 Mg Tab, 40 MG PO DAILY, TAB 07/16/19 Famotidine (Famotidine) 20 Mg Tab, 20 MG PO DAILY for 30 Days, MG 07/16/19 Clopidogrel Bisulfate (CLOPIDOGREL) 75 Mg Tab, 1 TAB PO DAILY, #90 TAB 1 Refill 01/24/19 Apixaban Base (ELIQUIS) 5 Mg Tab, 5 MG OR BID for 90 Days, #180 TAB 01/24/19 Furosemide (Furosemide) 40 Mg Tab, 40 MG PO DAILY for 30 Days 01/24/19 Sacubitril-Valsartan (Entresto 24-26 mg) 1 Tab Tab, 1 TAB PO, TAB 01/24/19 Docusate Sodium (Docusate Sodium) 100 Mg Tab, 100 MG PO DAILYP PRN for FOR CONSTIPATION for 30 Days, MG 01/24/19 Spironolactone (Spironolactone) 25 Mg Tab, 1 TAB PO DAILY, #90 TAB 1 Refill 01/24/19 Atorvastatin Calcium (ATORVASTATIN CALCIUM) 80 Mg Tab, 10 MG PO DAILY 04/30/18 Amlodipine Besylate (Amlodipine Besylate) 10 Mg Tab, 10 MG PO DAILY 04/30/18 Current Medications Current Medications Medications (Trade) Dose Ordered Sig/Kasandra Route PRN Reason Start Time Stop Time Status Last Admin Aspirin 81 mg DAILY PO 03/06/25 10:00 03/06/25 08:34 Atorvastatin Calcium (Lipitor) 40 mg HS PO 03/05/25 22:00 03/05/25 22:26 Apixaban (Eliquis) 5 mg BID PO 03/05/25 22:00 03/06/25 08:34 Carvedilol (Coreg Tablet) 6.25 mg BID PO 03/05/25 22:00 03/06/25 08:33 Famotidine (Pepcid Tablet) 20 mg DAILY PO 03/06/25 10:00 03/06/25 08:34 Furosemide (Lasix Tablet) 40 mg DAILY PO 03/06/25 10:00 03/06/25 08:34 Sacubitril/ Valsartan (Entresto 24-26 Mg tab) 1 tab DAILY PO 03/06/25 10:00 03/06/25 08:33 Spironolactone (Aldactone) 25 mg DAILY PO 03/06/25 10:00 03/06/25 08:34 Amlodipine Besylate (Norvasc Tablet) 10 mg DAILY PO 03/06/25 10:00 03/06/25 08:32 Levothyroxine Sodium (Synthroid Tablet) 150 mcg DAILY PO 03/06/25 10:00 03/06/25 08:33 Patient Own Medication 40 mg DAILY PO 03/06/25 10:00 Review of Systems As described in the HPI Vital Signs Vital Signs Date Time Temp Pulse Resp B/P (MAP) Pulse Ox O2 Delivery O2 Flow Rate FiO2 03/06/25 13:00 97.9 102 20 115/85 (95) 93 97.9 03/06/25 08:00 Room Air* 0 21 Physical Exam Examination General Appearance: Alert, Oriented X3, Cooperative, No acute distress HEENT: EOMI Respiratory: Clear to auscultation, Normal air movement Cardiovascular: Regular rate, Normal S1, Normal S2 Abdominal: Normal bowel sounds Extremities: No cyanosis, No edema, Normal pulses, No tenderness/swelling Skin: No rashes, No breakdown Neuro: Normal tone, speech Labs/Diagnostic Data Labs Test 03/06/25 07:42 03/05/25 14:30 03/05/25 09:41 03/05/25 06:23 Range/Units White Blood Count 5.9 4.4-10.8 10^3/uL Red Blood Count 4.93 4.0-5.20 10^6/uL Hemoglobin 15.1 12.2-16.2 g/dL Hematocrit 45.0 36.0-46.0 % Mean Corpuscular Volume 91.1 80.0-100.0 fL Mean Corpuscular Hemoglobin 30.7 28.0-32.0 pg Mean Corpuscular Hemoglobin Concent 33.6 32.0-36.0 g/dL Red Cell Distribution Width 14.3 11.8-14.3 % Platelet Count 188 140-450 10^3/uL Mean Platelet Volume 9.2 6.9-10.8 fL Neutrophils (%) (Auto) 72.7 37.0-80.0 % Lymphocytes (%) (Auto) 20.8 10.0-50.0 % Monocytes (%) (Auto) 5.3 0.0-12.0 % Eosinophils (%) (Auto) 0.3 0.0-7.0 % Basophils (%) (Auto) 0.9 0.0-2.0 % Neutrophils # (Auto) 4.3 1.6-8.6 10 ^3/uL Lymphocytes # (Auto) 1.2 0.4-5.4 10 ^3/uL Monocytes # (Auto) 0.3 0-1.3 10 ^3/uL Eosinophils # (Auto) 0 0-0.8 10 ^3/uL Basophils # (Auto) 0.1 0-0.2 10 ^3/uL Nucleated Red Blood Cells 0.1 % Sodium Level 140 136-145 mmol/L Potassium Level 4.0 3.5-5.1 mmol/L Chloride Level 107 98-107 mmol/L Carbon Dioxide Level 24 20-31 mmol/L Anion Gap 9 5-15 Blood Urea Nitrogen 21 9-23 mg/dL Creatinine 0.81 0.550-1.02 mg/dL Glomerular Filtration Rate Calc 76 >90 mL/min BUN/Creatinine Ratio 25.9 H 10.0-20.0 Serum Glucose 111 H 74-106 mg/dL Calcium Level 10.0 8.7-10.4 mg/dL Magnesium Level 1.9 1.6-2.6 mg/dL Urine Color Light-yellow Yellow Urine Clarity Clear Clear Urine pH 5.5 5.0-9.0 Urine Specific [place] > 1.050 H 1.001-1.035 Urine Protein Trace H Negative Urine Ketones Negative Negative Urine Blood Negative Negative /uL Urine Nitrite Negative Negative Urine Bilirubin Negative Negative Urine Urobilinogen Normal Negative mg/dL Urine Leukocyte Esterase Negative Negative /uL Urine RBC 2 0 - 4 /hpf Urine Microscopic WBC 1 0-5 /HPF Urine Squamous Epithelial Cells Few <5 /hpf Urine Bacteria None seen None Seen /hpf Urine Mucus Few None Seen Urine Glucose Normal Normal mg/dL Urine Opiates Screen Neg NEGATIVE Urine Fentanyl Screen Neg NEGATIVE Urine Barbiturates Screen Neg NEGATIVE Urine Phencyclidine Screen Neg NEGATIVE Urine Amphetamines Screen Pos NEGATIVE Urine Benzodiazepines Screen Neg NEGATIVE Urine Cocaine Screen Neg NEGATIVE Urine Cannabinoids Screen Pos NEGATIVE Troponin I High Sensitivity 182 *H </=34 ng/L Triglycerides Level 107 < 150 mg/dL Cholesterol Level 126 < 200 mg/dL LDL Cholesterol 65 < 100 mg/dL HDL Cholesterol 48 40-59 mg/dL Thyroid Stimulating Hormone (TSH) 24.79 H 0.55-4.78 uIU/mL Hemoglobin A1c 5.7 <5.7 % A1C B-Type Natriuretic Peptide 662.37 0-100 pg/mL Microbiology Date/Time Source Procedure Growth Status 03/06/25 06:10 Nose MRSA Screen - Final Complete Plan/Recommendation Assessment/plan # chest pain, pleuritic-type of chest pain likely due to pulmonary embolism -EKG showed Afib but no ST changes -Trops 231, 199, 182 #elevated trops, likely NSTEMI type 2 -likely due to demand ischaemia in the setting of Afib with RVR, and Acute HFpEF #Afib with RVR, now controlled rate -currently on rate control with coreg and eliquis -[id number] Score for Atrial Fibrillation Stroke Risk = 3 -Hasbled 3 points # pulmonary embolism -on eliquis # acute on chronic HFpEF likely due to ischemic heart disease and methamphetamine use disorder -BNP 662 -last echo 02/23/25 lvef 50% by visual estimate moderate LVH RV Not well seen severe massive left atrium dilatation Rigth atrium enlarged severe aortic regurg, moderate sclerosis noted severe mitral regurg Mitrall stenosis mild to moderate moderate tricuspid regurg # coronary artery disease status post PCI, patient mentioned 9 stents -last [facility] shows CONCLUSIONS: 1. Mild coronary artery disease. 2. Patent Diag stent ( done by Dr Rendon ) 2020 -currently on ASA and statins # Amphetamine use disorder # Marijuana use disorder -UDS positive for the above # asthma # Hyperlipidemia # Hypertension # Seizures # GERD Plan -considering chest pain is pleuritic type, and patient's frequent use of methamphetamine, we recommend medical therapy -continue with aspirin and statin -continue with rate control with Coreg and Eliquis for anticoagulation, keep potassium greater than four, magnesium greater than two -continue furosemide 40mg daily and GDMT -counselled on cessation of substance use We will sign off from this case, kindly reconsult if needed. Case discussion with Dr Montgomery Plan discussed with: Patient, Other SHANTEL ANDRADE RESIDENT March 06, 2025 16:24
[2025-03-06] MEDS ORDERED: MAGNESIUM OXIDE 400 MG TAB PO ONE (16:45)
[2025-03-06 17:00] VITALS: BP 98/69; PULSE 93; RESP 16; TEMP 97.9; O2SAT 99
[2025-03-06 17:11] LABS: Free T3 2.17 pg/mL (2.3-4.2)
[2025-03-06 17:12] LABS: Free T4 (Free Thyroxine) 1.03 ng/dL (0.89-1.76)
[2025-03-06] MEDS: MAGNESIUM OXIDE 400 MG TAB PO ONE (18:37)
[2025-03-06 20:00] VITALS: PULSE 91
[2025-03-07 08:00] VITALS: PULSE 85; PULSE 96; RESP 19; O2SAT 97
[2025-03-07 08:56] VITALS: BP 106/82; PULSE 90; RESP 18; TEMP 97.7; O2SAT 100
[2025-03-07] MEDS ORDERED: LORazepam 2MG/ML-1ML VIAL IV PRN (11:45)
[2025-03-07 13:00] VITALS: BP 92/54; PULSE 57; RESP 18; TEMP 97.7; O2SAT 98
--- NOTE | 2025-03-07 13:51 | DVHPN2 ---
Subjective Feels better today Reviewed: Care Plan, H&P, Labs, Medications, Previous Orders, Radiology, Other (Consultants) Changes from previous H/P or p: No Changes Objective Vitals Vital Signs Date Time Temp Pulse Resp B/P (MAP) Pulse Ox O2 Delivery O2 Flow Rate FiO2 03/07/25 09:25 106/82 03/07/25 08:56 97.7 90 18 100 97.7 03/07/25 08:00 Room Air* 0 21 Intake/Output Intake and Output 03/07/25 07:00 Intake Total 340 ml Balance 340 ml Intake Oral 340 ml # Voids 3 # Bowel Movements 1 General Appearance: Alert, Oriented X3, Cooperative, No acute distress HEENT: Atraumatic Lungs: Clear to auscultation Cardiovascular: Regular rate Abdomen: Normal bowel sounds, Soft Psych/Mental Status: Mental status NL Medications Current Medications Medications Dose Ordered Sig/Kasandra Route Start Time Stop Time Status Last Admin Dose Admin Aspirin 81 mg DAILY PO 03/06/25 10:00 03/07/25 08:24 81 MG Atorvastatin Calcium 40 mg HS PO 03/05/25 22:00 03/06/25 21:39 40 MG Morphine Sulfate 2 mg Q30MP PRN IV 03/05/25 11:15 Acetaminophen 650 mg Q6HP PRN PO 03/05/25 11:15 Ondansetron HCl 4 mg Q4HP PRN IV 03/05/25 11:15 Nitroglycerin 0.4 mg Q5MINP PRN SL 03/05/25 11:15 Apixaban 5 mg BID PO 03/05/25 22:00 03/07/25 08:26 5 MG Carvedilol 6.25 mg BID PO 03/05/25 22:00 03/07/25 08:25 6.25 MG Famotidine 20 mg DAILY PO 03/06/25 10:00 03/07/25 08:24 20 MG Furosemide 40 mg DAILY PO 03/06/25 10:00 03/07/25 08:23 40 MG Sacubitril/ Valsartan 1 tab DAILY PO 03/06/25 10:00 03/07/25 08:26 1 TAB Spironolactone 25 mg DAILY PO 03/06/25 10:00 03/07/25 08:24 25 MG Amlodipine Besylate 10 mg DAILY PO 03/06/25 10:00 03/07/25 08:25 10 MG Levothyroxine Sodium 150 mcg DAILY PO 03/06/25 10:00 03/07/25 08:25 150 MCG Patient Own Medication 40 mg DAILY PO 03/06/25 10:00 Lorazepam 0.5 mg Q6HP PRN IV 03/07/25 11:45 Laboratory Results Laboratory Tests 03/06/25 07:42 Urinalysis Test 03/05/25 14:30 Urine Color Light-yellow (Yellow) Urine Clarity Clear (Clear) Urine pH 5.5 (5.0-9.0) Urine Specific [place] > 1.050 (1.001-1.035) Urine Protein Trace (Negative) H Urine Ketones Negative (Negative) Urine Blood Negative /uL (Negative) Urine Nitrite Negative (Negative) Urine Bilirubin Negative (Negative) Urine Urobilinogen Normal mg/dL (Negative) Urine Leukocyte Esterase Negative /uL (Negative) Urine RBC 2 /hpf (0 - 4) Urine Microscopic WBC 1 /HPF (0-5) Urine Squamous Epithelial Cells Few /hpf (<5) Urine Bacteria None seen /hpf (None Seen) Urine Mucus Few (None Seen) Urine Glucose Normal mg/dL (Normal) Microbiology Microbiology Date/Time Source Procedure Growth Status 03/06/25 06:10 Nose MRSA Screen - Final Complete Assessment/Plan Assessment/Plan Chest pain/non-STEMI AFib Pulmonary embolism Status post PTCA x9/coronary artery disease Asthma GERD Hypertension Hypothyroidism Positive for marijuana and methamphetamine/patient admits to marijuana but denied methamphetamine use Seizures Prediabetes with A1c 5.7 Plan: Thyroid replacement. Cardiology. Continue current plan of care. Repeat labs. Further plan per orders Plan discussed with: Patient My Orders Orders - VIRGEN GÓMEZ MD Procedure Category Date Status Time Lorazepam 2mg/Ml Inj PHA 03/07/25 In Process (Ativan Inj) 11:45 Date of Service: March 07, 2025 Billing Provider: VIRGEN GÓMEZ MD Common Visit Codes: [id number] INP/OBS CARE(HIGH) VIRGEN GÓMEZ MD March 07, 2025 13:51
[2025-03-07 16:52] VITALS: BP 104/59; PULSE 96; RESP 18; TEMP 97.4; O2SAT 98
[2025-03-07 20:00] VITALS: PULSE 113; O2SAT 97
[2025-03-07 21:00] VITALS: BP 110/60; PULSE 106; RESP 18; TEMP 98; O2SAT 94
[2025-03-08] VITALS (7 sets, daily range): BP systolic 98–108; BP diastolic 51–75; PULSE 65–95; RESP 18–19; TEMP 97.5–98.2; O2SAT 92–98
[2025-03-08 07:23] LABS: Alanine Aminotransferase 17 U/L (7-40); Albumin 4.3 g/dL (3.2-4.8); Alkaline Phosphatase 64 U/L (46-116); Anion Gap 9 (5-15); Aspartate Aminotransferase 17 U/L (13-40); Bilirubin, Total 0.9 mg/dL (0.2-1.0); Calcium 10.1 mg/dL (8.7-10.4); Carbon Dioxide 22 mmol/L (20-31); Chloride 106 mmol/L (98-107); Potassium 4.2 mmol/L (3.5-5.1); Sodium 137 mmol/L (136-145); Total Protein 6.9 g/dL (5.7-8.2)
[2025-03-08 07:25] LABS: Blood Urea Nitrogen 31 mg/dL (9-23); Glucose 107 mg/dL (74-106)
--- NOTE | 2025-03-08 10:14 | DVHPN2 ---
Subjective Feels the same Reviewed: Care Plan, H&P, Labs, Medications, Previous Orders, Radiology, Other (Consultants) Changes from previous H/P or p: No Changes Objective Vitals Vital Signs Date Time Temp Pulse Resp B/P (MAP) Pulse Ox O2 Delivery O2 Flow Rate FiO2 03/08/25 08:58 106/82 03/08/25 08:00 80 18 97 Room Air* 0 21 03/08/25 08:00 97.5 97.5 Intake/Output Intake and Output 03/08/25 07:00 Intake Total 800 ml Balance 800 ml Intake Oral 800 ml # Voids 7 General Appearance: Alert, Oriented X3, Cooperative, No acute distress HEENT: Atraumatic Lungs: Clear to auscultation Cardiovascular: Regular rate Abdomen: Normal bowel sounds, Soft Psych/Mental Status: Mental status NL Medications Current Medications Medications Dose Ordered Sig/Kasandra Route Start Time Stop Time Status Last Admin Dose Admin Aspirin 81 mg DAILY PO 03/06/25 10:00 03/08/25 08:58 81 MG Atorvastatin Calcium 40 mg HS PO 03/05/25 22:00 03/07/25 21:21 40 MG Morphine Sulfate 2 mg Q30MP PRN IV 03/05/25 11:15 Acetaminophen 650 mg Q6HP PRN PO 03/05/25 11:15 Ondansetron HCl 4 mg Q4HP PRN IV 03/05/25 11:15 Nitroglycerin 0.4 mg Q5MINP PRN SL 03/05/25 11:15 Apixaban 5 mg BID PO 03/05/25 22:00 03/08/25 08:58 5 MG Carvedilol 6.25 mg BID PO 03/05/25 22:00 03/08/25 08:57 6.25 MG Sacubitril/ Valsartan 1 tab DAILY PO 03/06/25 10:00 03/08/25 08:58 1 TAB Spironolactone 25 mg DAILY PO 03/06/25 10:00 03/08/25 08:59 25 MG Amlodipine Besylate 10 mg DAILY PO 03/06/25 10:00 03/08/25 08:57 10 MG Levothyroxine Sodium 150 mcg DAILY PO 03/06/25 10:00 03/08/25 08:57 150 MCG Patient Own Medication 40 mg DAILY PO 03/06/25 10:00 Lorazepam 0.5 mg Q6HP PRN IV 03/07/25 11:45 Laboratory Results Laboratory Tests 03/06/25 07:42 03/08/25 06:28 Chemistry Test 03/08/25 06:28 Albumin 4.3 g/dL (3.2-4.8) Calcium Level 10.1 mg/dL (8.7-10.4) Total Protein 6.9 g/dL (5.7-8.2) LFT Test 03/08/25 06:28 Alanine Aminotransferase (ALT) 17 U/L (7-40) Alkaline Phosphatase 64 U/L (46-116) Aspartate Amino Transferase (AST) 17 U/L (13-40) Total Bilirubin 0.9 mg/dL (0.2-1.0) Urinalysis Test 03/05/25 14:30 Urine Color Light-yellow (Yellow) Urine Clarity Clear (Clear) Urine pH 5.5 (5.0-9.0) Urine Specific [place] > 1.050 (1.001-1.035) Urine Protein Trace (Negative) H Urine Ketones Negative (Negative) Urine Blood Negative /uL (Negative) Urine Nitrite Negative (Negative) Urine Bilirubin Negative (Negative) Urine Urobilinogen Normal mg/dL (Negative) Urine Leukocyte Esterase Negative /uL (Negative) Urine RBC 2 /hpf (0 - 4) Urine Microscopic WBC 1 /HPF (0-5) Urine Squamous Epithelial Cells Few /hpf (<5) Urine Bacteria None seen /hpf (None Seen) Urine Mucus Few (None Seen) Urine Glucose Normal mg/dL (Normal) Microbiology Microbiology Date/Time Source Procedure Growth Status 03/06/25 06:10 Nose MRSA Screen - Final Complete Assessment/Plan Assessment/Plan Chest pain/non-STEMI AFib Pulmonary embolism Status post PTCA x9/coronary artery disease Asthma GERD Hypertension Hypothyroidism Positive for marijuana and methamphetamine/patient admits to marijuana but denied methamphetamine use Seizures Prediabetes with A1c 5.7 Plan: Acute kidney injury likely secondary to the Lasix and to the Entresto. We will stop Lasix for now and monitor kidney function. Possible home tomorrow if stable Plan discussed with: Patient My Orders Orders - VIRGEN GÓMEZ MD Procedure Category Date Status Time Lorazepam 2mg/Ml Inj PHA 03/07/25 In Process (Ativan Inj) 11:45 B-Type Natriuretic LAB 03/09/25 Verified Peptide 06:00 Comprehensive LAB 03/09/25 Verified Metabolic Panel 06:00 Date of Service: March 08, 2025 Billing Provider: VIRGEN GÓMEZ MD Common Visit Codes: [id number] INP/OBS CARE(HIGH) VIRGEN GÓMEZ MD March 08, 2025 10:14
[2025-03-08] MEDS: ACETAMINOPHEN 325 MG TAB PO PRN (11:47)
[2025-03-09] VITALS (8 sets, daily range): BP systolic 100–110; BP diastolic 66–79; PULSE 65–101; RESP 16–19; TEMP 97.5–98.1; O2SAT 95–98
[2025-03-09 06:54] LABS: Alanine Aminotransferase 13 U/L (7-40); Albumin 4.3 g/dL (3.2-4.8); Alkaline Phosphatase 66 U/L (46-116); Anion Gap 10 (5-15); Aspartate Aminotransferase 17 U/L (13-40); BUN/Creatinine Ratio 28.9 (10.0-20.0); Calcium 9.9 mg/dL (8.7-10.4); Carbon Dioxide 22 mmol/L (20-31); Chloride 106 mmol/L (98-107); Glucose 101 mg/dL (74-106); Sodium 138 mmol/L (136-145); Total Protein 6.7 g/dL (5.7-8.2)
[2025-03-09 07:04] LABS: Blood Urea Nitrogen 28 mg/dL (9-23)
[2025-03-09 08:20] LABS: Bilirubin, Total 0.7 mg/dL (0.2-1.0)
--- NOTE | 2025-03-09 12:03 | DVHPN2 ---
Subjective improved Reviewed: Care Plan, H&P, Labs, Medications, Previous Orders, Radiology, Other (Consultants) Changes from previous H/P or p: No Changes Objective Vitals Vital Signs Date Time Temp Pulse Resp B/P (MAP) Pulse Ox O2 Delivery O2 Flow Rate FiO2 03/09/25 10:13 72 110/72 03/09/25 08:38 97.5 16 95 97.5 03/09/25 08:00 Nasal Cannula* 2 28 Intake/Output Intake and Output 03/09/25 07:00 Intake Total 1383 ml Output Total 850 ml Balance 533 ml Intake Oral 1383 ml Output Urine Total 850 ml # Voids 3 General Appearance: Alert, Oriented X3, Cooperative, No acute distress HEENT: Atraumatic Lungs: Clear to auscultation Cardiovascular: Regular rate Abdomen: Normal bowel sounds, Soft Psych/Mental Status: Mental status NL Medications Current Medications Medications Dose Ordered Sig/Kasandra Route Start Time Stop Time Status Last Admin Dose Admin Aspirin 81 mg DAILY PO 03/06/25 10:00 03/09/25 10:13 81 MG Atorvastatin Calcium 40 mg HS PO 03/05/25 22:00 03/08/25 21:57 40 MG Acetaminophen 650 mg Q6HP PRN PO 03/05/25 11:15 03/08/25 11:47 650 MG Apixaban 5 mg BID PO 03/05/25 22:00 03/09/25 10:13 5 MG Carvedilol 6.25 mg BID PO 03/05/25 22:00 03/09/25 10:13 6.25 MG Sacubitril/ Valsartan 1 tab DAILY PO 03/06/25 10:00 03/09/25 11:02 1 TAB Spironolactone 25 mg DAILY PO 03/06/25 10:00 03/09/25 10:14 25 MG Amlodipine Besylate 10 mg DAILY PO 03/06/25 10:00 03/09/25 10:12 10 MG Levothyroxine Sodium 150 mcg DAILY PO 03/06/25 10:00 03/09/25 10:12 150 MCG Patient Own Medication 40 mg DAILY PO 03/06/25 10:00 Laboratory Results Laboratory Tests 03/06/25 07:42 03/09/25 05:25 Chemistry Test 03/09/25 05:25 Albumin 4.3 g/dL (3.2-4.8) Calcium Level 9.9 mg/dL (8.7-10.4) Total Protein 6.7 g/dL (5.7-8.2) Cardiac Markers Test 03/09/25 05:25 B-Type Natriuretic Peptide 55.31 pg/mL (0-100) LFT Test 03/09/25 05:25 Alanine Aminotransferase (ALT) 13 U/L (7-40) Alkaline Phosphatase 66 U/L (46-116) Aspartate Amino Transferase (AST) 17 U/L (13-40) Total Bilirubin 0.7 mg/dL (0.2-1.0) Urinalysis Test 03/05/25 14:30 Urine Color Light-yellow (Yellow) Urine Clarity Clear (Clear) Urine pH 5.5 (5.0-9.0) Urine Specific [place] > 1.050 (1.001-1.035) Urine Protein Trace (Negative) H Urine Ketones Negative (Negative) Urine Blood Negative /uL (Negative) Urine Nitrite Negative (Negative) Urine Bilirubin Negative (Negative) Urine Urobilinogen Normal mg/dL (Negative) Urine Leukocyte Esterase Negative /uL (Negative) Urine RBC 2 /hpf (0 - 4) Urine Microscopic WBC 1 /HPF (0-5) Urine Squamous Epithelial Cells Few /hpf (<5) Urine Bacteria None seen /hpf (None Seen) Urine Mucus Few (None Seen) Urine Glucose Normal mg/dL (Normal) Microbiology Microbiology Date/Time Source Procedure Growth Status 03/06/25 06:10 Nose MRSA Screen - Final Complete Assessment/Plan Assessment/Plan Chest pain/non-STEMI AFib Pulmonary embolism Status post PTCA x9/coronary artery disease Asthma GERD Hypertension Hypothyroidism Positive for marijuana and methamphetamine/patient admits to marijuana but denied methamphetamine use Seizures Prediabetes with A1c 5.7 PT eval ss for home PT Plan discussed with: Patient My Orders Orders - LINA FOY MD Procedure Category Date Status Time Pt Request For Service PT 03/09/25 Logged 10:50 * [employer] CONS 03/09/25 Transmitted Consult Date of Service: March 09, 2025 Billing Provider: LINA FOY MD Common Visit Codes: [id number] INP/OBS CARE(MOD) LINA FOY MD March 09, 2025 12:03
[2025-03-09] MEDS: clonazePAM 0.5 MG TAB PO PRN (16:40)
[2025-03-10] VITALS (8 sets, daily range): BP systolic 96–107; BP diastolic 58–85; PULSE 63–109; RESP 16–19; TEMP 97.5–98; O2SAT 94–99
--- NOTE | 2025-03-10 09:48 | DVHPN2 ---
Subjective on and off confused Reviewed: Care Plan, H&P, Labs, Medications, Previous Orders, Radiology, Other (Consultants) Changes from previous H/P or p: No Changes Objective Vitals Vital Signs Date Time Temp Pulse Resp B/P (MAP) Pulse Ox O2 Delivery O2 Flow Rate FiO2 03/10/25 05:00 98.0 78 16 107/58 (74) 96 98.0 03/09/25 20:00 Room Air* 0 21 Intake/Output Intake and Output 03/10/25 07:00 Intake Total 900 ml Balance 900 ml Intake Oral 900 ml # Voids 3 General Appearance: Alert, Oriented X3, Cooperative, No acute distress HEENT: Atraumatic Lungs: Clear to auscultation Cardiovascular: Regular rate Abdomen: Normal bowel sounds, Soft Psych/Mental Status: Mental status NL Medications Current Medications Medications Dose Ordered Sig/Kasandra Route Start Time Stop Time Status Last Admin Dose Admin Aspirin 81 mg DAILY PO 03/06/25 10:00 03/09/25 10:13 81 MG Atorvastatin Calcium 40 mg HS PO 03/05/25 22:00 03/09/25 21:06 40 MG Acetaminophen 650 mg Q6HP PRN PO 03/05/25 11:15 03/08/25 11:47 650 MG Apixaban 5 mg BID PO 03/05/25 22:00 03/09/25 21:10 5 MG Carvedilol 6.25 mg BID PO 03/05/25 22:00 03/09/25 21:11 6.25 MG Sacubitril/ Valsartan 1 tab DAILY PO 03/06/25 10:00 03/09/25 11:02 1 TAB Spironolactone 25 mg DAILY PO 03/06/25 10:00 03/09/25 10:14 25 MG Amlodipine Besylate 10 mg DAILY PO 03/06/25 10:00 03/09/25 10:12 10 MG Levothyroxine Sodium 150 mcg DAILY PO 03/06/25 10:00 03/09/25 10:12 150 MCG Patient Own Medication 40 mg DAILY PO 03/06/25 10:00 Clonazepam 0.5 mg Q8HP PRN PO 03/09/25 15:30 03/09/25 16:40 0.5 MG Quetiapine Fumarate 50 mg HS PO 03/10/25 22:00 UNV Laboratory Results Laboratory Tests 03/06/25 07:42 03/09/25 05:25 Urinalysis Test 03/05/25 14:30 Urine Color Light-yellow (Yellow) Urine Clarity Clear (Clear) Urine pH 5.5 (5.0-9.0) Urine Specific [place] > 1.050 (1.001-1.035) Urine Protein Trace (Negative) H Urine Ketones Negative (Negative) Urine Blood Negative /uL (Negative) Urine Nitrite Negative (Negative) Urine Bilirubin Negative (Negative) Urine Urobilinogen Normal mg/dL (Negative) Urine Leukocyte Esterase Negative /uL (Negative) Urine RBC 2 /hpf (0 - 4) Urine Microscopic WBC 1 /HPF (0-5) Urine Squamous Epithelial Cells Few /hpf (<5) Urine Bacteria None seen /hpf (None Seen) Urine Mucus Few (None Seen) Urine Glucose Normal mg/dL (Normal) Microbiology Microbiology Date/Time Source Procedure Growth Status 03/06/25 06:10 Nose MRSA Screen - Final Complete Assessment/Plan Assessment/Plan 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 AFib on AC Pulmonary embolism Status post PTCA x9/coronary artery disease Asthma GERD Hypertension Hypothyroidism Positive for marijuana and methamphetamine/patient admits to marijuana but denied methamphetamine use Seizures Prediabetes with A1c 5.7 PT eval ss for home PT seroquel Plan discussed with: Patient My Orders Orders - LINA FOY MD Procedure Category Date Status Time Pt Request For Service PT 03/09/25 Logged 10:50 * [employer] Officer CONS 03/09/25 Transmitted Consult Clonazepam Tablet PHA 03/09/25 In Process (Klonopin Tablet) 15:30 Quetiapine Fumarate PHA 03/10/25 Logged Tablet (Seroquel Tab 22:00 Date of Service: March 10, 2025 Billing Provider: LINA FOY MD Common Visit Codes: [id number] INP/OBS CARE(HIGH) LINA FOY MD March 10, 2025 09:48
[2025-03-10] MEDS: QUEtiapine FUMARATE 25 MG TAB PO SCH (21:03)
[2025-03-11 01:00] VITALS: BP 94/66; PULSE 65; RESP 18; TEMP 97; O2SAT 95
[2025-03-11 05:00] VITALS: BP 98/69; PULSE 62; RESP 17; TEMP 97.2; O2SAT 96
[2025-03-11 06:43] LABS: Anion Gap 9 (5-15); Carbon Dioxide 25 mmol/L (20-31); Chloride 107 mmol/L (98-107); Potassium 4.3 mmol/L (3.5-5.1); Sodium 141 mmol/L (136-145)
[2025-03-11 06:44] LABS: Calcium 9.1 mg/dL (8.7-10.4)
[2025-03-11 06:50] LABS: Blood Urea Nitrogen 35 mg/dL (9-23); Glucose 110 mg/dL (74-106)
[2025-03-11 07:02] LABS: Basophils # (auto) 0 10 ^3/uL (0-0.2); Basophils % (auto) 0.6 % (0.0-2.0); Eosinophils # (auto) 0.2 10 ^3/uL (0-0.8); Eosinophils % (auto) 3.6 % (0.0-7.0); Hematocrit 43.2 % (36.0-46.0); Hemoglobin 14.6 g/dL (12.2-16.2); Lymphocytes # (auto) 1.9 10 ^3/uL (0.4-5.4); Lymphocytes % (auto) 42.1 % (10.0-50.0); Mean Corpuscular Hemoglobin 30.8 pg (28.0-32.0); Mean Corpuscular Hgb Conc. 33.9 g/dL (32.0-36.0); Monocytes # (auto) 0.4 10 ^3/uL (0-1.3); Monocytes % (auto) 9.4 % (0.0-12.0); Neutrophils % (auto) 44.3 % (37.0-80.0); Nucleated Red Blood Cells % 0.4 %; Platelet Count (auto) 206 10^3/uL (140-450); Red Blood Cells 4.74 10^6/uL (4.0-5.20); White Blood Cell 4.5 10^3/uL (4.4-10.8)
[2025-03-11 08:20] VITALS: PULSE 79; RESP 16; O2SAT 96
[2025-03-11 09:00] VITALS: BP 104/62; PULSE 79; RESP 16; TEMP 97.3; O2SAT 96
[2025-03-11] MEDS: PANTOPRAZOLE 40 MG TAB PO SCH (11:00)
[2025-03-11 12:52] VITALS: BP 98/65; PULSE 80; RESP 20; TEMP 97.8; O2SAT 98
[2025-03-11] MEDS ORDERED: QUET1TAB11 PO (14:12)
--- NOTE | 2025-03-11 14:15 | DVHDS2 ---
Discharge Summary Date of Admission March 05, 2025 at 11:04 Date of Discharge: March 11, 2025 Labs/Diagnostic Data: Laboratory Results Test 03/11/25 05:40 03/09/25 05:25 03/08/25 06:28 03/06/25 07:42 White Blood Count 4.5 10^3/uL (4.4-10.8) Red Blood Count 4.74 10^6/uL (4.0-5.20) Hemoglobin 14.6 g/dL (12.2-16.2) Hematocrit 43.2 % (36.0-46.0) Mean Corpuscular Volume 91.0 fL (80.0-100.0) Mean Corpuscular Hemoglobin 30.8 pg (28.0-32.0) Mean Corpuscular Hemoglobin Concent 33.9 g/dL (32.0-36.0) Red Cell Distribution Width 14.0 % (11.8-14.3) Platelet Count 206 10^3/uL (140-450) Mean Platelet Volume 9.1 fL (6.9-10.8) Neutrophils (%) (Auto) 44.3 % (37.0-80.0) Lymphocytes (%) (Auto) 42.1 % (10.0-50.0) Monocytes (%) (Auto) 9.4 % (0.0-12.0) Eosinophils (%) (Auto) 3.6 % (0.0-7.0) Basophils (%) (Auto) 0.6 % (0.0-2.0) Neutrophils # (Auto) 2.0 10 ^3/uL (1.6-8.6) Lymphocytes # (Auto) 1.9 10 ^3/uL (0.4-5.4) Monocytes # (Auto) 0.4 10 ^3/uL (0-1.3) Eosinophils # (Auto) 0.2 10 ^3/uL (0-0.8) Basophils # (Auto) 0 10 ^3/uL (0-0.2) Nucleated Red Blood Cells 0.4 % Sodium Level 141 mmol/L (136-145) Potassium Level 4.3 mmol/L (3.5-5.1) Chloride Level 107 mmol/L (98-107) Carbon Dioxide Level 25 mmol/L (20-31) Anion Gap 9 (5-15) Blood Urea Nitrogen 35 mg/dL (9-23) Creatinine 1.06 mg/dL (0.550-1.02) Glomerular Filtration Rate Calc 55 mL/min (>90) BUN/Creatinine Ratio 33.0 (10.0-20.0) Serum Glucose 110 mg/dL (74-106) Calcium Level 9.1 mg/dL (8.7-10.4) Total Bilirubin 0.7 mg/dL (0.2-1.0) Aspartate Amino Transferase (AST) 17 U/L (13-40) Alanine Aminotransferase (ALT) 13 U/L (7-40) Alkaline Phosphatase 66 U/L (46-116) B-Type Natriuretic Peptide 55.31 pg/mL (0-100) Total Protein 6.7 g/dL (5.7-8.2) Albumin 4.3 g/dL (3.2-4.8) Troponin I High Sensitivity 84 ng/L (</=34) Magnesium Level 1.9 mg/dL (1.6-2.6) Free Thyroxine (T4) Calculated 1.03 ng/dL (0.89-1.76) Free Triiodothyronine (T3) pg/mL 2.17 pg/mL (2.3-4.2) Test 03/05/25 14:30 03/05/25 09:41 03/05/25 06:23 Urine Color Light-yellow (Yellow) Urine Clarity Clear (Clear) Urine pH 5.5 (5.0-9.0) Urine Specific [employer] [place] > 1.050 (1.001-1.035) Urine Protein Trace (Negative) Urine Ketones Negative (Negative) Urine Blood Negative /uL (Negative) Urine Nitrite Negative (Negative) Urine Bilirubin Negative (Negative) Urine Urobilinogen Normal mg/dL (Negative) Urine Leukocyte Esterase Negative /uL (Negative) Urine RBC 2 /hpf (0 - 4) Urine Microscopic WBC 1 /HPF (0-5) Urine Squamous Epithelial Cells Few /hpf (<5) Urine Bacteria None seen /hpf (None Seen) Urine Mucus Few (None Seen) Urine Glucose Normal mg/dL (Normal) Urine Opiates Screen Neg (NEGATIVE) Urine Fentanyl Screen Neg (NEGATIVE) Urine Barbiturates Screen Neg (NEGATIVE) Urine Phencyclidine Screen Neg (NEGATIVE) Urine Amphetamines Screen Pos (NEGATIVE) Urine Benzodiazepines Screen Neg (NEGATIVE) Urine Cocaine Screen Neg (NEGATIVE) Urine Cannabinoids Screen Pos (NEGATIVE) Triglycerides Level 107 mg/dL (< 150) Cholesterol Level 126 mg/dL (< 200) LDL Cholesterol 65 mg/dL (< 100) HDL Cholesterol 48 mg/dL (40-59) Thyroid Stimulating Hormone (TSH) 24.79 uIU/mL (0.55-4.78) Hemoglobin A1c 5.7 % A1C (<5.7) Other Laboratory Tests 03/11/25 05:40 Brief Hx & Hospital Course: chest pain non cardiac 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 AFib on AC Pulmonary embolism Status post PTCA x9/coronary artery disease Asthma GERD Hypertension Hypothyroidism Positive for marijuana and methamphetamine/patient admits to marijuana but denied methamphetamine use Seizures Prediabetes with A1c 5.7 discharged to home with chest pain subsided by the time of discharge pt states she can walk on her own sent meds to pharmacy for delivery Condition at Discharge: Fair Final Diagnosis/Problems List see above Discharge Disposition: Home with Health Services Discharge Instruct/Medications Diet: Cardiac 2g Na,low cholest Activity: No Restrictions, As Tolerated Discharge Statement: "Patient was advised to return to the ER or call 911 if any headaches, dizziness, shortness of breath, chest pain, abdominal pain, bleeding, fevers, or worsening of medical condition. Patient was counseled about treatment plan, medications, possible side effects, patientverbalized understanding. All questions were answered to the best of my ability. This discharge took greater then 30 minutes in planning, reviewing documentation, counseling the patient, and discussing with other team members." ASSESSMENT ASSESSMENT Assessment Date of Service: March 11, 2025 Billing Provider: MICAELA PARRA DO Common Visit Codes: [id number] DISCH DAY >30min MICAELA PARRA DO March 11, 2025 14:15
[2025-03-11 15:53] VITALS: BP 110/62; PULSE 80; RESP 16; TEMP 36.6; O2SAT 94
== END 2025-03-11 18:45 | disposition home or self-care (01) | DRG 280 ==
LOC: ER 05:58 → EDBD 05:58 → OVERFLOW 11:04 → TELE-CENTR 21:40
PROVIDERS: ADMIT Internal Medicine; ATTEND Internal Medicine
DX: R07.89 Other chest pain (principal); I26.99 Other pulmonary embolism without acute cor pulmonale; I21.A1 Myocardial infarction type 2; J96.01 Acute respiratory failure with hypoxia; I13.0 Hypertensive heart and chronic kidney disease with heart failure and stage 1 through stage 4 chronic kidney disease, or unspecified chronic kidney disease; I50.30 Unspecified diastolic (congestive) heart failure; I48.91 Unspecified atrial fibrillation; F10.90 Alcohol use, unspecified, uncomplicated; N18.9 Chronic kidney disease, unspecified; K21.9 Gastro-esophageal reflux disease without esophagitis; J45.909 Unspecified asthma, uncomplicated; E03.9 Hypothyroidism, unspecified; R56.9 Unspecified convulsions; F15.10 Other stimulant abuse, uncomplicated; R73.03 Prediabetes; E78.5 Hyperlipidemia, unspecified; I08.0 Rheumatic disorders of both mitral and aortic valves; F12.10 Cannabis abuse, uncomplicated; Y90.9 Presence of alcohol in blood, level not specified; I25.10 Atherosclerotic heart disease of native coronary artery without angina pectoris; Z88.1 Allergy status to other antibiotic agents; Z90.49 Acquired absence of other specified parts of digestive tract; Z90.710 Acquired absence of both cervix and uterus; Z82.49 Family history of ischemic heart disease and other diseases of the circulatory system; Z86.711 Personal history of pulmonary embolism; Z98.61 Coronary angioplasty status; I25.2 Old myocardial infarction; Z91.148 Patient's other noncompliance with medication regimen for other reason; Z83.3 Family history of diabetes mellitus; Z72.0 Tobacco use; Z79.01 Long term (current) use of anticoagulants; Y92.89 Other specified places as the place of occurrence of the external cause
CPT/HCPCS: 36415; 71045; 71275; 80048; 80053; 80061; 80307; 81001; 83036; 83735; 83880; 84439; 84443; 84481; 84484; 85025; 87081; 93005; 96374; 96375; 97116; 97163; 97530; 99291; G0378

== ENCOUNTER 2025-10-17 21:11 | Emergency (ER) | payer OTHER, MEDICAID ==
[~2025-10-17] VITALS: Ht 162.6 cm; Wt 59.0 kg
[~2025-10-17 21:11] MED LIST changes: +QUET1TAB11 PO
--- NOTE | 2025-10-17 21:25 | ECG ---
[facility] Test Date: 2025-10-17 Test Time: 21:24:10 Pat Name: VIBHA VARGHESE Department: [facility] ED Patient ID: [id number] Room: Gender: F Hand [employer]: penny : 1950 Requested By: EMERGENCY EMERGENCY Order Number: [id number] Reading MD: Measurements Intervals [place] Rate: 107 P: 0 [place]: 0 QRS: 45 QRSD: 84 T: 92 QT: 378 QTc: 505 Interpretive Statements Atrial fibrillation LVH with secondary repolarization abnormality Prolonged QT interval Please click the below link to view image of tracing.
[2025-10-17 21:34] LABS: Hematocrit 40.5 % (36.0-46.0); Hemoglobin 13.5 g/dL (12.2-16.2); Mean Corpuscular Hemoglobin 30.7 pg (28.0-32.0); Mean Corpuscular Volume 92.3 fL (80.0-100.0); Nucleated Red Blood Cells % 0.1 %
[2025-10-17 21:51] LABS: Alanine Aminotransferase 16 U/L (7-40); Albumin 4.0 g/dL (3.2-4.8); Alkaline Phosphatase 57 U/L (46-116); Anion Gap 10 (5-15); BUN/Creatinine Ratio 14.4 (10.0-20.0); Bilirubin, Total 0.6 mg/dL (0.2-1.0); Blood Urea Nitrogen 14 mg/dL (9-23); Calcium 8.9 mg/dL (8.7-10.4); Carbon Dioxide 24 mmol/L (20-31); Chloride 109 mmol/L (98-107); Glucose 121 mg/dL (74-106); Potassium 4.1 mmol/L (3.5-5.1); Sodium 143 mmol/L (136-145); Total Protein 6.4 g/dL (5.7-8.2)
--- NOTE | 2025-10-17 22:27 | DVH ---
INDICATION: SOB/CHEST PAIN TECHNIQUE: Frontal view of the chest. COMPARISON: XY CHEST PORTABLE on DOS: 03/05/25, XY CHEST XRAY 1 VIEW on DOS: 02/23/25, CT CHEST WITHOUT CONTRAST on DOS: 11/29/24, CT CHEST WITHOUT CONTRAST on DOS: 11/02/24, XY CHEST PORTABLE on DOS: 11/01/24 FINDINGS/IMPRESSION: Prominence of the interstitial markings. Subsegmental atelectasis versus scarring within the left lower lung. Unchanged enlarged cardiomediastinal silhouette. No pleural effusion or pneumothorax. Unchanged osseous structures.
--- NOTE | 2025-10-17 23:03 | ED.PDOC ---
History of Present Illness HPI Comments 75-year-old female who came to ER for shortness of breath. Patient does have history of hypertension asthma and AFib. Has been having shortness of breath since yesterday, progressively worsening, associated some chest discomfort. Denies any cough or fever. Saturating 96% on room air Chief Complaint: Shortness of Breath Time Seen by MD: 23:02 Primary Care Provider: CL Rasheed Notes: Nurses Notes Allergies: Coded Allergies: Levofloxacin (Verified Allergy, Intermediate, RASH/HIVES, 01/23/19) Home Meds Active Scripts Quetiapine Fumerate (QUETIAPINE FUMARATE) 25 Mg Tab, 50 MG PO HS for 30 Days, #30 TAB 3 Refills Prov:MICAELA PARRA DO 03/11/25 Levothyroxine Sodium (Levothyroxine Sodium) 150 Mcg Tab, 1 TAB PO DAILY for 30 Days, #30 TAB 5 Refills Prov:BISI SAUNDERS SLATE TRIMMER 02/26/25 Apixaban Base (ELIQUIS) 5 Mg Tab, 5 MG PO BID for 60 Days, #120 TAB Prov:BISI SAUNDERS SLATE TRIMMER 02/26/25 Albuterol Sulfate (Albuterol Sulfate Hfa) 108 Mcg/Act Aer, 108 MCG IN Q2HPRN PRN for 1 Day, AER Prov:MELISSA WHITMAN DO 08/18/23 Potassium Chloride (POTASSIUM CHLORIDE CR) 10 Meq Tb, 10 MEQ PO DAILY, #30 Hold for 5 days Prov:BRYAN HAUSER MD 10/18/21 Reported Medications Dicyclomine Hcl (Dicyclomine Hcl) 20 Mg Tab, 20 MG PO BID for 30 Days, MG 02/29/20 Carvedilol (COREG) 3.125 Mg Tab, 6.25 MG OR BID, TAB 02/29/20 Omeprazole (Gnp Omeprazole) 20 Mg Tab, 40 MG PO DAILY, TAB 07/16/19 Famotidine (Famotidine) 20 Mg Tab, 20 MG PO DAILY for 30 Days, MG 07/16/19 Clopidogrel Bisulfate (CLOPIDOGREL) 75 Mg Tab, 1 TAB PO DAILY, #90 TAB 1 Refill 01/24/19 Apixaban Base (ELIQUIS) 5 Mg Tab, 5 MG OR BID for 90 Days, #180 TAB 01/24/19 Furosemide (Furosemide) 40 Mg Tab, 40 MG PO DAILY for 30 Days 01/24/19 Sacubitril-Valsartan (Entresto 24-26 mg) 1 Tab Tab, 1 TAB PO, TAB 01/24/19 Docusate Sodium (Docusate Sodium) 100 Mg Tab, 100 MG PO DAILYP PRN for FOR CONSTIPATION for 30 Days, MG 01/24/19 Spironolactone (Spironolactone) 25 Mg Tab, 1 TAB PO DAILY, #90 TAB 1 Refill 01/24/19 Atorvastatin Calcium (ATORVASTATIN CALCIUM) 80 Mg Tab, 10 MG PO DAILY 04/30/18 Amlodipine Besylate (Amlodipine Besylate) 10 Mg Tab, 10 MG PO DAILY 04/30/18 Information Source: Patient Mode of Arrival: EMS Past Medical History PAST MEDICAL HISTORY: AFIB, Asthma, CAD, GERD, High Lipids, HTN, VA, PE, Seizures Surgical History: Appendectomy, Hernia Repair, Hysterectomy, PTCA PROCESS CONTROL ENGINEER History: No Pertinent PROCESS CONTROL ENGINEER History Family History Family History: Reviewed,noncontributory to illness, Unknown, Family hx of heart emma, Family hx of HTN Social History Smoker: Cigarettes Alcohol: Denies ETOH Use Drugs: Denies Drug Use Lives In: Home Constitutional: denies: chills, diaphoresis, fatigue, fever, malaise, sweats, weakness, others EENTM: denies: blurred vision, double vision, ear bleeding, ear discharge, ear drainage, ear pain, ear ringing, eye pain, eye redness, hearing loss, mouth pain, mouth swelling, nasal discharge, nose bleeding, nose congestion, nose pain, photophobia, tearing, throat pain, throat swelling, voice changes, others Respiratory: reports: SOB at rest, shortness of breath; denies: cough, hemoptysis, orthopnea, SOB with excertion, stridor, wheezing, others Cardiovascular: denies: chest pain, dizzy spells, diaphoresis, Dyspnea on exertion, edema, irregular heart beat, left arm pain, lightheadedness, palpitations, PND, syncope, others Gastrointestinal: denies: abdomen distended, abdominal pain, blood streaked bowels, constipated, diarrhea, dysphagia, difficulty swallowing, hematemesis, melena, nausea, poor appetite, poor fluid intake, rectal bleeding, rectal pain, vomiting, others Genitourinary: denies: abnormal vagina bleeding, burning, dyspareunia, dysuria, flank pain, frequency, hematuria, incontinence, pain, , vagina discharge, urgency, others Neurological: denies: dizziness, fainting, headache, left sided numbness, left sided weakness, numbness, paresthesia, pre-existing deficit, right sided numbness, right sided weakness, seizure, speech problems, tingling, tremors, weakness, others Musculoskeletal: denies: back pain, gout, joint pain, joint swelling, muscle pain, muscle stiffness, neck pain, others Integumetry: denies: bruises, change in color, change in hair/nails, dryness, laceration, lesions, lumps, rash, wounds, others Allergic/Immunocompromised: denies: Difficulty Healing, Frequent Infections, Hives, Itching, others Hematologic/Lymphatic: denies: anemia, blood clots, easy bleeding, easy bruising, swollen glands, others Endocrine: denies: excessive hunger, excessive sweating, excessive thirst, excessive urination, flushing, intolerance to cold, intolerance to heat, unexplained weight gain, unexplained weight loss, others Psychiatric: denies: anxiety, bipolar disorder, depression, hopeless, panic disorder, schizophrenia, sleepless, suicidal, others Physical Exam General Appearance: No Apparent Distress, Normal HEENT: Normal ENT Inspection, Pharynx Normal, TMs Normal Neck: Full Range of Motion, Non-Tender, Normal, Normal Inspection Respiratory: Chest Non-Tender, Lungs Clear, No Accessory Muscle Use, No Respiratory Distress, Normal Breath Sounds Cardiovascular: No Edema, No JVD, No Murmur, No Gallop, Normal Peripheral Pulses, Regular Rate/Rhythm Breast Exam: Deferred Gastrointestinal: No Organomegaly, Non Tender, No Pulsatile Mass, Normal Bowel Sounds, Soft Genitalia: Deferred Pelvic: Deferred Rectal: Deferred Extremities: No calf tenderness, Normal capillary refill, Normal inspection, Normal range of motion, Non-tender, No pedal edema Musculoskeletal : Apperance: Normal Neurologic: Alert, director of infection prevention II-XII nml as Tested, No Motor Deficits, Normal Affect, Normal Mood, No Sensory Deficits Cerebellar Function: Normal Reflexes: Normal Skin: Dry, Normal Color, Warm Lymphatic: No Adenopathy Was a procedure done? Was a procedure done?: No EKG EKG : Pulse Rate (adult): 107 Cardiac Rhythm: Afib Differential Dx Considerations may include: Anemia, electrolyte imbalance, asthma, COPD X-Ray, Labs, Meds, VS Vital Signs Date Time Temp Pulse Resp B/P (MAP) Pulse Ox O2 Delivery O2 Flow Rate FiO2 10/17/25 23:30 95 20 97 Room Air 10/17/25 23:30 98.2 95 20 124/88 (100) 97 98.2 10/17/25 23:19 16 95 Room Air* 0 21 10/17/25 23:03 107 10/17/25 21:24 107 10/17/25 21:11 98.3 108 32 148/86 96 98.3 Lab Test 10/18/25 00:12 10/17/25 22:13 10/17/25 21:17 Range/Units Troponin I High Sensitivity 147 *H 140 *H 144 *H </=34 ng/L White Blood Count 6.1 4.4-10.8 10^3/uL Red Blood Count 4.39 4.0-5.20 10^6/uL Hemoglobin 13.5 12.2-16.2 g/dL Hematocrit 40.5 36.0-46.0 % Mean Corpuscular Volume 92.3 80.0-100.0 fL Mean Corpuscular Hemoglobin 30.7 28.0-32.0 pg Mean Corpuscular Hemoglobin Concent 33.3 32.0-36.0 g/dL Red Cell Distribution Width 15.4 H 11.8-14.3 % Platelet Count 192 140-450 10^3/uL Mean Platelet Volume 8.2 6.9-10.8 fL Neutrophils (%) (Auto) 60.9 37.0-80.0 % Lymphocytes (%) (Auto) 31.8 10.0-50.0 % Monocytes (%) (Auto) 4.4 0.0-12.0 % Eosinophils (%) (Auto) 2.4 0.0-7.0 % Basophils (%) (Auto) 0.5 0.0-2.0 % Neutrophils # (Auto) 3.7 1.6-8.6 10 ^3/uL Lymphocytes # (Auto) 1.9 0.4-5.4 10 ^3/uL Monocytes # (Auto) 0.3 0-1.3 10 ^3/uL Eosinophils # (Auto) 0.1 0-0.8 10 ^3/uL Basophils # (Auto) 0 0-0.2 10 ^3/uL Nucleated Red Blood Cells 0.1 % Sodium Level 143 136-145 mmol/L Potassium Level 4.1 3.5-5.1 mmol/L Chloride Level 109 H 98-107 mmol/L Carbon Dioxide Level 24 20-31 mmol/L Anion Gap 10 5-15 Blood Urea Nitrogen 14 9-23 mg/dL Creatinine 0.97 0.550-1.02 mg/dL Glomerular Filtration Rate Calc 61 >90 mL/min BUN/Creatinine Ratio 14.4 10.0-20.0 Serum Glucose 121 H 74-106 mg/dL Calcium Level 8.9 8.7-10.4 mg/dL Total Bilirubin 0.6 0.2-1.0 mg/dL Aspartate Amino Transferase (AST) 24 13-40 U/L Alanine Aminotransferase (ALT) 16 7-40 U/L Alkaline Phosphatase 57 46-116 U/L B-Type Natriuretic Peptide 405.58 0-100 pg/mL Total Protein 6.4 5.7-8.2 g/dL Albumin 4.0 3.2-4.8 g/dL Current Medications Medications (Trade) Dose Ordered Sig/Kasandra Route Start Time Stop Time Status Last Admin Albuterol (Ventolin Medneb) 5 mg ONCE ONCE NEB 10/17/25 23:00 10/17/25 23:01 DC 10/17/25 23:19 Ipratropium [place] (Atrovent Medneb) 0.5 mg ONCE ONCE NEB 10/17/25 23:00 10/17/25 23:01 DC 10/17/25 23:19 Prednisone 40 mg ONCE ONCE PO 10/17/25 23:00 10/17/25 23:01 DC 10/17/25 23:42 Time of 1ST Reevaluation: 23:00 Reevaluation 1ST: Unchanged Patient Education/Counseling: Diagnosis, Treatment Family Education/Counseling: No Family Present SEPSIS Sepsis Screen Date sepsis recognized/suspect: Oct 17, 2025 Time Sepsis recognized/suspect: 2110 Recent Procedure: No On Antibiotic Therapy: No Respiratory Rate >20: Yes Heart Rate >90: Yes Temp<36 C (96.8 F) or >38.3 C: No SBP <90 or MAP <65 mmHG: No New Acute Mental Status Change: No Is the patient on CPAP, BIPAP,: No Physician Orders Chest Portable (10/17/25 21:13) Urinalysis (10/17/25 21:13) Electrocardigram (10/17/25 22:13) Electrocardigram (10/18/25 00:13) Aspirin Tablet (10/18/25 01:15) Vital Signs Date Time Temp Pulse Resp B/P (MAP) Pulse Ox O2 Delivery O2 Flow Rate FiO2 10/17/25 23:30 95 20 97 Room Air 10/17/25 23:30 98.2 95 20 124/88 (100) 97 98.2 10/17/25 23:19 16 95 Room Air* 0 21 10/17/25 23:03 107 10/17/25 21:24 107 10/17/25 21:11 98.3 108 32 148/86 96 98.3 Laboratory Tests Test 10/17/25 21:17 White Blood Count 6.1 10^3/uL (4.4-10.8) Medications Medications Dose Ordered Sig/Kasandra Route Start Time Stop Time Status Last Admin Dose Admin Albuterol 5 mg ONCE ONCE NEB 10/17/25 23:00 10/17/25 23:01 DC 10/17/25 23:19 Ipratropium [place] 0.5 mg ONCE ONCE NEB 10/17/25 23:00 10/17/25 23:01 DC 10/17/25 23:19 Prednisone 40 mg ONCE ONCE PO 10/17/25 23:00 10/17/25 23:01 DC 10/17/25 23:42 Departure 1 Departure Time of Disposition: 01:01 Impression: Primary Impression: COPD with acute exacerbation Additional Impression: Acute coronary syndrome Disposition: ADMITTED INPATIENT Admit to: Tele Condition: Guarded Discharged With: Self Comments 75-year-old female with a history of COPD now with shortness of breath and chest tightness. Her troponin is elevated. Patient was given aspirin and a breathing treatment. She still has some chest tightness on re-evaluation. Patient will need to be admitted for supportive care and further workup. Critical Care Note Critical Care Time?: Yes (35 min-critical care time only) Critical care comment: Total critical care time: Approximately 36 minutes Due to a high probability of clinically significant, life threatening deterioration, the patient required my highest level of preparedness to intervene emergently and I personally spent this critical care time directly and personally managing the patient. This critical care time included obtaining a history; examining the patient; pulse oximetry; ordering and review of studies; arranging urgent treatment with development of a management plan; evaluation of patient's response to treatment; frequent reassessment; and, discussions with other providers. This critical care time was performed to assess and manage the high probability of imminent, life-threatening deterioration that could result in multi-organ failure. It was exclusive of separately billable procedures and treating other patients. Stability Stability form required: No Heart Score Heart Score: Heart Score Response (Comments) Value History Moderate Suspicious 1 EKG Repolarization Disturb 1 Age >65 2 Risk Factors >3 or Hx ASHD 2 Troponin >3 x's Normal limit 2 Total 8 I personally scribed for JULIANNA ESPINAL MD ([email or web address]) on 10/17/25 at 23:03. Electronically submitted by Herbert Mahan ([email or web address]). I personally scribed for JULIANNA ESPINAL MD ([email or web address]) on 10/18/25 at 00:59. Electronically submitted by Herbert Mahan ([email or web address]). JULIANNA ESPINAL MD Oct 17, 2025 23:03
[2025-10-17] MEDS: IPRATROPIUM BROM 0.5 MG/2.5ML INH SOL NEB ONE (23:19)
[2025-10-17] MEDS: ALBUTEROL SULF 2.5 MG/0.5ML(0.5%) NEB SOLN NEB ONE (23:19)
[2025-10-17 23:30] VITALS: BP 124/88; PULSE 95; RESP 20; TEMP 98.2; O2SAT 97
[2025-10-17] MEDS: predniSONE 20 MG TAB PO ONE (23:42)
== END 2025-10-18 02:37 | disposition left against medical advice (07) ==
LOC: ER 21:11 → EDBD 21:11 → ER 10-18 02:37
DX: J44.1 Chronic obstructive pulmonary disease with (acute) exacerbation (principal); I24.9 Acute ischemic heart disease, unspecified; I10 Essential (primary) hypertension; E78.5 Hyperlipidemia, unspecified; K21.9 Gastro-esophageal reflux disease without esophagitis; F17.210 Nicotine dependence, cigarettes, uncomplicated; I25.2 Old myocardial infarction; I48.91 Unspecified atrial fibrillation; Z79.899 Other long term (current) drug therapy; Z90.49 Acquired absence of other specified parts of digestive tract; Z90.710 Acquired absence of both cervix and uterus; Z98.890 Other specified postprocedural states; Z88.1 Allergy status to other antibiotic agents
CPT/HCPCS: 36415; 71045; 80053; 83880; 84484; 85025; 93005; 94640; 99291; J7512